=== PATIENT | male | born 1955 | race Caucasian/White ===

== ENCOUNTER 2019-10-17 01:18 | Observation (INO) | payer SELFPAY ==
[2019-10-17] VITALS (26 sets, daily range): BP systolic 112–156; BP diastolic 68–89; PULSE 70–112; RESP 15–29; TEMP 36.7–37.2; O2SAT 87–100; BMI 23.7
--- NOTE | 2019-10-17 01:22 | XR_ITS ---
WS: [id number] Portable AP upright chest, 10/17/2019 Clinical Data: cough Comparison: Portable chest, 07/13/2018. Findings: No nodules, masses or effusions are seen. The heart is normal. The pulmonary vascularity is not increased. No pneumonia or pneumothorax is seen. There is a small cyst in the proximal right hum erus. XR/XR chest 1V portable [id number] Impression: Negative chest.
--- NOTE | 2019-10-17 01:22 | ECG_ITS ---
Measurements Intervals [place] Rate: 76 P: 76 WA: 135 QRS: 79 QRSD: 88 T: 77 QT: 333 QTc: 376 SINUS RHYTHM MINIMAL VOLTAGE CRITERIA FOR LVH, CONSIDER NORMAL VARIANT Compared to ECG 07/13/2018 03:07:48 Sinus arrhythmia no longer present Electronically Signed On 10-17-2019 19:51:19 CDT by Ivory Zarate M.D. [id number]
--- NOTE | 2019-10-17 01:26 | ED_ITS ---
HPI - Chest Pain General: Chief Complaint: Chest Pain Stated Complaint: chest wall pain Time Seen by Provider: 10/17/19 01:19 History of Present Illness: HPI narrative: Mario is a 64-year-old male comes in complaining of chest pain. Most of history is taken from EMS as the patient would not cooperate to give a history. EMS reports the patient had abrupt onset left-sided chest pain. It was reproducible to palpation by EMS. There is no reported radiation, nausea or vomiting, or shortness of breath. The patient was given aspirin and nitroglycerin in route with no improvement. He was given 100 mcg of fentanyl and he did have good relief temporarily. There is been no reported cough or fever. EMS reports the patient does have a diagnosis of lung cancer. Further history on the lung cancer cannot be obtained again as the patient is not cooperative at this time. Review of Systems General: Reports: ROS unobtainable due to medical condition (Patient in pain and uncooperative) FOR[facility]LY [facility] ED PFSH: Medical History Chronic back pain COPD (chronic obstructive pulmonary disease) Lung cancer Obstructive sleep apnea Schizophrenia Surgical History H/O hernia repair Social History Smoking and tobacco status: current every day smoker Physical Exam Const: COMMON NORMALS: patient oriented x3, no limitations, healthy appearing and well nourished EXAM LIMITATIONS: no altered mental status GENERAL APPEARANCE: cooperative, well kempt, well developed and in distress HENMT: COMMON NORMALS: normocephalic, atraumatic, hearing grossly normal bilaterally, external ears normal, EAC's normal, Normal external nose present and moist oral mucous membranes HEAD & SCALP: normal to inspection, normocephalic and atraumatic FACE & SINUS: normal facial exam and face symmetric NOSE: Normal external nose present and Normal nares present EXTERNAL EAR: Yes external ears normal EXTERNAL AUDITORY CANAL: EAC's normal MOUTH: Normal oral and palatal mucosa present, lip normal and tongue normal Eye: COMMON NORMALS: Equal, round and reactive pupils present, EOMs intact bilaterally, conjunctivae normal and no scleral icterus GENERAL EYE: appearance normal, both eyes and all related structures ALIGNMENT: Yes alignment normal PERIORBITAL: periorbital findings normal EYELID: eyelids normal CONJUNCTIVA: Yes conjunctivae normal SCLERA: sclerae normal PUPIL: Yes Equal, round and reactive pupils present Neck/C-Spine: COMMON NORMALS: full ROM, no lymphadenopathy, supple, no meningeal signs and no JVD GENERAL: Yes normal visual inspection and Yes t rachea midline CERVICAL SPINE: Yes cervical ROM normal Chest: COMMONS NORMALS: normal inspection of the chest and normal palpation of entire chest wall CHEST: No crepitus and Yes tenderness costochondral junction (Left side) Resp: COMMON NORMALS: normal respiratory effort, No retractions, No use of accessory muscles and clear to auscultation bilaterally EFFORT & INSPECTION: Yes able to speak in complete sentences AUSCULTATION: clear to auscultation bilaterally, no crackles, no rales, no rhonchi and no wheezes Cardio: COMMON NORMALS: no JVD, regular rate, regular rhythm, S1 normal heart sound present, S2 normal heart sound present, No gallops present (Cardio), No clicks present (Cardio), No murmurs present (Cardio) and No rub (Cardio) RATE: regular rate RHYTHM: regular rhythm HEART SOUNDS: S1 normal heart sound present, S2 normal heart sound present, no click, no gallops, no murmurs and no rubs GI: COMMON NORMALS: Soft to palpation, non-tender, No hepatosplenomegaly present and no masses PALPATION: Yes Soft to palpation, No Tenderness to palpation present (GI), No Guarding due to palpation present (GI), No Rigid due to palpation, Yes No hepatosplenomegaly present, No Hernia present, No Palpable mass present and No Pulsatile mass present : COMMON NORMALS: Yes no CVA tenderness BLADDER/KIDNEY EXAM: Yes no CVA tenderness Back/Pelvis: COMMON NORMALS: no CVA tenderness, thoracic and lumbar spine normal to inspection, no thoracic nor lumbar tenderness and thoraco-lumbar ROM normal Extremity: COMMON NORMALS: normal to inspection, full ROM, capillary refill normal, no joint enlargement, no clubbing, cyanosis or edema and no calf tenderness Neuro: COMMON NORMALS: patient oriented x3, CN's II-XII intact bilaterally, moves all extremities, no focal motor deficits and no sensory deficits noted MENINGEAL SIGNS: Yes no meningeal signs SPEECH: speech normal Psych: APPEARANCE: Yes well kempt Skin: COMMON NORMALS: no rashes or lesions noted, turgor normal, no jaundice, no petechiae and no mottling GENERAL SKIN EXAM: no rashes or lesions noted and turgor normal Course Vital Signs: Vital signs: Vital Signs Temperature 98.2 F 10/17/19 01:26 Pulse Rate 109 H 10/17/19 04:55 Respiratory Rate 20 H 10/17/19 04:27 Blood Pressure 137/78 10/17/19 04:00 Pulse Oximetry 95 10/17/19 04:55 MDM - Chest Pain MDM Narrative: Medical decision making narrative: Mr. Schmitt is a 64-year-old male who comes in complaining of sharp pleuritic left-sided chest pain. There is no evidence of pulmonary embolism but he does show pneumonitis. The patient is not cooperative even after pain medication to give a more thorough history. He is not in respiratory distress but every time we arouse him to speak with him he acts as though he is in severe pain but then when left alone he goes back to sleep without any difficulties. [id number] -the patient continued to demand pain medication and after 1 mg of Dilaudid and 4 of morphine he was comfortable. We noticed he was mildly hypoxic. ABG was performed which showed mild CO2 retention. We tried to place him on BiPAP so we would not have to reverse his pain control but the patient will not tolerate wearing it. He is combative with us. Unfortunately he is alert to person, place, time and situation and is refusing to wear the BiPAP. As he has been awoken he is asking for more pain medication. Mentation is much more clear. Lab Data: Labs: Lab Results 10/17/19 10/17/19 10/17/19 Range/Units 01:45 01:45 01:45 WBC 12.5 H (4.0-10.0) 10^3/ uL RBC 4.27 (4.1-5.3) 10^6/u L Hgb 13.1 (11.7-16.6) g/dL Hct 40.1 L (42.0-52.0) % MCV 93.9 (80-94) fL MCH 30.7 (28.0-34.0) pg MCHC 32.7 (30.0-36.0) g/dL RDW 13.1 (12.1-15.1) % Plt Count 267 (130-400) 10^3/c mm MPV 10.7 H (7.4-10.4) fL Neut % (Auto) 86.3 % Lymph % (Auto) 7.4 % [place] % (Auto) 5.3 % Eos % (Auto) 0.5 % Baso % (Auto) 0.2 % Neut # (Auto) 10.8 H (1.8-7.7) 10^3/u L Lymph # (Auto) 0.9 (0.8-4.8) 10^3/u L [place] # (Auto) 0.7 (0.2-0.9) 10^3/u L Eos # (Auto) 0.1 (0.0-0.8) 10^3/u L Baso # (Auto) 0.0 (0.0-0.1) 10^3/u L Nucleated RBC % (a uto) 0 % Nucleated RBCs # 0.0 /100WBC D-Dimer 0.39 (0-0.59) ug/mIFE U Specimen Type Sample Site ABG pH (7.35-7.45) ABG pCO2 (35-45) mmHg ABG pO2 (80.0-100.0) mmH g ABG HCO3 (22-26) mmol/L ABG Base Excess (-2.0-2.0) mmol/ L Jose Test Hematocrit (42-52) % O2 Delivery Device O2 Liters/Min % Band Master ID Sodium 139 (136-145) mmol/L Potassium 3.7 (3.5-5.1) mmol/L Chloride 101 (98-107) mmol/L Carbon Dioxide 24 (22-29) mmol/L Anion Gap 17.7 (5-19) BUN 21 (8-23) mg/dL Creatinine 0.7 (0.7-1.2) mg/dL GFR Calculation 114.3 (90-130) mL/min Glucose 119 H (65-115) mg/dL Calculated Osmolal ity 286 (285-295) mOsm/k g Lactic Acid (0.5-2.2) mmol/L Calcium 9.1 (8.5-10.5) mg/dL Magnesium 2.0 (1.7-2.3) mg/dL Total Bilirubin 0.6 (0.15-1.2) mg/dL AST 26 (0-40) U/L ALT 20 (0-41) U/L Alkaline Phosphata se 90 (40-130) IU/L Troponin T Baselin e (0-15) ng/mL Troponin T 120 Min [place] (0-15) ng/mL Delta Troponin T (0-10) ABS# Total Protein 7.0 (6.6-8.7) g/dL Albumin 4.3 (3.5-5.2) g/dL Globulin 2.7 (1.3-4.6) g/dL Lipase 21 (13-60) U/L 10/17/19 10/17/19 10/17/19 Range/Units 01:45 01:45 04:10 WBC (4.0-10.0) 10^3/ uL RBC (4.1-5.3) 10^6/u L Hgb (11.7-16.6) g/dL Hct (42.0-52.0) % MCV (80-94) fL MCH (28.0-34.0) pg MCHC (30.0-36.0) g/dL RDW (12.1-15.1) % Plt Count (130-400) 10^3/c mm MPV (7.4-10.4) fL Neut % (Auto) % Lymph % (Auto) % [place] % (Auto) % Eos % (Auto) % Baso % (Auto) % Neut # (Auto) (1.8-7.7) 10^3/u L Lymph # (Auto) (0.8-4.8) 10^3/u L [place] # (Auto) (0.2-0.9) 10^3/u L Eos # (Auto) (0.0-0.8) 10^3/u L Baso # (Auto) (0.0-0.1) 10^3/u L Nucleated RBC % (a uto) % Nucleated RBCs # /100WBC D-Dimer (0-0.59) ug/mIFE U Specimen Type Sample Site ABG pH (7.35-7.45) ABG pCO2 (35-45) mmHg ABG pO2 (80.0-100.0) mmH g ABG HCO3 (22-26) mmol/L ABG Base Excess (-2.0-2.0) mmol/ L Jose Test Hematocrit (42-52) % O2 Delivery Device O2 Liters/Min % Band Master ID Sodium (136-145) mmol/L Potassium (3.5-5.1) mmol/L Chloride (98-107) mmol/L Carbon Dioxide (22-29) mmol/L Anion Gap (5-19) BUN (8-23) mg/dL Creatinine (0.7-1.2) mg/dL GFR Calculation (90-130) mL/min Glucose (65-115) mg/dL Calculated Osmolal ity (285-295) mOsm/k g Lactic Acid 0.6 (0.5-2.2) mmol/L Calcium (8.5-10.5) mg/dL Magnesium (1.7-2.3) mg/dL Total Bilirubin (0.15-1.2) mg/dL AST (0-40) U/L ALT (0-41) U/L Alkaline Phosphata se (40-130) IU/L Troponin T Baselin e 9 (0-15) ng/mL Troponin T 120 Min [place] 9.86 (0-15) ng/mL Delta Troponin T 0.86 (0-10) ABS# Total Protein (6.6-8.7) g/dL Albumin (3.5-5.2) g/dL Globulin (1.3-4.6) g/dL Lipase (13-60) U/L 05/18/20 Range/Units 04:30 WBC (4.0-10.0) 10^3/ uL RBC (4.1-5.3) 10^6/u L Hgb (11.7-16.6) g/dL Hct (42.0-52.0) % MCV (80-94) fL MCH (28.0-34.0) pg MCHC (30.0-36.0) g/dL RDW (12.1-15.1) % Plt Count (130-400) 10^3/c mm MPV (7.4-10.4) fL Neut % (Auto) % Lymph % (Auto) % [place] % (Auto) % Eos % (Auto) % Baso % (Auto) % Neut # (Auto) (1.8-7.7) 10^3/u L Lymph # (Auto) (0.8-4.8) 10^3/u L [place] # (Auto) (0.2-0.9) 10^3/u L Eos # (Auto) (0.0-0.8) 10^3/u L Baso # (Auto) (0.0-0.1) 10^3/u L Nucleated RBC % (a uto) % Nucleated RBCs # /100WBC D-Dimer (0-0.59) ug/mIFE U Specimen Type Arterial Sample Site Radial, right ABG pH 7.27 L (7.35-7.45) ABG pCO2 54.4 H (35-45) mmHg ABG pO2 62.8 L (80.0-100.0) mmH g ABG HCO3 25.2 (22-26) mmol/L ABG Base Excess -2.4 L (-2.0-2.0) mmol/ L Jose Test N/a Hematocrit 40.5 L (42-52) % O2 Delivery Device Nc O2 Liters/Min 3.5 % Band Master ID [email or web address] Sodium (136-145) mmol/L Potassium (3.5-5.1) mmol/L Chloride (98-107) mmol/L Carbon Dioxide (22-29) mmol/L Anion Gap (5-19) BUN (8-23) mg/dL Creatinine (0.7-1.2) mg/dL GFR Calculation (90-130) mL/min Glucose (65-115) mg/dL Calculated Osmolal ity (285-295) mOsm/k g Lactic Acid (0.5-2.2) mmol/L Calcium (8.5-10.5) mg/dL Magnesium (1.7-2.3) mg/dL Total Bilirubin (0.15-1.2) mg/dL AST (0-40) U/L ALT (0-41) U/L Alkaline Phosphata se (40-130) IU/L Troponin T Baselin e (0-15) ng/mL Troponin T 120 Min [place] (0-15) ng/mL Delta Troponin T (0-10) ABS# Total Protein (6.6-8.7) g/dL Albumin (3.5-5.2) g/dL Globulin (1.3-4.6) g/dL Lipase (13-60) U/L Imaging Data^: CXR: My impression: Normal heart size, left upper lobe infiltrate EKG Data^: EKG 1: Attestation: I personally reviewed and interpreted this EKG as follows: EKG interpretation date: 10/17/19 EKG interpretation time: 01:33 Interpretation: Normal sinus rhythm at 76 beats a minute, LVH, nonspecific ST and T wave changes. Similar to previous. Coding Level of Care Code ED Operator Specialist Communications for Chg Fwd Exam Comprehensive
[2019-10-17] MEDS: sodium chloride 0.9% 1,000 ML 999 ML IV (01:49)
[2019-10-17 01:50] LABS: Basophils % 0.2 %; Eosinophils # 0.1 10^3/uL (0.0-0.8); Eosinophils % 0.5 %; Hematocrit 40.1 % (42.0-52.0); Hemoglobin 13.1 g/dL (11.7-16.6); Lymphocytes # 0.9 10^3/uL (0.8-4.8); Lymphocytes % 7.4 %; Mean Corpuscular HGB Conc 32.7 g/dL (30.0-36.0); Mean Corpuscular Hemoglobin 30.7 pg (28.0-34.0); Mean Corpuscular Volume 93.9 fL (80-94); Mean Platelet Volume 10.7 fL (7.4-10.4); Monocytes # 0.7 10^3/uL (0.2-0.9); Monocytes % 5.3 %; Neutrophils # 10.8 10^3/uL (1.8-7.7); Neutrophils % 86.3 %; Nucleated Red Blood Cells % 0 %; Platelet Count 267 10^3/cmm (130-400); Red Blood Count 4.27 10^6/uL (4.1-5.3); Red Cell Distribution Width 13.1 % (12.1-15.1); White Blood Count 12.5 10^3/uL (4.0-10.0)
[2019-10-17] MEDS: ondansetron 2 mg/ML SDV 2 mL 4 MG IVP (01:50)
[2019-10-17] MEDS: HYDROmorphone 1 mg/mL INJ 1 mL IVP (01:51)
--- NOTE | 2019-10-17 01:59 | CTR_ITS ---
PROCEDURE INFORMATION: Exam: CT Angiography Chest With Contrast Exam date and time: 10/17/2019 2:33 AM Age: 64 years old Clinical indication: Chest wall pain; Additional info: Chest pain TECHNIQUE: Imaging protocol: Computed tomographic angiography of the chest with intravenous contrast. 3D rendering: MIP and/or 3D reconstructed images were created by the technologist. Radiation optimization: All CT scans at this facility use at least one of these dose optimization techniques: automated exposure control; mA and/or kV adjustment per patient size (includes targeted exams where dose is matched to clinical indication); or iterative reconstruction. Contrast material: OMNI 350; Contrast volume: 95 ml; Contrast route: IV; COMPARISON: CR XR chest 1V portable [id number] 10/17/2019 1:48 AM RADIATION DOSE METRICS: Total DLP: 600.42 mGy-cm FINDINGS: Pulmonary arteries: Normal. No pulmonary emboli. Aorta: Unremarkable. No aortic aneurysm. No aortic dissection. Lungs: A focal patchy opacity is seen in the right upper lobe posteriorly. More prominent patchy opacity seen in the left upper lobe anteriorly. Third opacities seen superimposed over the right hemidiaphragm posteriorly. These findings could represent a patchy bilateral pneumonitis, left more prominent than right. Pleural space: Unremarkable. No pneumothorax. No pleural effusion. Heart: Unremarkable. No cardiomegaly. No pericardial effusion. Lymph nodes: Prominent mediastinal lymph nodes seen, the largest seen in the aortopulmonic window measuring 16.2 mm . A prominent partially calcified subcarinal lymph node is seen. Adrenals: The left adrenal gland is mildly prominent likely representing adrenal hyperplasia. No discrete masses are seen. Bones/joints: Unremarkable. No acute fracture. Soft tissues: Unremarkable. CT/CT angio chest PE protcl [id number] IMPRESSION: 1. Patchy opacities are seen within the hemithoraces bilaterally, the largest opacities seen in the left upper lobe anteriorly. These findings could represent patchy bilateral pneumonitis. 2. Mildly prominent mediastinal lymph nodes are seen. These could represent reactive lymph nodes. 3. Mildly prominent left adrenal gland without evidence of discrete masses. This likely represents adrenal hyperplasia. Radiation Dose CTDIVOL = (mGy): DLP = 600.42 (mGy-cm)
[2019-10-17 02:05] LABS: Alanine Aminotransferase 20 U/L (0-41); Albumin Level 4.3 g/dL (3.5-5.2); Alkaline Phosphatase 90 IU/L (40-130); Anion Gap 17.7 (5-19); Aspartate Amino Transferase 26 U/L (0-40); Blood Urea Nitrogen 21 mg/dL (8-23); Calcium 9.1 mg/dL (8.5-10.5); Carbon Dioxide 24 mmol/L (22-29); Chloride 101 mmol/L (98-107); Globulin 2.7 g/dL (1.3-4.6); Glomerular Filtration Rate 114.3 mL/min (90-130); Glucose 119 mg/dL (65-115); Lipase 21 U/L (13-60); Osmolality Calculated 286 mOsm/kg (285-295); Potassium 3.7 mmol/L (3.5-5.1); Sodium 139 mmol/L (136-145); Total Bilirubin 0.6 mg/dL (0.15-1.2)
[2019-10-17 02:06] LABS: Troponin(5th) Baseline 9 ng/mL (0-15)
[2019-10-17 02:13] LABS: D Dimer 0.39 ug/mIFEU (0-0.59)
[2019-10-17] MEDS: sodium chloride 0.9% 1,000 ML 100 ML IV (02:29)
[2019-10-17] MEDS: iohexol 350 mg/mL 100 mL Btl IV (02:34)
[2019-10-17] MEDS: morphine 4 mg/mL SDV 1 mL IVP ×2 (02:55→03:04)
--- NOTE | 2019-10-17 03:22 | ECG_ITS ---
Measurements Intervals [place] Rate: 104 P: 73 AL: 142 QRS: 81 QRSD: 86 T: 78 QT: 310 QTc: 408 SINUS TACHYCARDIA NONSPECIFIC T-WAVE ABNORMALITY Compared to ECG 07/13/2018 03:07:48 T-wave abnormality now present Sinus rhythm no longer present Sinus arrhythmia no longer present Left ventricular hypertrophy no longer present Electronically Signed On 10-17-2019 20:20:17 CDT by Ivory Zarate M.D. [email or web address]
[2019-10-17] MEDS: levofloxacin-dextrose 5 % 750 MG/150 ML PREMIX 150 MG IV (03:55)
[2019-10-17] MEDS: ipratropium-albuterol 3 mL Neb INHALATION (04:22)
[2019-10-17 04:27] LABS: Lactic Sepsis W/Reflex 0.6 mmol/L (0.5-2.2)
[2019-10-17 04:33] LABS: Troponin 5 2HR 9.86 ng/mL (0-15); Troponin 5 2HR Delta 0.86 ABS# (0-10)
[2019-10-17 04:36] LABS: ABG PCO2 54.4 mmHg (35-45); ABG PH Result 7.27 (7.35-7.45); Arterial Blood Gas Hematocrit 40.5 % (42-52); Base Excess ABG -2.4 mmol/L (-2.0-2.0); Blood Gas LPM 3.5 %; Blood Gas Sample Site Radial, right; Blood Gas Sample Type Arterial; HCO3 ABG 25.2 mmol/L (22-26); Oxygen Device NC; PO2 ABG 62.8 mmHg (80.0-100.0)
[2019-10-17] MEDS: ipratropium-albuterol 3 mL Neb 6 ML INHALATION (04:57)
--- NOTE | 2019-10-17 05:01 | P.HP_ITS ---
Providers/Chief Complaint Chief Complaint: chest wall pain History of Present Illness Mario Schmitt is a 64 year old male with past medical history of schizophrenia, COPD, chronic back pain who was brought by EMS due to complaints of chest pain. Reportedly the chest pain was reproducible. EKG did not show any acute ischemic changes. Troponin was negative. The patient received fentanyl by EMS 100 mcg. He was awake but not cooperative on presentation. Due to suspicion for possible PE the patient was sent to radiology for CTA. Due to complaints of continuous pain before and during the study the patient received morphine twice, probably total of 10 mg. Currently the patient is sedated. It seems that he can listen and understand the speech but chooses not to answer. He does not follow instructions. There is no significant distress. Unable to obtain additional information from the patient. CTA chest showed bilateral infiltrates concerning for possible pneumonitis. Ozzie galdamez in conversation with the ER physician he also mentioned having history of lung cancer. However there was no information in the chart regarding this diagnosis. Again because the patient is poor historian were unable to obtain details. Review of Systems General: Reports: ROS unobtainable due to mental status Medications/Allergies Allergies Allergy/AdvReac Type Severity Reaction Status Date / Time Sulfa (Sulfonamide Allergy ALGY-Rash Verified 10/17/19 01:26 Antibiotics) PFSH Acute PFSH: Medical History Chronic back pain COPD (chronic obstructive pulmonary disease) Lung cancer Obstructive sleep apnea Schizophrenia Surgical History H/O hernia repair Social History Smoking and tobacco status: current every day smoker Vitals/I&O/Wt Last Vital Signs Temp 98.2 F 10/17/19 01:26 Pulse 100 10/17/19 04:57 Resp 22 H 10/17/19 04:57 BP 137/78 10/17/19 04:00 Pulse Ox 95 10/17/19 04:57 10/16/19 10/16/19 10/17/19 14:59 22:59 06:59 Intake Total 1000 / 1000 Balance 1000 / 1000 Weight last 48 hrs Weight 83.915 kg Physical Exam Narrative: EXAM NARRATIVE: The patient is sedated and noncooperative. His eyes are closed. He occasionally opens his eyes but does not follow instructions. Does not answer to questions. Frequently moves in the bed. No distress. Skin is warm and dry. Moist mucous membranes. Eyes Robyn, extraocular muscles seem to be intact. No icterus. Neck is supple. No JVD Lungs no significant crackles or wheezes. No respiratory distress Heart S1, S2, regular Abdomen soft, nontender, bowel sounds are present Extremities trace edema no cyanosis no calf tenderness bilaterally normal capillary refill. Normal peripheral pulses. No facial asymmetry. Data : 10/17/19 01:45 10/17/19 01:45 Other Labs: Laboratory Results WBC 12.5 10^3/uL (4.0-10.0) H 10/17/19 01:45 RBC 4.27 10^6/uL (4.1-5.3) 10/17/19 01:45 Hgb 13.1 g/dL (11.7-16.6) 10/17/19 01:45 Hct 40.1 % (42.0-52.0) L 10/17/19 01:45 MCV 93.9 fL (80-94) 10/17/19 01:45 MCH 30.7 pg (28.0-34.0) 10/17/19 01:45 MCHC 32.7 g/dL (30.0-36.0) 10/17/19 01:45 RDW 13.1 % (12.1-15.1) 10/17/19 01:45 Plt Count 267 10^3/cmm (130-400) 10/17/19 01:45 MPV 10.7 fL (7.4-10.4) H 10/17/19 01:45 Neut % (Auto) 86.3 % 10/17/19 01:45 Lymph % (Auto) 7.4 % 10/17/19 01:45 [place] % (Auto) 5.3 % 10/17/19 01:45 Eos % (Auto) 0.5 % 10/17/19 01:45 Baso % (Auto) 0.2 % 10/17/19 01:45 Neut # (Auto) 10.8 10^3/uL (1.8-7.7) H 10/17/19 01:45 Lymph # (Auto) 0.9 10^3/uL (0.8-4.8) 10/17/19 01:45 [place] # (Auto) 0.7 10^3/uL (0.2-0.9) 10/17/19 01:45 Eos # (Auto) 0.1 10^3/uL (0.0-0.8) 10/17/19 01:45 Baso # (Auto) 0.0 10^3/uL (0.0-0.1) 10/17/19 01:45 Nucleated RBC % (auto) 0 % 10/17/19 01:45 Nucleated RBCs # 0.0 /100WBC 10/17/19 01:45 D-Dimer 0.39 ug/mIFEU (0-0.59) 10/17/19 01:45 Specimen Type Arterial 10/17/19 04:30 Sample Site Radial, right 10/17/19 04:30 ABG pH 7.27 (7.35-7.45) L 10/17/19 04:30 ABG pCO2 54.4 mmHg (35-45) H 10/17/19 04:30 ABG pO2 62.8 mmHg (80.0-100.0) L 10/17/19 04:30 ABG HCO3 25.2 mmol/L (22-26) 10/17/19 04:30 ABG Base Excess -2.4 mmol/L (-2.0-2.0) L 10/17/19 04:30 Jose Test N/a 10/17/19 04:30 Hematocrit 40.5 % (42-52) L 10/17/19 04:30 O2 Delivery Device Nc 10/17/19 04:30 O2 Liters/Min 3.5 % 10/17/19 04:30 Filling Machine Tender ID [email or web address] 10/17/19 04:30 Sodium 139 mmol/L (136-145) 10/17/19 01:45 Potassium 3.7 mmol/L (3.5-5.1) 10/17/19 01:45 Chloride 101 mmol/L (98-107) 10/17/19 01:45 Carbon Dioxide 24 mmol/L (22-29) 10/17/19 01:45 Anion Gap 17.7 (5-19) 10/17/19 01:45 BUN 21 mg/dL (8-23) 10/17/19 01:45 Creatinine 0.7 mg/dL (0.7-1.2) 10/17/19 01:45 GFR Calculation 114.3 mL/min (90-130) 10/17/19 01:45 Glucose 119 mg/dL (65-115) H 10/17/19 01:45 Calculated Osmolality 286 mOsm/kg (285-295) 10/17/19 01:45 Lactic Acid 0.6 mmol/L (0.5-2.2) 10/17/19 01:45 Calcium 9.1 mg/dL (8.5-10.5) 10/17/19 01:45 Magnesium 2.0 mg/dL (1.7-2.3) 10/17/19 01:45 Total Bilirubin 0.6 mg/dL (0.15-1.2) 10/17/19 01:45 AST 26 U/L (0-40) 10/17/19 01:45 ALT 20 U/L (0-41) 10/17/19 01:45 Alkaline Phosphatase 90 IU/L (40-130) 10/17/19 01:45 Troponin T Baseline 9 ng/mL (0-15) 10/17/19 01:45 Troponin T 120 Min[place] 9.86 ng/mL (0-15) 10/17/19 04:10 Delta Troponin T 0.86 ABS# (0-10) 10/17/19 04:10 Total Protein 7.0 g/dL (6.6-8.7) 10/17/19 01:45 Albumin 4.3 g/dL (3.5-5.2) 10/17/19 01:45 Globulin 2.7 g/dL (1.3-4.6) 10/17/19 01:45 Lipase 21 U/L (13-60) 10/17/19 01:45 Impressions Chest CTA 10/17/19 01:59 IMPRESSION: 1. Patchy opacities are seen within the hemithoraces bilaterally, the largest opacities seen in the left upper lobe anteriorly. These findings could represent patchy bilateral pneumonitis. 2. Mildly prominent mediastinal lymph nodes are seen. These could represent reactive lymph nodes. 3. Mildly prominent left adrenal gland without evidence of discrete masses. This likely represents adrenal hyperplasia. Radiation Dose CTDIVOL = (mGy): DLP = 600.42 (mGy-cm) A&P Additional A&P Information 64-year-old male with past medical history of COPD, chronic pain syndrome and schizophrenia who presented with complaints of chest pain. Received several doses of opiates and currently sedated. Also there is a suspicion that the patient is intentionally noncooperative with doctors and nurses. CTA chest shows bilateral infiltrates concerning for bilateral pneumonitis. The patient reported earlier having diagnosis of lung cancer. Details are unknown. EKG shows no acute ischemic changes and the troponin was negative. Reportedly the pain was reproducible. Chest pain. Probably noncardiac. Continue close monitoring. Bilateral pneumonitis. Was given Levaquin which we will continue. Checking procalcitonin level. It is possible that the findings on the imaging study are related to prior history of cancer. When the patient is more cooperative we will try to obtain more information regarding this diagnosis. Additional testing might be necessary. Additional referrals might be necessary. History of COPD. Currently stable. No evidence of exacerbation. Has mild hypoxia which responded well to supplemental oxygen. He will receive PRN DuoNeb's. Adrenal hyperplasia accidentally found on the chest CT. Please inform the patient prior to discharge and ask for outpatient follow-up with the primary care physician. DVT prophylaxis. Lovenox. Attestations Medical Necessity Statement*: Observation Coding Level of Care Code Acute Molding Process Technician for Italo Feliciano
[2019-10-17] MEDS: enoxaparin 40 mg/0.4 mL Syringe SUBCUT (05:16)
[2019-10-17] MEDS: sodium chloride 0.9% 1,000 ML 75 ML IV (06:01)
[2019-10-17 06:33] LABS: ABG PCO2 48.9 mmHg (35-45); ABG PH Result 7.31 (7.35-7.45); Arterial Blood Gas Hematocrit 40.3 % (42-52); Base Excess ABG -2.3 mmol/L (-2.0-2.0); Blood Gas Sample Site Radial, left; Blood Gas Sample Type Arterial; HCO3 ABG 24.5 mmol/L (22-26); Oxygen Device BIPAP; PO2 ABG 87.8 mmHg (80.0-100.0)
--- NOTE | 2019-10-17 07:22 | ECG_ITS ---
Measurements Intervals [place] Rate: 88 P: 68 AL: 120 QRS: 74 QRSD: 94 T: 77 QT: 354 QTc: 430 SINUS RHYTHM Compared to ECG 07/13/2018 03:07:48 Sinus arrhythmia no longer present Left ventricular hypertrophy no longer present Electronically Signed On 10-17-2019 20:17:53 CDT by Ivory Zarate M.D. [id number]
[2019-10-17 07:28] LABS: Procalcitonin 0.26 ng/mL (0-0.5)
--- NOTE | 2019-10-17 09:58 | PC.CHAP ---
Pastoral Care Encounter/Spiritual Assessment Type of Contact [] Declined dumper bulk system visit [] Patient/Family/Request visit [] Outpatient visit [] Follow-up visit [] Physician referral [] Code/Alert [x] Routine visit [] Staff referral [] Actively dying [x] Patient sleeping [] Family support [] [] Out of room [] Palliative care [] [] Receiving care in room [] Pre-surgical visit [] Trauma [] Long length of stay [] ICU visit [] Other: Relational/Emotional Strength [] Patient feels connected with others/family/visitors/staff [] Distress [] Loneliness/isolation [] Abandonment Spirituality of Patient [] Person of Rut [] Attends Episcopalian of their Rut [] Believes in Prayer [] Reads Bible or Faith materials [] There are Spiritual issues to be addressed Mental Retardation Aide Interventions [] Prayer [] Active listening [] Non-anxious presence [] Spiritual/emotional support [] Crisis/trauma care [] Spiritual counseling [] Bereavement support [] Provided bereavement packet [] Provided Bible/devotional materials [] Provided toy/stuffed animal, coloring book to patient or family member [] Provided Communion [] Anointing/Duff [] Salvation [x] Completed spiritual assessment [] Other: Impact on Illness or Injury [] Angry [] Fearful [] Anxious [] Often cries [] Exhaustion [] Unable to work [] Unable to attend catholic [] Unable to walk/stand [] Unable to read [] Unable to drive [] Unable to eat/drink [] Unable to sleep [] Unable to be with family [] Patient intubated [] Other: Summary Time spent with patient
[2019-10-17 15:15] LABS: Bilirubin Urine Neg (NEGATIVE); Blood Urine Neg (Negative); Glucose Urine UA Norm (Normal); Ketones Urine 1+ (Negative); Leukocyte Esterase Urine Negative (Negative); Nitrate Urine Negative (Negative); Protein Urine Neg (Negative); Urine Appearance Clear (CLEAR); Urine Color Yellow (Yellow); Urobilinogen Urine Norm (Negative); pH Urine 5 (5-7)
[2019-10-17 15:21] LABS: Bacteria Urine 1+; Squamous Epithelial Cell Urine 0-4 (0-5); WBC Urine 0-4 /hpf (0-5)
[2019-10-17 15:22] LABS: Add Urine Culture? No
--- NOTE | 2019-10-17 16:21 | PC.NURSE ---
HOURLY ROUNDING PT RECEIVED A PHONE CALL FROM FAMILY. NURSE NOTIFIED PT OF PHONE CALL. PT SAID, I DON'T WANT TO TALK TO ANYONE RIGHT NOW. FAMILY MEMBER NOTIFIED TO CALL BACK LATER. NURSE PAOLO PRESENT IN THE PT ROOM AT THIS TIME.
--- NOTE | 2019-10-17 16:41 | PC.NURSE ---
NURSE ROUNDING 1330 UPON ENTERING ROOM PT IS SCREAMING, WHERE THE FUCK IS MY FOOD? I HAVEN'T ATE SINCE 11 LAST NIGHT! I'M LEAVING, I DONT CARE. I'M NOT GETTING WHAT I WANT HERE, I HAVEN'T FUCKING ATE ANYTHING SINCE 11! THIS NURSE REPLIED, YOU'RE DOCTOR JUST PUT IN A DIET ORDER. YOU'RE FOOD TRAY WILL BE UP HERE SHORTLY. WE HAVE SOME SNACKS YOU CAN HAVE IF YOU WOULD LIKE. PT STATES, WHERE WAS MY FOOD 3 FUCKING HOURS AGO WHEN I ASK FOR IT. I DON'T CARE I AM GOING HOME. NURSE EXPLAINS AGAIN THAT THE PT DIET WAS NPO AT THE TIME AND THE PHYSICIAN JUST PLACED NEW ORDERS FOR A REGULAR DIET. PT PROCEEDED TO RIP OFF HIS GOWN AND TELEMETRY AND THROW THEM ACROSS THE ROOM. SECURITY WAS CALLED AND CHARGE NURSE REE CAME TO ROOM. DR. WILLIS NOTIFIED. PT STATES, WHY HAVE I NOT GOTTEN ANY FOOD? IT'S BECAUSE NO DOCTOR HAS CAME TO SEE ME. NO ONE. IF I'M NOT BEING FED WHY AM I HERE? PT THEN GO IN THE RESTROOM AND CHANGES INTO JEANS. THE ASSISTANT NEWS DIRECTOR BROUGHT PT SNACKS. PT WALKED OVER TO BED AND BEGAN EATING. PT STATES, I'LL STAY, BUT I WANT TO SEE MY DOCTOR SOON AND I WANT MORE FOOD. NURSE, AGAIN NOTIFIED DR WILLIS.
--- NOTE | 2019-10-17 18:07 | PC.NURSE ---
PHYSICIAN ROUNDING 174 UPON ENTERING PT ROOM WITH DR. WILLIS. PT RESTING IN BED WITH EYES CLOSED. DR. WILLIS ASKED PT, HOW ARE YOU FEELING MR. PALMA? PT STATED, NOT GOOD, MY CHEST HURTS THAT'S IT. DR. WILLIS ATTEMPTED TO ASK PT MORE QUESTION. PT BECAME UNCOOPERATIVE,NONVERBAL WITH EYES OPEN, REFUSING TO ANSWER ANY QUESTION OR SPEAK BACK TO THE PHYSICIAN. PT CONTINUED TO REST IN BED. DR. WILLIS STATED THAT SHE WOULD LIKE PT REST, ROUND ON PT AGAIN BEFORE END OF SHIFT.
--- NOTE | 2019-10-17 18:23 | PC.NURSE ---
@ 1750 Patient request to see physician. Dr went to talk with patient and patient became agitated and verbally inappropriate with physician during conversation. Patient voices that he hasn't seen physician since 8 last night. States what are you doing for me? Security called. Attempt to speak with patient without success. He states hes leaving and going home to [place]. AMA papers filled out.
--- NOTE | 2019-10-17 18:29 | PC.NURSE ---
SHORTLY AFTER ROUNDING WITH MINERVA OLIVAS. MR. PALMA WAS FOUND ANGRILY WALKING DOWN THE RUBIO FROM HIS ROOM. THIS NURSE ASKED, MR. PALMA I SEE YOU'RE WALKING THE HALLS. ARE YOU DOING OKAY? REPLIED, NO, I'M NOT OKAY. MY FUCKING DOCTOR CAME INTO THE ROOM AND ASKED ME HOW I WAS DOING AND THEN LEFT. SHE DIDN'T ASK ANYTHING ELSE OR EXPLAIN ANYTHING TO ME. THIS NURSE REPLIED, DR. WILLIS IS WITH ANOTHER PT AT THE MOMENT. SHE WAS LETTING YOU REST A LITTLE WHILE LONGER AND THEN SHE INTENDED TO COME BACK IN YOUR ROOM. PT REPLAIED, I NEED TO SEE MY FUCKING DOCTOR NOW.I'M TIRED OF THIS FUCKING PLACE. PT THEN WALKED BACK TO HIS ROOM. DR. WILLIS WAS NOTIFIED. ROUNDED ON PT IMMEDIATELY AFTER BEING NOTIFIED. CHARGE NURSE REE AND THIS NURSE IN THE ROOM AT BEDSIDE. DR. WILLIS BEGAN TO SPEAK WITH PT. PT BECAME AGITATED AND VERBALLY INAPPROPRIATE WITH PHYSICIAN DURING CONVERSATION. PT STATES, I HAVEN'T BEEN SEEN BY A PHYSICIAN SINCE 1999 LAST NIGHT. WHAT ARE YOU DOING FOR ME SECURITY CALLED. PT DEMANDED TO LEAVE AMA. PT SIGNED AMA PAPERS, IVs REMOVED. PT WALKED OUT BY NURSE NUTRITION REPRESENTATIVE, CHARGE NURSE, AND SECURITY.
--- NOTE | 2019-10-17 21:48 | PM.MISC ---
Miscellaneous Note Note: Patient quite verbally aggressive and abusive during my encounter stating that I should have seen him sooner though he was seen by an ED provider as well as crime scene specialist earlier this morning. Tried to review care plan with the patient with continued escalation in her verbal aggression. Nurses Raquel Eldridge and Hermelinda Jordan present in room during the encounter. Patient then elected to leave A.
--- NOTE | 2019-10-17 21:49 | P.DS_ITS ---
Discharge Providers Date of Admission: 10/17/19 04:53 Date of Discharge: October 17, 2019 Attending Provider at Admission: Rory Byrd Attending Provider at Discharge: Rory Byrd Diagnoses at Discharge Discharge Diagnosis (1) COPD (chronic obstructive pulmonary disease): Status: Acute Problem details: -Noted bilateral pneumonitis on imaging -Oxygen dependent at baseline with a 2 L nasal cannula requirement -Was treated with IV steroids, empiric laura Tolliver Qualifiers: COPD type: COPD with acute exacerbation Qualified Code(s): J44.1 - Chronic obstructive pulmonary disease with (acute) exacerbation Other Information Additional DC diagnoses/information: -hx of lung cancer -hx of schizophrenia -chronic smoker Reason for Visit Reason for Visit: Reason For Visit: chest wall pain Hospital Course Hospital Course: Patient was admitted to the medical surgical floor and started on empiric IV antibiotics, received nebulizer treatments with close monitoring of his respiratory status. He was noted to have bilateral pneumonitis on imaging and was on supplemental oxygen support as well. Patient was quite verbally aggressive during my encounter with him and he elected to leave [place]. Physical Exam Const: COMMON NORMALS: no acute distress and patient oriented x3 GENERAL APPEARANCE: cooperative and comfortable ORIENTATION/CONSCIOUSNESS: Yes awake HENMT: COMMON NORMALS: normocephalic, atraumatic, hearing grossly normal bilaterally and moist oral mucous membranes HEAD & SCALP: normocephalic and atraumatic Eye: COMMON NORMALS: Equal, round and reactive pupils present, EOMs intact bilaterally and conjunctivae normal CONJUNCTIVA: Yes conjunctivae normal PUPIL: Yes Equal, round and reactive pupils present Neck/C-Spine: COMMON NORMALS: full ROM GENERAL: Yes normal visual inspection and Yes trachea midline Resp: COMMON NORMALS: normal respiratory effort, No retractions and No use of accessory muscles EFFORT & INSPECTION: Yes able to speak in complete sentences, Yes symmetric chest movement and No tachypneic AUSCULTATION: diminished lung sounds OTHER: -on 3 L NC Cardio: COMMON NORMALS: regular rate, regular rhythm, S1 normal heart sound present, S2 normal heart sound present and No murmurs present (Cardio) RATE: regular rate RHYTHM: regular rhythm HEART SOUNDS: S1 normal heart sound present and S2 normal heart sound present GI: COMMON NORMALS: Normal to inspection, nondistended, normoactive bowel sounds present, Soft to palpation and non-tender PALPATION: Yes Soft to palpation Extremity: COMMON NORMALS: normal to inspection, full ROM, no clubbing, cyanosis or edema and no pedal edema Neuro: COMMON NORMALS: patient oriented x3, moves all extremities, no focal motor deficits, no sensory deficits noted and gait normal Psych: COMMON NORMALS: mental status grossly normal, Normal thought process present, cooperative, normal affect and speech normal SPEECH: Yes normal speech THOUGHT PROCESS: Normal thought process present Skin: COMMON NORMALS: no rashes or lesions noted, no jaundice, no petechiae and no mottling GENERAL SKIN EXAM: no rashes or lesions noted Discharge Data Data Completed and Pending: Completed Studies During Hospitalization Category Date Time Status CT angio chest PE protcl [id number] Stat Cat Scan 10/17/19 01:59 Completed XR chest 1V lily ble [id number] Stat Exams 10/17/19 01:22 Completed Pending at discharge Category Date Time Status Basic Metabolic P emil AM LABS Lab 10/18/19 04:00 Ordered Complete Blood Co unt w/Auto AM LABS Lab 10/18/19 04:00 Ordered Complete Blood Co unt w/Auto AM LABS Lab 10/19/19 04:00 Ordered Complete Blood Co unt w/Auto AM LABS Lab 10/20/19 04:00 Ordered Magnesium AM LABS Lab 10/18/19 04:00 Ordered Labs from last 24 hours 10/17/19 10/17/19 10/17/19 13:30 08:04 06:27 WBC RBC Hgb Hct MCV MCH MCHC RDW Plt Count MPV Neut % (Auto) Lymph % (Auto) [place] % (Auto) Eos % (Auto) Baso % (Auto) Neut # (Auto) Lymph # (Auto) [place] # (Auto) Eos # (Auto) Baso # (Auto) Nucleated RBC % (a uto) Nucleated RBCs # D-Dimer Specimen Type Arterial Sample Site Radial, left ABG pH 7.31 L ABG pCO2 48.9 H ABG pO2 87.8 ABG HCO3 24.5 ABG Base Excess -2.3 L Jose Test N/a Hematocrit 40.3 L O2 Delivery Device Bipap O2 Liters/Min FiO2 30.0 Firer Portable Boiler ID [id number] Sodium Potassium Chloride Carbon Dioxide Anion Gap BUN Creatinine GFR Calculation Glucose Calculated Osmolal ity Lactic Acid Calcium Magnesium Total Bilirubin AST ALT Alkaline Phosphata se Troponin I 6 Hour 11.50 Troponin I Hi Sens Del 2.50 Troponin T Baselin e Troponin T 120 Min [place] Troponin T Total Protein Albumin Globulin Lipase Procalcitonin TSH Urine Color Yellow Urine Appearance Clear Urine pH 5 Ur Specific Gravit y 1.020 Urine Protein Neg Urine Glucose (UA) Norm Urine Ketones 1+ H Urine Blood Neg Urine Nitrate Negative Urine Bilirubin Neg Urine Urobilinogen Norm Ur Leukocyte Nadiya ase Negative Urine RBC None Urine WBC 0-4 H Ur Squamous Epith Cells 0-4 H Urine Bacteria 1+ H 10/17/19 10/17/19 10/17/19 04:30 04:10 04:10 WBC RBC Hgb Hct MCV MCH MCHC RDW Plt Count MPV Neut % (Auto) Lymph % (Auto) [place] % (Auto) Eos % (Auto) Baso % (Auto) Neut # (Auto) Lymph # (Auto) [place] # (Auto) Eos # (Auto) Baso # (Auto) Nucleated RBC % (a uto) Nucleated RBCs # D-Dimer Specimen Type Arterial Sample Site Radial, right ABG pH 7.27 L ABG pCO2 54.4 H ABG pO2 62.8 L ABG HCO3 25.2 ABG Base Excess -2.4 L Jose Test N/a Hematocrit 40.5 L O2 Delivery Device Nc O2 Liters/Min 3.5 FiO2 Firer Portable Boiler ID [id number] Sodium Potassium Chloride Carbon Dioxide Anion Gap BUN Creatinine GFR Calculation Glucose Calculated Osmolal ity Lactic Acid Calcium Magnesium Total Bilirubin AST ALT Alkaline Phosphata se Troponin I 6 Hour Troponin I Hi Sens Del Troponin T Baselin e Troponin T 120 Min [place] Troponin T Total Protein Albumin Globulin Lipase Procalcitonin 0.26 TSH 2.60 Urine Color Urine Appearance Urine pH Ur Specific Gravit y Urine Protein Urine Glucose (UA) Urine Ketones Urine Blood Urine Nitrate Urine Bilirubin Urine Urobilinogen Ur Leukocyte Nadiya ase Urine RBC Urine WBC Ur Squamous Epith Cells Urine Bacteria 10/17/19 10/17/19 10/17/19 04:10 01:45 01:45 WBC RBC Hgb Hct MCV MCH MCHC RDW Plt Count MPV Neut % (Auto) Lymph % (Auto) [place] % (Auto) Eos % (Auto) Baso % (Auto) Neut # (Auto) Lymph # (Auto) [place] # (Auto) Eos # (Auto) Baso # (Auto) Nucleated RBC % (a uto) Nucleated RBCs # D-Dimer Specimen Type Sample Site ABG pH ABG pCO2 ABG pO2 ABG HCO3 ABG Base Excess Jose Test Hematocrit O2 Delivery Device O2 Liters/Min FiO2 Firer Portable Boiler ID Sodium Potassium Chloride Carbon Dioxide Anion Gap BUN Creatinine GFR Calculation Glucose Calculated Osmolal ity Lactic Acid 0.6 Calcium Magnesium Total Bilirubin AST ALT Alkaline Phosphata se Troponin I 6 Hour Troponin I Hi Sens Del Troponin T Baselin e 9 Troponin T 120 Min [place] Troponin T 0.86 Total Protein Albumin Globulin Lipase Procalcitonin TSH Urine Color Urine Appearance Urine pH Ur Specific Gravit y Urine Protein Urine Glucose (UA) Urine Ketones Urine Blood Urine Nitrate Urine Bilirubin Urine Urobilinogen Ur Leukocyte Nadiya ase Urine RBC Urine WBC Ur Squamous Epith Cells Urine Bacteria 10/17/19 10/17/19 10/17/19 01:45 01:45 01:45 WBC 12.5 H RBC 4.27 Hgb 13.1 Hct 40.1 L MCV 93.9 MCH 30.7 MCHC 32.7 RDW 13.1 Plt Count 267 MPV 10.7 H Neut % (Auto) 86.3 Lymph % (Auto) 7.4 [place] % (Auto) 5.3 Eos % (Auto) 0.5 Baso % (Auto) 0.2 Neut # (Auto) 10.8 H Lymph # (Auto) 0.9 [place] # (Auto) 0.7 Eos # (Auto) 0.1 Baso # (Auto) 0.0 Nucleated RBC % (a uto) 0 Nucleated RBCs # 0.0 D-Dimer 0.39 Specimen Type Sample Site ABG pH ABG pCO2 ABG pO2 ABG HCO3 ABG Base Excess Jose Test Hematocrit O2 Delivery Device O2 Liters/Min FiO2 Firer Portable Boiler ID Sodium 139 Potassium 3.7 Chloride 101 Carbon Dioxide 24 Anion Gap 17.7 BUN 21 Creatinine 0.7 GFR Calculation 114.3 Glucose 119 H Calculated Osmolal ity 286 Lactic Acid Calcium 9.1 Magnesium 2.0 Total Bilirubin 0.6 AST 26 ALT 20 Alkaline Phosphata se 90 Troponin I 6 Hour Troponin I Hi Sens Del Troponin T Baselin e Troponin T 120 Min [place] Troponin T Total Protein 7.0 Albumin 4.3 Globulin 2.7 Lipase 21 Procalcitonin TSH Urine Color Urine Appearance Urine pH Ur Specific Gravit y Urine Protein Urine Glucose (UA) Urine Ketones Urine Blood Urine Nitrate Urine Bilirubin Urine Urobilinogen Ur Leukocyte Nadiya ase Urine RBC Urine WBC Ur Squamous Epith Cells Urine Bacteria Vitals: Last Vital Signs Temp 98.1 F 10/17/19 16:00 Pulse 70 10/17/19 16:00 Resp 18 10/17/19 16:00 BP 121/71 10/17/19 16:00 Pulse Ox 100 10/17/19 16:00 Discharge Plan Discharge Patient Disposition: Left Against Medical Advice Condition: Stable Prescriptions: No Action No Known Home Medications RF: 0 Discharge Orders: Discharge Order (Routine); Ordered 10/17/19 Ordered By: Noelle Fernandez Discharge Diet: Usual diet Discharge Activity: Resume usual activity Discharge Attestations Time Spent in Discharge Care*: less than 30 min Status at Discharge: Cognitive status at discharge: cognitively intact , Behavioral status at discharge: can be uncooperative , Functional status at discharge: independent ambulation Overall status at discharge: patient is not back to baseline Quality Metrics Clinical Quality Measures During this hospital stay, did patient experience: None Coding Level of Care Code Acute Diesel Fleet Mechanic for Italo Feilciano Diagnoses COPD (chronic obstructive pulmonary disease) J44.1 COPD type: COPD with acute exacerbation
== END 2019-10-17 19:00 | disposition left against medical advice (07) ==
LOC: ER 07:41 → MEDSURG 08:24
PROVIDERS: Admitting Provider Internal Medicine; Emergency Provider Emergency Medicine; Visit Provider Internal Medicine
DX: J44.1 Chronic obstructive pulmonary disease with (acute) exacerbation (principal); G89.4 Chronic pain syndrome; F20.9 Schizophrenia, unspecified; J18.9 Pneumonia, unspecified organism; E27.8 Other specified disorders of adrenal gland; G47.33 Obstructive sleep apnea (adult) (pediatric); F17.210 Nicotine dependence, cigarettes, uncomplicated; Z85.118 Personal history of other malignant neoplasm of bronchus and lung
CPT/HCPCS: 12345; 36415; 36600; 71045; 71275; 80053; 81001; 82803; 83605; 83690; 83735; 84145; 84443; 84484; 85025; 85378; 93005; 94640; 94660; 96361; 96365; 96366; 96372; 96375; 96376; 99284; 99285; G0378; J1170; J1650; J1956; J2270; J2405; J7030; Q9967

== ENCOUNTER 2019-12-31 18:49 | Emergency (ER) | payer SELFPAY ==
[2019-12-31 18:50] VITALS: BP 128/89; PULSE 98; RESP 18; TEMP 36.8; O2SAT 96; BMI 22.4
--- NOTE | 2019-12-31 19:11 | ED_ITS ---
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 He has had no bleeding at this time and has full range of motion of his hand and no signs of tendon involvement. He states the pain is a 2 out of 10. He is not up-to-date on his tetanus Onset (ago): hour(s) Associated symptoms: Denies chills, fever(s), nausea or vomiting Review of Systems Const: Denies: fever(s), chills, body aches or change in appetite Eyes: Denies: blurry vision or eye discomfort ENMT: Denies: throat pain or dental pain Card: Denies: chest pain Resp: Denies: dyspnea GI: Denies: abdominal pain, nausea, vomiting or diarrhea : Denies: dysuria Musc: Denies: neck pain or back pain Skin/Breast: Denies: rash Neuro: Denies: headache(s) Psych: Denies: depression [place]/Lymph: Denies: easy bruising All/Imm: Denies: urticaria PFSH ED PFSH: Medical History Chronic back pain COPD (chronic obstructive pulmonary disease) -Noted bilateral pneumonitis on imaging -Oxygen dependent at baseline with a 2 L nasal cannula requirement -Was treated with IV steroids, empiric Levaquin, duonebs Lung cancer Obstructive sleep apnea Schizophrenia Surgical History H/O hernia repair Social History Smoking and tobacco status: current every day smoker Physical Exam Const: COMMON NORMALS: no acute distress, patient oriented x3 and healthy appearing HENMT: COMMON NORMALS: normocephalic and atraumatic HEAD & SCALP: normocephalic and atraumatic Eye: COMMON NORMALS: Equal, round and reactive pupils present and EOMs intact bilaterally PUPIL: Yes Equal, round and reactive pupils present Neck/C-Spine: COMMON NORMALS: full ROM and supple Chest: COMMONS NORMALS: normal inspection of the chest and normal palpation of entire chest wall Resp: COMMON NORMALS: normal respiratory effort, No retractions, No use of accessory muscles and clear to auscultation bilaterally AUSCULTATION: clear to auscultation bilaterally Cardio: COMMON NORMALS: regular rate, regular rhythm and No murmurs present (Cardio) RATE: regular rate RHYTHM: regular rhythm GI: COMMON NORMALS: Normal to inspection, nondistended, normoactive bowel sounds present, Soft to palpation, non-tender and no masses PALPATION: Yes Soft to palpation Extremity: COMMON NORMALS: normal to inspection and full ROM Neuro: COMMON NORMALS: patient oriented x3, moves all extremities and no focal motor deficits Psych: COMMON NORMALS: mental status grossly normal, Normal thought process present and cooperative THOUGHT PROCESS: Normal thought process present Skin: COMMON NORMALS: no rashes or lesions noted and no wounds NARRATIVE SKIN EXAM: 2 cm laceration to left forearm with no tendon involvement GENERAL SKIN EXAM: no rashes or lesions noted Procedures Laceration Laceration 1: Site: upper extremity Side (If applicable): left Size (cm): 2 Description: linear Depth: simple, single layer Local Anesthetic: lidocaine 1% Amount of anesthesia used (mL): 8 Pre-repair: wound explored and irrigated extensively Skin layer closed with: other (3 juana) Course Vital Signs: Vital signs: Vital Signs Temperature 98.2 F 12/31/19 18:50 Pulse Rate 98 12/31/19 18:50 Respiratory Rate 18 12/31/19 18:50 Blood Pressure 128/89 12/31/19 18:50 Pulse Oximetry 96 12/31/19 18:50 MDM - Wound/Laceration MDM Narrative: Medical decision making narrative: Patient presents here with laceration to his forearm. Patient was given a tetanus here and wound was thoroughly irrigated. 3 juana were placed. No signs of deep structure involvement of the laceration. Patient is return in 10 days for removal and is to watch for signs of infection. Discharge Plan Discharge Patient Disposition: Home Clinical Impression: Laceration Condition: Stable Prescriptions: New Keflex 500 mg capsule 500 mg PO Q6H 7 Days Qty: 28 RF: 0 Discharge Orders: Discharge Order (Routine); Ordered 12/31/19 Ordered By: Vince Bryant Discharge Diet: Advance as tolerated Discharge Activity: Resume usual activity Patient Instructions: Laceration (ED) Activity Restrictions/Additional Instructions: return to ED in 10 days for suture removal Coding Level of Care Code ED Office Machine Embossograph Operator for Italo Feliciano
[2019-12-31] MEDS: tetanus-diphtheria tox (adult) 0.5 mL SDV IM (19:17)
--- NOTE | 2019-12-31 19:24 | PC.NURSE ---
4 stables placed by ER physician. nurse dressing wound with sulfa pad and kerlex. distal pulses intact, cap refill greater than 3 seconds. education on cleaning and removal of juana given to patient.
--- NOTE | 2020-01-13 16:35 | PC.NURSE ---
WOUND WAS CLEAN AND DRY NO REDNESS NOTED. THREE BRIANA REMOVED FROM THE PTS LEFT FOREARM.
== END 2019-12-31 19:32 | disposition home or self-care (01) ==
PROVIDERS: Emergency Provider Emergency Medicine
DX: S51.812A Laceration without foreign body of left forearm, initial encounter (principal); W26.8XXA Contact with other sharp object(s), not elsewhere classified, initial encounter; J44.9 Chronic obstructive pulmonary disease, unspecified; Z85.118 Personal history of other malignant neoplasm of bronchus and lung; F17.210 Nicotine dependence, cigarettes, uncomplicated; Z23 Encounter for immunization
CPT/HCPCS: 12001; 12345; 90471; 90714; 99281; 99282

== ENCOUNTER 2022-02-14 18:30 | Emergency (ER) | payer MEDICARE, SELFPAY ==
[2022-02-14 18:47] VITALS: BP 93/57; PULSE 105; RESP 16; TEMP 37.7; O2SAT 94
--- NOTE | 2022-02-14 18:53 | XRR_ITS ---
PROCEDURE INFORMATION: Exam: XR Chest Exam date and time: 02/14/2022 6:57 PM Age: 67 years old Clinical indication: Cough and shortness of breath; Additional info: SOB, cough TECHNIQUE: Imaging protocol: Radiologic exam of the chest. Views: 1 view. COMPARISON: CR XR chest 1V portable [id number] 10/17/2019 1:48 AM FINDINGS: Lungs: Unremarkable. No consolidation. Pleural spaces: Unremarkable. No pleural effusion. No pneumothorax. Heart/Mediastinum: Unremarkable. No cardiomegaly. Bones/joints: Unremarkable. XR/XR chest 1V portable [id number] IMPRESSION: No acute findings.
[2022-02-14 21:21] VITALS: BP 110/71; PULSE 101; RESP 16; TEMP 37.7; O2SAT 94
--- NOTE | 2022-02-14 21:43 | W.ED.SOB ---
HPI - SOB/Dyspnea General: Chief Complaint: Shortness of Breath/Dyspnea Stated Complaint: SOB, [place] making it hard to breath Time Seen by Provider: 02/14/22 21:43 History of Present Illness: HPI Narrative: 67-year-old male patient comes in today with some complaints of shortness of breath and increased phlegm production over the last 2 to 3 days. Patient does have a history of COPD. Patient reports taking a COVID test and was negative this morning. Patient appears mildly unwell but not toxic. Respirations are even. Patient appears in no pain. Review of Systems Resp: Reports: productive cough; Denies: dyspnea [facility] ED PFSH: Medical History (Updated 02/14/22 @ 21:50 by JACKSON Lovelace) Chronic back pain COPD (chronic obstructive pulmonary disease) Lung cancer Obstructive sleep apnea Schizophrenia Surgical History H/O hernia repair Social History Smoking and tobacco status: current every day smoker Physical Exam Const: COMMON NORMALS: alert HENMT: COMMON NORMALS: normocephalic HEAD & SCALP: normocephalic Neck/C-Spine: COMMON NORMALS: no lymphadenopathy Resp: COMMON NORMALS: normal respiratory effort AUSCULTATION: diminished lung sounds (Bilateral bases) Cardio: COMMON NORMALS: regular rate and regular rhythm RATE: regular rate RHYTHM: regular rhythm GI: COMMON NORMALS: Soft to palpation and non-tender PALPATION: Yes Soft to palpation Extremity: COMMON NORMALS: no pedal edema Neuro: SENSORIUM/ORIENTATION: Yes alert Skin: COMMON NORMALS: no rashes or lesions noted GENERAL SKIN EXAM: no rashes or lesions noted Course Vital Signs: Vital signs: Vital Signs Temperature 99.9 F H 02/14/22 21:21 Pulse Rate 101 H 02/14/22 21:21 Respiratory Rate 16 02/14/22 21:21 Blood Pressure 110/71 02/14/22 21:21 Pulse Oximetry 94 02/14/22 21:21 Oxygen Delivery Me thod 02/14/22 21:21 MDM - SOB/Dyspnea Medical Decision Making Patient comes in today for complaints of some productive sputum with cough. On exam lungs have some decreased air movement in the bases. Skin is warm and dry. Abdomen soft nontender. Vital signs are normal except for a temperature of 99.9 and a pulse of 105. Differential diagnosis includes viral syndrome, exacerbation of COPD, pneumonia. Chest x-ray noted no pneumonia. Patient had a COVID test earlier today that was negative. Due to the patient's history of COPD we will go ahead and cover with antibiotic and treat for acute exacerbation of chronic obstructive pulmonary disease. Patient was given a dose of dexamethasone 10 mg. Along with 1 g of Rocephin. Patient will be followed with azithromycin and prednisone orally. Patient will continue with his aerosol treatments as prescribed. Patient stated understanding and agreed to plan. Lab Data Labs/Radiology: Radiology Impressions Chest X-Ray 02/14/22 18:53 IMPRESSION: No acute findings. Discharge Plan Discharge Patient Disposition: Home Clinical Impression: Acute exacerbation of chronic obstructive airways disease Condition: Stable Prescriptions: New prednisone 20 mg tablet 20 mg PO BID 7 Days Qty: 14 0RF azithromycin 250 mg tablet See Rx Instructions .ROUTE .COMPLEX Qty: 6 0RF Rx Instructions: For 250 mg dose pack: take 500 mg today (day 1), then 250 mg for 4 days (days 2-5) Discharge Orders: Discharge ED (Routine); Ordered 02/14/22 Ordered By: Keon Arreguin Discharge Diet: Usual diet Discharge Activity: Increase activity as tolerated Patient Instructions: COPD (Chronic Obstructive Pulmonary Disease) (ED) Activity Restrictions/Additional Instructions: Home and rest. Drink plenty of water with medication. Continue with inhalers as directed. Take azithromycin 250 mg 2 tablets tomorrow, and then 1 tablet daily for a total of 5 days. Use prednisone 20 mg 1 tablet twice a day for 7 days. Follow-up with primary care in 1 week for recheck. Return to ER for worsening symptoms such as increasing shortness of breath or new concerns. Coding Level of Care Code ED Facilities Operator for Italo Feliciano
[2022-02-14] MEDS: dexamethasone 10 mg/mL INJ IM (22:17)
[2022-02-14] MEDS: cefTRIAXone 1,000 MG in lidocaine 1% 2.1 ML 1000 MG IM (22:17)
[2022-02-14 22:18] VITALS: BP 110/71; PULSE 81; RESP 16; TEMP 37.7; O2SAT 95
== END 2022-02-14 22:19 | disposition home or self-care (01) ==
PROVIDERS: Emergency Provider Nurse Practitioner Family
DX: J44.1 Chronic obstructive pulmonary disease with (acute) exacerbation (principal)
CPT/HCPCS: 71045; 96372; 99284; J0696; J1100

== ENCOUNTER 2022-02-27 11:34 | Emergency (ER) | payer MEDICARE, SELFPAY ==
[2022-02-27 11:41] VITALS: BP 137/78; PULSE 70; RESP 22; TEMP 36.3; O2SAT 91; BMI 23.1
--- NOTE | 2022-02-27 11:42 | XR_ITS ---
WS: [id number] Exam: XR chest 1V portable [id number] Date/Time of Exam: 02/27/2022 11:46 AM Reason For Exam: dyspnea/cough Comparison 02/14/2022. Prominent right pulmonary hilum. The lungs are clear and fully expanded. No pleural effusions. Normal cardiomediastinal silhouette and regional bony elements. Monitoring leads superimpose the chest. XR/XR chest 1V portable [id number] IMPRESSION: 1. Prominent pulmonary hilum. This may be secondary to rotation of the chest an d portable technique however a mass is not excluded. A detailed PA and lateral chest x-ray would be recommended for further workup. 2. The chest is otherwise unremarkable.
--- NOTE | 2022-02-27 11:43 | ECG_ITS ---
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 Measurements Intervals [place] Rate: 57 P: 67 MO: 148 QRS: 70 QRSD: 96 T: 68 QT: 445 QTc: 436 Interpretive Statements SINUS BRADYCARDIA VOLTAGE CRITERIA FOR LVH [MEETS CRITERIA IN ONE OF: R(aVL), S(V1), R(V5), R(V5/V6)+S(V1)] Compared to ECG 10/17/2019 07:50:53 Left ventricular hypertrophy now present Sinus rhythm no longer present Electronically Signed On 02-27-2022 20:35:56 CDT by Gene Shane M.D. [id number] f
[2022-02-27 11:47] VITALS: BP 137/78; PULSE 58; O2SAT 91
[2022-02-27 11:53] LABS: Basophils % 0.3 %; Eosinophils # 0.2 10^3/uL (0.0-0.8); Eosinophils % 1.8 %; Hematocrit 39.6 % (42.0-52.0); Hemoglobin 12.5 g/dL (11.7-16.6); Lymphocytes # 2.3 10^3/uL (0.8-4.8); Lymphocytes % 24.5 %; Mean Corpuscular HGB Conc 31.6 g/dL (30.0-36.0); Mean Corpuscular Hemoglobin 29.9 pg (28.0-34.0); Mean Corpuscular Volume 94.7 fl (80-94); Mean Platelet Volume 10.1 fL (7.4-10.4); Monocytes # 0.8 10^3/uL (0.2-0.9); Monocytes % 8.3 %; Neutrophils # 6.21 10^3/uL (1.8-7.7); Neutrophils % 64.8 %; Nucleated Red Blood Cells % 0 %; Platelet Count 323 10^3/cmm (130-400); Red Blood Count 4.18 10^6/uL (4.1-5.3); Red Cell Distribution Width 13.4 % (12.1-15.1); White Blood Count 9.6 10^3/uL (4.0-10.0)
--- NOTE | 2022-02-27 11:54 | PC.NURSE ---
PT PLACED ON CONTINUOUS NIBP, SPO2, AND CM
--- NOTE | 2022-02-27 12:11 | W.ED.SOB ---
HPI - SOB/Dyspnea General: Chief Complaint: Shortness of Breath/Dyspnea Stated Complaint: sob Time Seen by Provider: 02/27/22 11:39 Source: patient Mode of arrival: ambulatory History of Present Illness: HPI Narrative: 67-year-old male presents emergency room with complaint of shortness of breath. He is brought in by EMS on arrival he is feeling much better he received a DuoNeb treatment in route. His plain albuterol at home. He was hospitalized earlier this month with a COPD exacerbation and completed the course antibiotics and steroids for that and had been doing better until this morning. Denies any fever sweats chills or productive cough. no chest pain he is not on oxygen on arrival. He normally does not use oxygen at home. His sats are in the mid to low 90s consistently on room air. MD elicited complaint: shortness of breath and cough Pertinent past history: COPD Onset (ago): hour(s) Context: recent illness Timing: improved Severity: moderate Exacerbating factors: nothing Relieving factors: nothing Known history of: COPD Associated symptoms: Deny abdominal pain, chest congestion, chest pain, cough, diaphoresis, dizziness, extremity pain, fever(s), hemoptysis, lightheadedness, myalgias, nausea, orthopnea, palpitations, paresthesias, polydipsia, polyuria, rash, sense of impending doom, syncope or vomiting Treatment prior to arrival: none Review of Systems Const: Denies: fever(s), chills, fatigue, malaise or diaphoresis ENMT: Denies: throat pain, ear or mastoid pain, nasal discharge or nasal congestion Card: Denies: chest pain, palpitations, lightheadedness, syncope or orthopnea Resp: Reports: dyspnea; Denies: productive cough, non-productive cough, hemoptysis or chest congestion GI: Denies: abdominal pain, nausea or vomiting : Denies: flank pain, difficulty urinating, dysuria, urinary frequency or urinary urgency Musc: Denies: extremity pain Skin/Breast: Denies: rash or pruritus Neuro: Denies: dizziness Endo: Denies: polyuria or polydipsia PFS ED PFSH: Medical History Chronic back pain COPD (chronic obstructive pulmonary disease) Lung cancer Obstructive sleep apnea Schizophrenia Surgical History H/O hernia repair Social History Smoking and tobacco status: current every day smoker Physical Exam Const: GENERAL APPEARANCE: cooperative and comfortable ORIENTATION/CONSCIOUSNESS: Yes awake, Yes oriented to person, Yes oriented to place and Yes oriented to time HENMT: COMMON NORMALS: normocephalic, atraumatic and hearing grossly normal bilaterally HEAD & SCALP: normocephalic and atraumatic Resp: COMMON NORMALS: normal respiratory effort, No retractions, No use of accessory muscles and clear to auscultation bilaterally AUSCULTATION: clear to auscultation bilaterally Cardio: COMMON NORMALS: regular rate, regular rhythm and No murmurs present (Cardio) RATE: regular rate RHYTHM: regular rhythm GI: COMMON NORMALS: Soft to palpation and No hepatosplenomegaly present AUSCULTATION: Yes normoactive bowel sounds PALPATION: Yes Soft to palpation, No Tenderness to palpation present (GI), No Guarding due to palpation present (GI) and Yes No hepatosplenomegaly present Extremity: COMMON NORMALS: normal to inspection, capillary refill normal, no clubbing, cyanosis or edema, no calf tenderness and no pedal edema Neuro: SENSORIUM/ORIENTATION: Yes oriented to person, Yes oriented to place and Yes oriented to time Skin: COMMON NORMALS: no rashes or lesions noted GENERAL SKIN EXAM: no rashes or lesions noted Course Vital Signs: Vital signs: Vital Signs Temperature 97.3 F L 02/27/22 11:41 Pulse Rate 65 02/27/22 13:24 Respiratory Rate 18 02/27/22 13:00 Blood Pressure 143/73 02/27/22 13:24 Pulse Oximetry 100 02/27/22 13:24 Oxygen Delivery Me thod 02/27/22 13:00 MDM - SOB/Dyspnea Medical Decision Making Acute exacerbation COPD patient is feeling better. Labs and chest x-ray reviewed. Discharge patient home with Spiriva steroid taper aggressive use of albuterol follow-up with primary care Medical Records I reviewed the patient's medical records. Lab Data I reviewed the patient's lab results. : 02/27/22 11:50 02/27/22 11:50 Labs/Radiology: Radiology Impressions Chest X-Ray 02/27/22 11:42 IMPRESSION: 1. Prominent pulmonary hilum. This may be secondary to rotation of the chest and portable technique however a mass is not excluded. A detailed PA and lateral chest x-ray would be recommended for further workup. 2. The chest is otherwise unremarkable. Laboratory Results WBC 9.6 10^3/uL (4.0-10.0) 02/27/22 11:50 RBC 4.18 10^6/uL (4.1-5.3) 02/27/22 11:50 Hgb 12.5 g/dL (11.7-16.6) 02/27/22 11:50 Hct 39.6 % (42.0-52.0) L 02/27/22 11:50 MCV 94.7 fl (80-94) H 02/27/22 11:50 MCH 29.9 pg (28.0-34.0) 02/27/22 11:50 MCHC 31.6 g/dL (30.0-36.0) 02/27/22 11:50 RDW 13.4 % (12.1-15.1) 02/27/22 11:50 Plt Count 323 10^3/cmm (130-400) 02/27/22 11:50 MPV 10.1 fL (7.4-10.4) 02/27/22 11:50 Neut % (Auto) 64.8 % 02/27/22 11:50 Lymph % (Auto) 24.5 % 02/27/22 11:50 [place] % (Auto) 8.3 % 02/27/22 11:50 Eos % (Auto) 1.8 % 02/27/22 11:50 Baso % (Auto) 0.3 % 02/27/22 11:50 Neut # (Auto) 6.21 10^3/uL (1.8-7.7) 02/27/22 11:50 Lymph # (Auto) 2.3 10^3/uL (0.8-4.8) 02/27/22 11:50 [place] # (Auto) 0.8 10^3/uL (0.2-0.9) 02/27/22 11:50 Eos # (Auto) 0.2 10^3/uL (0.0-0.8) 02/27/22 11:50 Baso # (Auto) 0.0 10^3/uL (0.0-0.1) 02/27/22 11:50 Nucleated RBC % (auto) 0 % 02/27/22 11:50 Nucleated RBCs # 0.0 /100WBC 02/27/22 11:50 Sodium 135 mmol/L (136-145) L 02/27/22 11:50 Potassium 3.9 mmol/L (3.5-5.1) 02/27/22 11:50 Chloride 100 mmol/L (98-107) 02/27/22 11:50 Carbon Dioxide 27 mmol/L (22-29) 02/27/22 11:50 Anion Gap 11.9 (5-19) 02/27/22 11:50 BUN 16 mg/dL (8-23) 02/27/22 11:50 Creatinine 0.6 mg/dL (0.7-1.2) L 02/27/22 11:50 GFR Calculation 135.2 mL/min (90-130) H 02/27/22 11:50 Glucose 126 mg/dL (65-115) H 02/27/22 11:50 Calculated Osmolality 283 mOsm/kg (285-295) L 02/27/22 11:50 Calcium 9.0 mg/dL (8.5-10.5) 02/27/22 11:50 Total Bilirubin 0.2 mg/dL (0.15-1.2) 02/27/22 11:50 AST 15 U/L (0-40) 02/27/22 11:50 ALT 15 U/L (0-41) 02/27/22 11:50 Alkaline Phosphatase 80 U/L (40-130) 02/27/22 11:50 Troponin T Baseline 8 ng/L (0-15) 02/27/22 11:50 Total Protein 6.3 g/dL (6.6-8.7) L 02/27/22 11:50 Albumin 3.1 g/dL (3.5-5.2) L 02/27/22 11:50 Globulin 3.2 g/dL (1.3-4.6) 02/27/22 11:50 Discharge Plan Discharge Patient Disposition: Home Clinical Impression: Acute exacerbation of chronic obstructive airways disease Condition: Stable Prescriptions: No Action albuterol sulfate 0.63 mg/3 mL Solution For Nebulization 0.63 mg INHALATION Q4H PRN (Reason: Shortness Of Breath Or Wheezing) sildenafil 100 mg Tablet 100 mg PO DAILY PRN (Reason: Erectile Dysfunction) Rx Instructions: administer 30 minutes to 4 hours before activity albuterol sulfate 90 mcg/actuation Hfa Aerosol Inhaler 2 puff INHALATION QID PRN (Reason: Shortness Of Breath Or Wheezing) Spiriva with HandiHaler 18 mcg Capsule, W/Inhalation Device 1 cap INHALATION DAILY Rx Instructions: puncture 1 cap using device; one dose = 2 inhalations Discharge Orders: Discharge ED (Routine); Ordered 02/27/22 Ordered By: Grant Le Discharge Diet: Usual diet Discharge Activity: Resume usual activity Patient Instructions: Opioid Safety, Pain Management Activity Restrictions/Additional Instructions: Use albuterol and nebulizers at home as needed. Continue Spiriva, p.o. steroid taper. Follow-up with your doctor in 1 week if not improving Coding Level of Care Code ED Route Sales Driver for Italo Fwd Exam Detailed
[2022-02-27 12:21] LABS: Alanine Aminotransferase 15 U/L (0-41); Albumin Level 3.1 g/dL (3.5-5.2); Alkaline Phosphatase 80 U/L (40-130); Anion Gap 11.9 (5-19); Aspartate Amino Transferase 15 U/L (0-40); Blood Urea Nitrogen 16 mg/dL (8-23); Carbon Dioxide 27 mmol/L (22-29); Chloride 100 mmol/L (98-107); Globulin 3.2 g/dL (1.3-4.6); Glomerular Filtration Rate 135.2 mL/min (90-130); Glucose 126 mg/dL (65-115); Osmolality Calculated 283 mOsm/kg (285-295); Potassium 3.9 mmol/L (3.5-5.1); Sodium 135 mmol/L (136-145); Total Bilirubin 0.2 mg/dL (0.15-1.2); Total Protein 6.3 g/dL (6.6-8.7)
[2022-02-27 12:24] LABS: Troponin(5th) Baseline 8 ng/L (0-15)
[2022-02-27 13:00] VITALS: BP 143/76; PULSE 57; RESP 18; O2SAT 95
[2022-02-27 13:24] VITALS: BP 143/73; PULSE 65; O2SAT 100
== END 2022-02-27 13:26 | disposition home or self-care (01) ==
PROVIDERS: Emergency Provider Family Medicine
DX: J44.1 Chronic obstructive pulmonary disease with (acute) exacerbation (principal)
CPT/HCPCS: 71045; 80053; 84484; 85025; 93005; 96374; 99285; J2930

== ENCOUNTER 2022-06-26 20:36 | Emergency (ER) | payer MEDICARE, MEDICAID, SELFPAY ==
--- NOTE | 2022-06-26 20:38 | XRR_ITS ---
PROCEDURE INFORMATION: Exam: XR Chest Exam date and time: 06/26/2022 8:43 PM Age: 67 years old Clinical indication: Pain; Chest pressure; Additional info: Cp today TECHNIQUE: Imaging protocol: Radiologic exam of the chest. Views: 1 view. COMPARISON: CR XR chest 1V portable [id number] 02/27/2022 11:52 AM FINDINGS: Lungs: Unremarkable. No consolidation. Pleural spaces: Unremarkable. No pleural effusion. No pneumothorax. Heart/Mediastinum: Unremarkable. No cardiomegaly. Bones/joints: Unremarkable. XR/XR chest 1V portable [id number] IMPRESSION: No acute findings.
[2022-06-26 20:41] VITALS: BP 137/90; PULSE 79; RESP 18; TEMP 36.8; O2SAT 93; BMI 21.2
--- NOTE | 2022-06-26 20:51 | ECG_ITS ---
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 Measurements Intervals [place] Rate: 62 P: 73 IA: 153 QRS: 78 QRSD: 86 T: 77 QT: 404 QTc: 412 Interpretive Statements SINUS RHYTHM VOLTAGE CRITERIA FOR LVH [MEETS CRITERIA IN ONE OF: R(aVL), S(V1), R(V5), R(V5/V6)+S(V1)] Compared to ECG 02/27/2022 11:43:10 Sinus bradycardia no longer present Electronically Signed On 06-26-2022 23:40:05 MAT GAUGER by Ivory Zarate M.D. [email or web address]/store/OM/[id number]
[2022-06-26 20:52] VITALS: RESP 18; O2SAT 97
[2022-06-26] MEDS: morphine 4 mg/mL SDV 1 mL IVP (20:52)
[2022-06-26] MEDS: ondansetron 2 mg/ML SDV 2 mL 4 MG IVP (20:52)
--- NOTE | 2022-06-26 21:00 | ED_ITS ---
HPI - Chest Pain General: Chief Complaint: Chest Pain Stated Complaint: CP Time Seen by Provider: 06/26/22 20:38 Source: patient and EMS Mode of arrival: EMS Limitations: no limitations History of Present Illness: 67-year-old male has a history of COPD is a longtime smoker states been having a sharp chest pain throughout the day. He denies any radiation of his pain he was given nitro aspirin in route denies any improvement he states he has shortness of breath all the time no worsening he wears oxygen as needed at home he is not hypoxic here. He denies any cough or fever. Associated symptoms: Deny abdominal pain, dyspnea, fever(s), nausea or vomiting Review of Systems Const: Denies: fever(s), chills, body aches or change in appetite Eyes: Denies: blurry vision or eye discomfort ENMT: Denies: throat pain or dental pain Card: Reports: chest pain Resp: Denies: dyspnea GI: Denies: abdominal pain, nausea, vomiting or diarrhea : Denies: dysuria Musc: Denies: neck pain or back pain Skin/Breast: Denies: rash Neuro: Denies: headache(s) Psych: Denies: depression Oliverio/Lymph: Denies: easy bruising All/Imm: Denies: urticaria PFSH ED PFSH: Medical History (Updated 06/26/22 @ 23:41 by Vince Bryant MD) Chronic back pain COPD (chronic obstructive pulmonary disease) Lung cancer Obstructive sleep apnea Schizophrenia Surgical History H/O hernia repair Social History Smoking and tobacco status: current every day smoker Physical Exam Const: COMMON NORMALS: no acute distress, patient oriented x3 and healthy appearing HENMT: COMMON NORMALS: normocephalic and atraumatic HEAD & SCALP: normocephalic and atraumatic Eye: COMMON NORMALS: Equal, round and reactive pupils present and EOMs intact bilaterally PUPIL: Yes Equal, round and reactive pupils present Neck/C-Spine: COMMON NORMALS: full ROM and supple Chest: COMMONS NORMALS: normal inspection of the chest and normal palpation of entire chest wall Resp: COMMON NORMALS: normal respiratory effort, No retractions, No use of accessory muscles and clear to auscultation bilaterally AUSCULTATION: clear t o auscultation bilaterally Cardio: COMMON NORMALS: regular rate, regular rhythm and No murmurs present (Cardio) RATE: regular rate RHYTHM: regular rhythm GI: COMMON NORMALS: Normal to inspection, nondistended, normoactive bowel sounds present, Soft to palpation, non-tender and no masses PALPATION: Yes Soft to palpation Extremity: COMMON NORMALS: normal to inspection and full ROM Neuro: COMMON NORMALS: patient oriented x3, moves all extremities and no focal motor deficits Psych: COMMON NORMALS: mental status grossly normal, Normal thought process present and cooperative THOUGHT PROCESS: Normal thought process present Skin: COMMON NORMALS: no rashes or lesions noted and no wounds GENERAL SKIN EXAM: no rashes or lesions noted Course Vital Signs: Vital signs: Vital Signs Temperature 98.2 F 06/26/22 20:41 Pulse Rate 81 06/26/22 21:08 Respiratory Rate 15 06/26/22 21:08 Blood Pressure 127/87 06/26/22 21:08 Pulse Oximetry 96 06/26/22 21:08 Oxygen Delivery Me thod 06/26/22 20:41 MDM - Chest Pain Medical Decision Making Patient presents here with chest pains atypical in nature his troponins here are normal x-ray is normal as well he feels improved here he is stable for discharge he is to follow-up with PCP and return if worsening. Lab Data 06/26/22 21:27 06/26/22 21:27 Radiology Impressions Chest X-Ray 06/26/22 20:38 IMPRESSION: No acute findings. Laboratory Results WBC 5.7 10^3/uL (4.0-10.0) 06/26/22 21: RBC 4.88 10^6/uL (4.1-5.3) 06/26/22 21: Hgb 14.1 g/dL (11.7-16.6) 06/26/22 21: Hct 45.0 % (42.0-52.0) 06/26/22 21: MCV 92.2 fl (80-94) 06/26/22 21: MCH 28.9 pg (28.0-34.0) 06/26/22 21: MCHC 31.3 g/dL (30.0-36.0) 06/26/22: RDW 13.2 % (12.1-15.1) 06/26/22: Plt Count 271 10^3/cmm (130-400) 06/26/22: MPV 9.9 fL (7.4-10.4) 06/26/22: Neut % (Auto) 47.7 % 06/26/22: Lymph % (Auto) 37.1 % 06/26/22: [place] % (Auto) 11.9 % 06/26/22: Eos % (Auto) 2.6 % 06/26/22: Baso % (Auto) 0.5 % 06/26/22: Neut # (Auto) 2.73 10^3/uL (1.8-7.7) 06/26/22: Lymph # (Auto) 2.1 10^3/uL (0.8-4.8) 06/26/22: [place] # (Auto) 0.7 10^3/uL (0.2-0.9) 06/26/22: Eos # (Auto) 0.2 10^3/uL (0.0-0.8) 06/26/22: Baso # (Auto) 0.0 10^3/uL (0.0-0.1) 06/26/22: Nucleated RBC % (auto) 0 % 06/26/22: Nucleated RBCs # 0.0 /100WBC 06/26/22: PT 13.00 SECONDS (12.1-14.9) 06/26/22: INR 0.95 (0.8-1.2) 06/26/22 21: Sodium 138 mmol/L (136-145) 06/26/22: Potassium 4.6 mmol/L (3.5-5.1) 06/26/22: Chloride 100 mmol/L (98-107) 06/26/22: Carbon Dioxide 30 mmol/L (22-29) H 06/26/22: Anion Gap 12.6 (5-19) 06/26/22: BUN 14 mg/dL (8-23) 06/26/22 21: Creatinine 0.8 mg/dL (0.7-1.2) 06/26/22 21: GFR Calculation 97.0 mL/min (90-130) 06/26/22 21: Glucose 102 mg/dL (65-115) 06/26/22 21: Calculated Osmolality 287 mOsm/kg (285-295) 06/26/22 21: Calcium 9.4 mg/dL (8.5-10.5) 06/26/22: Total Bilirubin 0.3 mg/dL (0.15-1.2) 06/26/22 21: AST 13 U/L (0-40) 06/26/22: ALT 9 U/L (0-41) 06/26/22: Alkaline Phosphatase 83 U/L (40-130) 06/26/22 21: Troponin T Baseline 9 ng/L (0-15) 06/26/22 21: Troponin T 120 Minute 10.15 ng/L (0-15) 06/26/22 22: Delta Troponin T 1.15 ABS# (0-10) 06/26/22 22: Total Protein 6.8 g/dL (6.6-8.7) 06/26/22: Albumin 4.2 g/dL (3.5-5.2) 06/26/22: Globulin 2.6 g/dL (1.3-4.6) 06/26/22 21: EKG Data EKG 1: I personally reviewed and interpreted this EKG as follows: EKG interpretation date: 06/26/22 EKG interpretation time: 20:51 Interpretation: nsr hr [address] or t wave abnormalities qrs 86 qtc 410 Discharge Plan Discharge Patient Disposition: Home Clinical Impression: Chest pain Condition: Stable Prescriptions: New Naprosyn 500 mg tablet 500 mg PO BID PRN (Reason: pain) Qty: 20 0RF No Action albuterol sulfate 0.63 mg/3 mL Solution For Nebulization 0.63 mg INHALATION Q4H PRN (Reason: Shortness Of Breath Or Wheezing) sildenafil 100 mg Tablet 100 mg PO DAILY PRN (Reason: Erectile Dysfunction) Rx Instructions: administer 30 minutes to 4 hours before activity albuterol sulfate 90 mcg/actuation Hfa Aerosol Inhaler 2 puff INHALATION QID PRN (Reason: Shortness Of Breath Or Wheezing) Spiriva with HandiHaler 18 mcg Capsule, W/Inhalation Device 1 cap INHALATION DAILY Rx Instructions: puncture 1 cap using device; one dose = 2 inhalations Discharge Orders: Discharge ED (Routine); Ordered 06/26/22 Ordered By: Vince Bryant Discharge Diet: Advance as tolerated Discharge Activity: Resume usual activity Patient Instructions: Chest Pain (ED) Coding Level of Care Code ED Newscast Director for Chg Fwd Exam Comprehensive
[2022-06-26 21:08] VITALS: BP 127/87; PULSE 81; RESP 15; O2SAT 96
[2022-06-26 21:36] LABS: Basophils % 0.5 %; Eosinophils # 0.2 10^3/uL (0.0-0.8); Eosinophils % 2.6 %; Hemoglobin 14.1 g/dL (11.7-16.6); Lymphocytes # 2.1 10^3/uL (0.8-4.8); Lymphocytes % 37.1 %; Mean Corpuscular HGB Conc 31.3 g/dL (30.0-36.0); Mean Corpuscular Hemoglobin 28.9 pg (28.0-34.0); Mean Corpuscular Volume 92.2 fl (80-94); Mean Platelet Volume 9.9 fL (7.4-10.4); Monocytes # 0.7 10^3/uL (0.2-0.9); Monocytes % 11.9 %; Neutrophils # 2.73 10^3/uL (1.8-7.7); Neutrophils % 47.7 %; Nucleated Red Blood Cells % 0 %; Platelet Count 271 10^3/cmm (130-400); Red Blood Count 4.88 10^6/uL (4.1-5.3); Red Cell Distribution Width 13.2 % (12.1-15.1); White Blood Count 5.7 10^3/uL (4.0-10.0)
[2022-06-26 21:49] LABS: INR 0.95 (0.8-1.2)
[2022-06-26 22:00] LABS: Troponin(5th) Baseline 9 ng/L (0-15)
[2022-06-26 22:39] LABS: Alanine Aminotransferase 9 U/L (0-41); Albumin Level 4.2 g/dL (3.5-5.2); Alkaline Phosphatase 83 U/L (40-130); Anion Gap 12.6 (5-19); Aspartate Amino Transferase 13 U/L (0-40); Blood Urea Nitrogen 14 mg/dL (8-23); Calcium 9.4 mg/dL (8.5-10.5); Carbon Dioxide 30 mmol/L (22-29); Chloride 100 mmol/L (98-107); Globulin 2.6 g/dL (1.3-4.6); Glucose 102 mg/dL (65-115); Osmolality Calculated 287 mOsm/kg (285-295); Potassium 4.6 mmol/L (3.5-5.1); Sodium 138 mmol/L (136-145); Total Bilirubin 0.3 mg/dL (0.15-1.2); Total Protein 6.8 g/dL (6.6-8.7)
--- NOTE | 2022-06-26 22:39 | ECG_ITS ---
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 Measurements Intervals [place] Rate: 72 P: 78 SC: 144 QRS: 75 QRSD: 93 T: 72 QT: 380 QTc: 417 Interpretive Statements SINUS RHYTHM VOLTAGE CRITERIA FOR LVH [MEETS CRITERIA IN ONE OF: R(aVL), S(V1), R(V5), R(V5/V6)+S(V1)] Compared to ECG 06/26/2022 20:51:24 No significant changes Electronically Signed On 06-26-2022 23:47:52 ROLL SCALE WORKER by Ivory Zarate M.D. [email or web address]/store/[id number]
[2022-06-26 22:55] LABS: Troponin 5 2HR 10.15 ng/L (0-15)
[2022-06-26 23:35] LABS: Troponin 5 2HR Delta 1.15 ABS# (0-10)
--- NOTE | 2022-06-27 10:46 | DCPLANNER ---
airport operations duty manager had message to speak with patient about getting established with a primary care physician. airport operations duty manager called phone number [phone] - unable to speak with patient at this time, a voicemail was left for patient to return gearcase assembler phone call.
== END 2022-06-27 00:06 | disposition home or self-care (01) ==
PROVIDERS: Emergency Provider Emergency Medicine
DX: R07.9 Chest pain, unspecified (principal); J44.9 Chronic obstructive pulmonary disease, unspecified; Z85.118 Personal history of other malignant neoplasm of bronchus and lung; F17.210 Nicotine dependence, cigarettes, uncomplicated
CPT/HCPCS: 36415; 71045; 80053; 84484; 85025; 85610; 93005; 96374; 96375; 99285; J2270; J2405

== ENCOUNTER 2022-12-18 01:26 | Emergency (ER) | payer MEDICARE, MEDICAID, SELFPAY ==
[2022-12-18 01:30] VITALS: BP 157/90; PULSE 93; RESP 18; TEMP 36.4; O2SAT 97; BMI 22.4
--- NOTE | 2022-12-18 01:36 | ECG_ITS ---
[facility] Test Date: 2022-12-18 Pat Name: Mario Schmitt Department: Room: Gender: Male Consumer Science Teacher: : 1955 Requested By: Vince Bryant Order Number: [id number] David MD: Ivory Zarate M.D. Measurements Intervals [place] Rate: 87 P: 74 [place]: 145 QRS: 79 QRSD: 79 T: 73 QT: 344 QTc: 415 Interpretive Statements SINUS RHYTHM WITH MARKED SINUS ARRHYTHMIA VOLTAGE CRITERIA FOR LVH [MEETS CRITERIA IN ONE OF: R(aVL), S(V1), R(V5), R(V5/V6)+S(V1)] Compared to ECG 06/26/2022 22:23:20 No significant changes Electronically Signed On 12-18-2022 12:25:50 CDT by Ivory Zarate M.D. [email or web address]/[id number]
[2022-12-18 01:38] VITALS: BP 157/90; PULSE 85; RESP 17; O2SAT 96
[2022-12-18] MEDS: ketorolac 30 mg/mL INJ 15 MG IVP (01:52)
--- NOTE | 2022-12-18 01:53 | W.ED.ARRPALP ---
HPI - Arrhythmia/Palpitations General: Chief Complaint: Arrhythmia/Palpitations Stated Complaint: Palpitations Time Seen by Provider: 12/18/22 01:27 Source: patient and EMS Mode of arrival: EMS Limitations: no limitations History of Present Illness: 67-year-old male states he is watching his pulse and then his arm tonight and he thought that his heart stopped beating. He denies have any chest pain denies any shortness of breath he states he does not have any feelings of irregular heartbeats. He states he has had a mild headache that is a 3 out of 10 denies any fevers or cough Associated symptoms: Deny nausea or vomiting Review of Systems Const: Denies: fever(s), chills, body aches or change in appetite ENMT: Denies: throat pain or dental pain Card: Denies: chest pain Resp: Denies: dyspnea GI: Denies: abdominal pain, nausea, vomiting or diarrhea Musc: Denies: neck pain or back pain Skin/Breast: Denies: rash Neuro: Reports: headache(s) PFSH ED PFSH: Medical History (Updated 12/18/22 @ 02:25 by Vince Bryant MD) Chronic back pain COPD (chronic obstructive pulmonary disease) Lung cancer Obstructive sleep apnea Schizophrenia Surgical History H/O hernia repair Social History Smoking and tobacco status: current every day smoker Physical Exam Const: COMMON NORMALS: no acute distress, patient oriented x3 and healthy appearing HENMT: COMMON NORMALS: normocephalic and atraumatic HEAD & SCALP: normocephalic and atraumatic Eye: COMMON NORMALS: Equal, round and reactive pupils present and EOMs intact bilaterally PUPIL: Yes Equal, round and reactive pupils present Neck/C-Spine: COMMON NORMALS: full ROM and supple Chest: COMMONS NORMALS: normal inspection of the chest and normal palpation of entire chest wall Resp: COMMON NORMALS: normal respiratory effort, No retractions, No use of accessory muscles and clear to auscultation bilaterally AUSCULTATION: clear to auscultation bilaterally Cardio: COMMON NORMALS: regular rate, regular rhythm and No murmurs present (Cardio) RATE: regular rate RHYTHM: regular rhythm GI: COMMON NORMALS: Normal to inspection, nondistended, normoactive bowel sounds present, Soft to palpation, non-tender and no masses PALPATION: Yes Soft to palpation Extremity: COMMON NORMALS: normal to inspection and full ROM Neuro: COMMON NORMALS: patient oriented x3, moves all extremities and no focal motor deficits Psych: COMMON NORMALS: mental status grossly normal, Normal thought process present and cooperative THOUGHT PROCESS: Normal thought process present Skin: COMMON NORMALS: no rashes or lesions noted and no wounds GENERAL SKIN EXAM: no rashes or lesions noted Course Vital Signs: Vital signs: Vital Signs Temperature 97.6 F 12/18/22 01:30 Pulse Rate 88 12/18/22 02:36 Respiratory Rate 18 12/18/22 02:36 Blood Pressure 153/86 12/18/22 02:36 Pulse Oximetry 96 12/18/22 02:36 Oxygen Delivery Me thod Room Air 12/18/22 02:32 MDM - Arrhythmia/Palpitations Medical Decision Making Patient presented here like he had an arrhythmia as he is looking his pulse in his arm he has had normal sinus rhythm here and a mild headache and since resolved blood works normal he is stable for discharge she is to follow-up with PCP and return if worsening Lab Data I reviewed the patient's lab results. 12/18/22 01:55 12/18/22 01:55 Laboratory Results WBC 9.0 10^3/uL (4.0-10.0) 12/18/22 01:55 RBC 4.55 10^6/uL (4.1-5.3) 12/18/22 01:55 Hgb 13.7 g/dL (11.7-16.6) 12/18/22 01:55 Hct 42.5 % (42.0-52.0) 12/18/22 01:55 MCV 93.4 fl (80-94) 12/18/22 01:55 MCH 30.1 pg (28.0-34.0) 12/18/22 01:55 MCHC 32.2 g/dL (30.0-36.0) 12/18/22 01:55 RDW 13.2 % (12.1-15.1) 12/18/22 01:55 Plt Count 270 10^3/cmm (130-400) 12/18/22 01:55 MPV 10.5 fL (7.4-10.4) H 12/18/22 01:55 Neut % (Auto) 74.9 % 12/18/22 01:55 Lymph % (Auto) 15.5 % 12/18/22 01:55 [place] % (Auto) 7.9 % 12/18/22 01:55 Eos % (Auto) 1.2 % 12/18/22 01:55 Baso % (Auto) 0.3 % 12/18/22 01:55 Neut # (Auto) 6.76 10^3/uL (1.8-7.7) 12/18/22 01:55 Lymph # (Auto) 1.4 10^3/uL (0.8-4.8) 12/18/22 01:55 [place] # (Auto) 0.7 10^3/uL (0.2-0.9) 12/18/22 01:55 Eos # (Auto) 0.1 10^3/uL (0.0-0.8) 12/18/22 01:55 Baso # (Auto) 0.0 10^3/uL (0.0-0.1) 12/18/22 01:55 Nucleated RBC % (auto) 0 % 12/18/22 01:55 Nucleated RBCs # 0.0 /100WBC 12/18/22 01:55 Sodium 141 mmol/L (136-145) 12/18/22 01:55 Potassium 3.6 mmol/L (3.5-5.1) 12/18/22 01:55 Chloride 103 mmol/L (98-107) 12/18/22 01:55 Carbon Dioxide 27 mmol/L (22-29) 12/18/22 01:55 Anion Gap 14.6 (5-19) 12/18/22 01:55 BUN 19 mg/dL (8-23) 12/18/22 01:55 Creatinine 0.8 mg/dL (0.7-1.2) 12/18/22 01:55 GFR Calculation 97.0 mL/min (90-130) 12/18/22 01:55 Glucose 98 mg/dL (65-115) 12/18/22 01:55 Calculated Osmolality 294 mOsm/kg (285-295) 12/18/22 01:55 Calcium 9.2 mg/dL (8.5-10.5) 12/18/22 01:55 Total Bilirubin 0.2 mg/dL (0.15-1.2) 12/18/22 01:55 AST 14 U/L (0-40) 12/18/22 01:55 ALT 14 U/L (0-41) 12/18/22 01:55 Alkaline Phosphatase 84 U/L (40-130) 12/18/22 01:55 Total Protein 6.6 g/dL (6.6-8.7) 12/18/22 01:55 Albumin 3.9 g/dL (3.5-5.2) 12/18/22 01:55 Globulin 2.7 g/dL (1.3-4.6) 12/18/22 01:55 EKG Data EKG 1: I personally reviewed and interpreted this EKG as follows: EKG interpretation date: 12/18/22 EKG interpretation time: 01:36 Interpretation: nsr hr [address] or t wave abnormalities qrs 79 qtc 389 Discharge Plan Discharge Patient Disposition: Home Clinical Impression: Headache Condition: Stable Discharge Orders: Discharge ED (Routine); Ordered 12/18/22 Ordered By: Vince Bryant Discharge Diet: Advance as tolerated Discharge Activity: Resume usual activity Patient Instructions: General Headache (ED) Coding Level of Care Code ED Principal Statistical Scientist for Italo Feliciano
[2022-12-18 02:00] LABS: Basophils % 0.3 %; Eosinophils # 0.1 10^3/uL (0.0-0.8); Eosinophils % 1.2 %; Hematocrit 42.5 % (42.0-52.0); Hemoglobin 13.7 g/dL (11.7-16.6); Lymphocytes # 1.4 10^3/uL (0.8-4.8); Lymphocytes % 15.5 %; Mean Corpuscular HGB Conc 32.2 g/dL (30.0-36.0); Mean Corpuscular Hemoglobin 30.1 pg (28.0-34.0); Mean Corpuscular Volume 93.4 fl (80-94); Mean Platelet Volume 10.5 fL (7.4-10.4); Monocytes # 0.7 10^3/uL (0.2-0.9); Monocytes % 7.9 %; Neutrophils # 6.76 10^3/uL (1.8-7.7); Neutrophils % 74.9 %; Nucleated Red Blood Cells % 0 %; Platelet Count 270 10^3/cmm (130-400); Red Blood Count 4.55 10^6/uL (4.1-5.3); Red Cell Distribution Width 13.2 % (12.1-15.1)
[2022-12-18 02:22] LABS: Alanine Aminotransferase 14 U/L (0-41); Albumin Level 3.9 g/dL (3.5-5.2); Alkaline Phosphatase 84 U/L (40-130); Anion Gap 14.6 (5-19); Aspartate Amino Transferase 14 U/L (0-40); Blood Urea Nitrogen 19 mg/dL (8-23); Calcium 9.2 mg/dL (8.5-10.5); Carbon Dioxide 27 mmol/L (22-29); Chloride 103 mmol/L (98-107); Globulin 2.7 g/dL (1.3-4.6); Glucose 98 mg/dL (65-115); Osmolality Calculated 294 mOsm/kg (285-295); Potassium 3.6 mmol/L (3.5-5.1); Sodium 141 mmol/L (136-145); Total Bilirubin 0.2 mg/dL (0.15-1.2); Total Protein 6.6 g/dL (6.6-8.7)
[2022-12-18 02:32] VITALS: BP 156/86; PULSE 96; RESP 15; O2SAT 96
[2022-12-18 02:36] VITALS: BP 153/86; PULSE 88; RESP 18; O2SAT 96
--- NOTE | 2022-12-24 11:52 | DCPLANNER ---
delicatessen manager called patient due to no primary care physician - no answer at this time.
== END 2022-12-18 02:40 | disposition home or self-care (01) ==
PROVIDERS: Emergency Provider Emergency Medicine
DX: R51.9 Headache, unspecified (principal); J44.9 Chronic obstructive pulmonary disease, unspecified; Z85.118 Personal history of other malignant neoplasm of bronchus and lung; F17.210 Nicotine dependence, cigarettes, uncomplicated
CPT/HCPCS: 80053; 85025; 93005; 96374; 99284; J1885

== ENCOUNTER 2023-01-16 18:26 | Emergency (ER) | payer MEDICARE, MEDICAID, SELFPAY ==
[2023-01-16 18:30] VITALS: BP 138/86; PULSE 69; O2SAT 94
--- NOTE | 2023-01-16 18:30 | ECG_ITS ---
[facility] Test Date: 2023-01-16 Pat Name: Mario Schmitt Department: Room: Gender: Male Collections Officer: : 1955 Requested By: Doug Garland Order Number: [id number] David MD: Ivory Zarate M.D. Measurements Intervals [place] Rate: 72 P: 74 TN: 137 QRS: 73 QRSD: 94 T: 70 QT: 418 QTc: 458 Interpretive Statements SINUS RHYTHM MODERATE VOLTAGE CRITERIA FOR LVH, CONSIDER NORMAL VARIANT [MEETS CRITERIA IN ONE OF: R(aVL), S(V1), R(V5), R(V5/V6)+S(V1)] Compared to ECG 12/18/2022 01:36:31 Sinus arrhythmia no longer present Electronically Signed On 01-17-2023 12:11:10 CDT by Ivory Zarate M.D. [id number]
[2023-01-16 18:34] VITALS: BP 138/86; PULSE 74; RESP 18; TEMP 36.8; O2SAT 96; BMI 22.4
--- NOTE | 2023-01-16 18:36 | XRR_ITS ---
PROCEDURE INFORMATION: Exam: XR Chest Exam date and time: 01/16/2023 6:54 PM Age: 67 years old Clinical indication: Shortness of breath and tachypnea; Additional info: Chest pain; Hypertension TECHNIQUE: Imaging protocol: Radiologic exam of the chest. Views: 1 view. COMPARISON: CR XR chest 1V portable [id number] 06/26/2022 8:43 PM FINDINGS: Lungs: Visualized portions of the lungs are clear. There is no pulmonary venous congestion. Pleural spaces: Unremarkable. No pleural effusion. No pneumothorax. Heart/Mediastinum: Heart is within normal limits of size. Bones/joints: Small nodular opacities overlapping the anterior 6th ribs on each side likely represent nipple shadows. XR/XR chest 1V portable [id number] IMPRESSION: No acute infiltrate.
--- NOTE | 2023-01-16 18:36 | W.ED.CHESTPA ---
HPI - Chest Pain General: Chief Complaint: Chest Pain Stated Complaint: chest pain Time Seen by Provider: 01/16/23 18:35 History of Present Illness: Patient presents to the ER with complaints of left-sided chest pain that radiates to his left arm with intermittent started about 2 hours ago but is pain-free now. Patient has had this pain before but never got it checked out. Patient does not have a cardiac history other than high blood pressure. Patient is never had a stent or open heart surgery. Patient denies any nausea vomiting diarrhea paresis shortness of breath. Patient states there is nothing that can make this pain better or worse it just comes and goes on its own. Review of Systems General: Reports: 10 or more systems reviewed and unremarkable except in HPI and below PFSH ED PFSH: Medical History (Updated 01/16/23 @ 21:32 by Doug Garland DO) Chronic back pain COPD (chronic obstructive pulmonary disease) Lung cancer Obstructive sleep apnea Schizophrenia Surgical History H/O hernia repair Social History Smoking and tobacco status: current every day smoker Physical Exam Const: COMMON NORMALS: no acute distress, average body habitus, patient oriented x3, no limitations, healthy appearing, alert and well nourished HENMT: COMMON NORMALS: normocephalic, atraumatic, hearing grossly normal bilaterally, external ears normal, Normal external nose present and moist oral mucous membranes HEAD & SCALP: normocephalic and atraumatic NOSE: Normal external nose present EXTERNAL EAR: Yes external ears normal Eye: COMMON NORMALS: Equal, round and reactive pupils present, EOMs intact bilaterally, conjunctivae normal and no scleral icterus CONJUNCTIVA: Yes conjunctivae normal PUPIL: Yes Equal, round and reactive pupils present Neck/C-Spine: COMMON NORMALS: full ROM, no lymphadenopathy, supple, no meningeal signs, no JVD and Thyroid normal THYROID: Thyroid normal Lymph: LYMPHATIC: no lymphadenopathy noted and no lymphedema noted Chest: COMMONS NORMALS: normal inspection of the chest and normal palpation of entire chest wall Resp: COMMON NORMALS: normal respiratory effort, No retractions, No use of accessory muscles and clear to auscultation bilaterally AUSCULTATION: clear to auscultation bilaterally Cardio: COMMON NORMALS: no JVD, regular rate, regular rhythm, S1 normal heart sound present, S2 normal heart sound present, No gallops present (Cardio), No clicks present (Cardio), No murmurs present (Cardio) and No rub (Cardio) RATE: regular rate RHYTHM: regular rhythm HEART SOUNDS: S1 normal heart sound present and S2 normal heart sound present GI: COMMON NORMALS: Normal to inspection, nondistended, normoactive bowel sounds present, Soft to palpation, non-tender, No hepatosplenomegaly present and no masses PALPATION: Yes Soft to palpation and Yes No hepatosplenomegaly present Neuro: COMMON NORMALS: patient oriented x3 SENSORIUM/ORIENTATION: Yes alert MENINGEAL SIGNS: Yes no meningeal signs Course Vital Signs: Vital signs: Vital Signs Temperature 98.2 F 01/16/23 18:34 Pulse Rate 76 01/16/23 21:12 Respiratory Rate 18 01/16/23 18:34 Blood Pressure 152/92 01/16/23 21:12 Pulse Oximetry 96 01/16/23 21:12 Oxygen Delivery Me thod Room Air 01/16/23 21:12 MDM - Chest Pain Medical Decision Making Patient comes to the ER with complaint of chest pain and high blood pressure. Upon arrival patient's blood pressure was 138/86. Patient was not actively having chest pain. But a chest pain work-up was started that included serial EKGs and serial troponins. All of which was essentially benign. Patient will be discharged home with diagnosis of atypical chest pain and should follow-up with his primary care physician in the next week. Patient should keep a log of his blood pressures and take it with him to his next appointment. Differential Diagnosis Unlikely acute massive pulmonary embolism, acute respiratory failure, acute myocardial infarction, cardiac arrest or sudden cardiac Medical Records I reviewed the patient's medical records. Lab Data I reviewed the patient's lab results. 01/16/23 19:00 01/16/23 19:00 Radiology Impressions Chest X-Ray 01/16/23 18:36 IMPRESSION: No acute infiltrate. Laboratory Results WBC 5.1 10^3/uL (4.0-10.0) 01/16/23 19:00 RBC 4.29 10^6/uL (4.1-5.3) 01/16/23 19:00 Hgb 12.8 g/dL (11.7-16.6) 01/16/23 19:00 Hct 40.1 % (42.0-52.0) L 01/16/23 19:00 MCV 93.5 fl (80-94) 01/16/23 19:00 MCH 29.8 pg (28.0-34.0) 01/16/23 19:00 MCHC 31.9 g/dL (30.0-36.0) 01/16/23 19:00 RDW 13.1 % (12.1-15.1) 01/16/23 19:00 Plt Count 239 10^3/cmm (130-400) 01/16/23 19:00 MPV 10.0 fL (7.4-10.4) 01/16/23 19:00 Neut % (Auto) 50.9 % 01/16/23 19:00 Lymph % (Auto) 34.3 % 01/16/23 19:00 [place] % (Auto) 11.2 % 01/16/23 19:00 Eos % (Auto) 3.0 % 01/16/23 19:00 Baso % (Auto) 0.4 % 01/16/23 19:00 Neut # (Auto) 2.58 10^3/uL (1.8-7.7) 01/16/23 19:00 Lymph # (Auto) 1.7 10^3/uL (0.8-4.8) 01/16/23 19:00 [place] # (Auto) 0.6 10^3/uL (0.2-0.9) 01/16/23 19:00 Eos # (Auto) 0.2 10^3/uL (0.0-0.8) 01/16/23 19:00 Baso # (Auto) 0.0 10^3/uL (0.0-0.1) 01/16/23 19:00 Nucleated RBC % (auto) 0 % 01/16/23 19:00 Nucleated RBCs # 0.0 /100WBC 01/16/23 19:00 PT 13.10 SECONDS (12.1-14.9) 01/16/23 19:00 INR 0.96 (0.8-1.2) 01/16/23 19:00 Sodium 139 mmol/L (136-145) 01/16/23 19:00 Potassium 4.1 mmol/L (3.5-5.1) 01/16/23 19:00 Chloride 103 mmol/L (98-107) 01/16/23 19:00 Carbon Dioxide 27 mmol/L (22-29) 01/16/23 19:00 Anion Gap 13.1 (5-19) 01/16/23 19:00 BUN 21 mg/dL (8-23) 01/16/23 19:00 Creatinine 0.6 mg/dL (0.7-1.2) L 01/16/23 19:00 GFR Calculation 135.2 mL/min (90-130) H 01/16/23 19:00 Glucose 74 mg/dL (65-115) 01/16/23 19:00 Calculated Osmolality 290 mOsm/kg (285-295) 01/16/23 19:00 Calcium 9.0 mg/dL (8.5-10.5) 01/16/23 19:00 Total Bilirubin 0.4 mg/dL (0.15-1.2) 01/16/23 19:00 AST 12 U/L (0-40) 01/16/23 19:00 ALT 11 U/L (0-41) 01/16/23 19:00 Alkaline Phosphatase 81 U/L (40-130) 01/16/23 19:00 Troponin T Baseline 6 ng/L (0-15) 01/16/23 19:00 Troponin T 120 Minute 6.03 ng/L (0-15) 01/16/23 20:44 Delta Troponin T 0.03 ABS# (0-10) 01/16/23 20:44 Total Protein 6.1 g/dL (6.6-8.7) L 01/16/23 19:00 Albumin 3.9 g/dL (3.5-5.2) 01/16/23 19:00 Globulin 2.2 g/dL (1.3-4.6) 01/16/23 19:00 EKG Data EKG 1: I personally reviewed and interpreted this EKG as follows: EKG interpretation date: 01/16/23 EKG interpretation time: 18:30 Prior EKG tracings: not available for review Interpretation: EKG shows ventricular rate 72 beats minute, [place] interval 137, QRS duration 94, sinus rhythm, no ST-T wave changes EKG 2: I personally reviewed and interpreted this EKG as follows: EKG interpretation date: 01/16/23 EKG interpretation time: 20:21 Prior EKG tracings: available for review Interpretation: EKG showed ventricular rate 74 bpm, [place] interval 148, QRS duration 90, QTc 425, sinus rhythm, minimal voltage criteria for LVH, no ST-T wave changes Discharge Plan Discharge Patient Disposition: Home Clinical Impression: Atypical chest pain Condition: Stable Discharge Orders: Discharge ED (Routine); Ordered 01/16/23 Ordered By: Doug Garland Patient Instructions: Chest Pain (ED) Activity Restrictions/Additional Instructions: All your lab work come back negative for cardiac nature. Follow-up with your family practice physician in the next week. Please keep a blood pressure log as you may have high blood pressure which that needs to be treated. If the chest pain worsens please feel free to return to the ER for further evaluation. Coding Level of Care Code ED Kindergarten Assistant for Italo Feliciano
[2023-01-16 19:09] LABS: Basophils % 0.4 %; Eosinophils # 0.2 10^3/uL (0.0-0.8); Hematocrit 40.1 % (42.0-52.0); Hemoglobin 12.8 g/dL (11.7-16.6); Lymphocytes # 1.7 10^3/uL (0.8-4.8); Lymphocytes % 34.3 %; Mean Corpuscular HGB Conc 31.9 g/dL (30.0-36.0); Mean Corpuscular Hemoglobin 29.8 pg (28.0-34.0); Mean Corpuscular Volume 93.5 fl (80-94); Monocytes # 0.6 10^3/uL (0.2-0.9); Monocytes % 11.2 %; Neutrophils # 2.58 10^3/uL (1.8-7.7); Neutrophils % 50.9 %; Nucleated Red Blood Cells % 0 %; Platelet Count 239 10^3/cmm (130-400); Red Blood Count 4.29 10^6/uL (4.1-5.3); Red Cell Distribution Width 13.1 % (12.1-15.1); White Blood Count 5.1 10^3/uL (4.0-10.0)
[2023-01-16 19:24] LABS: INR 0.96 (0.8-1.2)
[2023-01-16 19:33] LABS: Troponin(5th) Baseline 6 ng/L (0-15)
[2023-01-16 19:35] VITALS: BP 161/95; PULSE 71
[2023-01-16 19:41] LABS: Alanine Aminotransferase 11 U/L (0-41); Albumin Level 3.9 g/dL (3.5-5.2); Alkaline Phosphatase 81 U/L (40-130); Anion Gap 13.1 (5-19); Aspartate Amino Transferase 12 U/L (0-40); Blood Urea Nitrogen 21 mg/dL (8-23); Carbon Dioxide 27 mmol/L (22-29); Chloride 103 mmol/L (98-107); Globulin 2.2 g/dL (1.3-4.6); Glomerular Filtration Rate 135.2 mL/min (90-130); Glucose 74 mg/dL (65-115); Osmolality Calculated 290 mOsm/kg (285-295); Potassium 4.1 mmol/L (3.5-5.1); Sodium 139 mmol/L (136-145); Total Bilirubin 0.4 mg/dL (0.15-1.2); Total Protein 6.1 g/dL (6.6-8.7)
[2023-01-16 20:30] VITALS: BP 175/95; PULSE 77
--- NOTE | 2023-01-16 20:36 | ECG_ITS ---
[facility] Test Date: 2023-01-16 Pat Name: Mario Schmitt Department: Room: Gender: Male Maintenance Mgr: : 1955 Requested By: Doug Garland Order Number: [id number] David MD: Kalyan Hernandez M.D. Measurements Intervals [place] Rate: 74 P: 74 IN: 148 QRS: 74 QRSD: 90 T: 72 QT: 398 QTc: 443 Interpretive Statements SINUS RHYTHM MINIMAL VOLTAGE CRITERIA FOR LVH, CONSIDER NORMAL VARIANT [MEETS CRITERIA IN ONE OF: R(aVL), S(V1), R(V5), R(V5/V6)+S(V1)] Compared to ECG 12/18/2022 01:36:31 Sinus arrhythmia no longer present Electronically Signed On 01-16-2023 22:45:02 CDT by Kalyan Hernandez M.D. [id number]
[2023-01-16 21:12] VITALS: BP 152/92; PULSE 76; O2SAT 96
[2023-01-16 21:28] LABS: Troponin 5 2HR 6.03 ng/L (0-15); Troponin 5 2HR Delta 0.03 ABS# (0-10)
[2023-01-16 21:42] VITALS: BP 148/82; PULSE 74; O2SAT 96
--- NOTE | 2023-01-19 15:08 | DCPLANNER ---
studio manager called patient due to no primary care physician - no answer at this time.
== END 2023-01-16 21:47 | disposition home or self-care (01) ==
PROVIDERS: Emergency Provider Emergency Medicine; PCP Nurse Practitioner Family
DX: R07.89 Other chest pain (principal); J44.9 Chronic obstructive pulmonary disease, unspecified; Z85.118 Personal history of other malignant neoplasm of bronchus and lung; F17.210 Nicotine dependence, cigarettes, uncomplicated
CPT/HCPCS: 36415; 71045; 80053; 84484; 85025; 85610; 93005; 99285

== ENCOUNTER 2023-01-23 03:56 | Emergency (ER) | payer MEDICARE, MEDICAID, SELFPAY ==
[2023-01-23 03:57] VITALS: BP 143/90; PULSE 66; RESP 18; TEMP 36.6; O2SAT 96; BMI 22.4
--- NOTE | 2023-01-23 03:57 | XRR_ITS ---
PROCEDURE INFORMATION: Exam: XR Chest Exam date and time: 01/23/2023 4:01 AM Age: 67 years old Clinical indication: Chest pressure; Patient HX: C/O chest pain. History of lung cancer and copd. ; Additional info: Cp TECHNIQUE: Imaging protocol: Radiologic exam of the chest. Views: 1 view. COMPARISON: CR (CHEST, ) 01/16/2023 6:54 PM FINDINGS: Lungs: Unremarkable. No consolidation. Pleural spaces: Unremarkable. No pleural effusion. No pneumothorax. Heart/Mediastinum: Unremarkable. No cardiomegaly. Bones/joints: Degenerative changes are noted. XR/XR chest 1V portable [id number] IMPRESSION: No acute findings.
--- NOTE | 2023-01-23 04:01 | ECG_ITS ---
[facility] Test Date: 2023-01-23 Pat Name: Mario Schmitt Department: Room: Gender: Male Director Clinical Research: : 1955 Requested By: Vince Bryant Order Number: [id number] David MD: Gene Shane M.D. Measurements Intervals [place] Rate: 68 P: 148 [place]: 159 QRS: 116 QRSD: 80 T: 121 QT: 375 QTc: 399 Interpretive Statements SINUS RHYTHM ARM LEADS REVERSED [INVERTED P AND QRS IN I] Compared to ECG 01/16/2023 20:21:59 No significant changes Electronically Signed On 01-23-2023 18:19:50 CDT by Gene Shane M.D. [id number]
--- NOTE | 2023-01-23 04:03 | ED_ITS ---
Documented by User: Vince Bryant MD 01/23/23 04:04 HPI - Chest Pain General: Chief Complaint: Chest Pain Stated Complaint: CP Time Seen by Provider: 01/23/23 03:57 Source: patient and EMS Mode of arrival: EMS Limitations: no limitations History of Present Illness: 67-year-old male states roughly 2 hours ago he started having a sharp pain in the center of his chest. He states that it is improved currently 3 out of 10 he denies any vomiting or diaphoresis denies any shortness of breath he states has been checking his blood pressure throughout the evening its been running high he was seen here a week ago for same he has an appoint with his PCP next week he is not on any blood pressure meds currently. Associated symptoms: Deny abdominal pain, dyspnea, fever(s), nausea or vomiting Review of Systems Const: Denies: fever(s), chills, body aches or change in appetite Eyes: Denies: blurry vision or eye discomfort ENMT: Denies: throat pain or dental pain Card: Reports: chest pain Resp: Denies: dyspnea GI: Denies: abdominal pain, nausea, vomiting or diarrhea : Denies: dysuria Musc: Denies: neck pain or back pain Skin/Breast: Denies: rash Neuro: Denies: headache(s) PFSH ED PFSH: Medical History (Updated 01/23/23 @ 09:43 by Grant Le DO) Chronic back pain COPD (chronic obstructive pulmonary disease) Lung cancer Obstructive sleep apnea Schizophrenia Surgical History H/O hernia repair Social History Smoking and tobacco status: current every day smoker Physical Exam Const: COMMON NORMALS: no acute distress, patient oriented x3 and healthy appearing HENMT: COMMON NORMALS: normocephalic and atraumatic HEAD & SCALP: normocephalic and atraumatic Eye: COMMON NORMALS: Equal, round and reactive pupils present and EOMs intact bilaterally PUPIL: Yes Equal, round and reactive pupils present Neck/C-Spine: COMMON NORMALS: full ROM and supple Chest: COMMONS NORMALS: normal inspection of the chest and normal palpation of entire chest wall Resp: COMMON NORMALS: normal respiratory effort, No retractions, No use of accessory muscles and clear to auscultation bilaterally AUSCULTATION: clear to auscultation bilaterally Cardio: COMMON NORMALS: regular rate, regular rhythm and No murmurs present (Cardio) RATE: regular rate RHYTHM: regular rhythm GI: COMMON NORMALS: Normal to inspection, nondistended, normoactive bowel sounds present, Soft to palpation, non-tender and no masses PALPATION: Yes Soft to palpation Extremity: COMMON NORMALS: normal to inspection and full ROM Neuro: COMMON NORMALS: patient oriented x3, moves all extremities and no focal motor deficits Psych: COMMON NORMALS: mental status grossly normal, Normal thought process present and cooperative THOUGHT PROCESS: Normal thought process present Skin: COMMON NORMALS: no rashes or lesions noted and no wounds GENERAL SKIN EXAM: no rashes or lesions noted Course Vital Signs: Vital signs: Vital Signs Temperature 97.8 F 01/23/23 03:57 Pulse Rate 74 01/23/23 06:53 Respiratory Rate 17 01/23/23 06:53 Blood Pressure 146/79 01/23/23 06:53 Pulse Oximetry 95 01/23/23 06:53 Oxygen Delivery Me thod Room Air 01/23/23 06:53 MDM - Chest Pain Lab Data 01/23/23 05:17 01/23/23 05:17 Radiology Impressions Chest X-Ray 01/23/23 03:57 IMPRESSION: No acute findings. Laboratory Results WBC 6.24 10^3/uL (3.29-11.43) 01/23/23 05:17 RBC 4.35 10^6/uL (3.85-5.65) 01/23/23 05:17 Hgb 13.50 g/dL (11.27-16.99) 01/23/23 05:17 Hct 41.4 % (37-53) 01/23/23 05:17 MCV 95.2 fl (82-101) 01/23/23 05:17 MCH 31.0 pg (27-33) 01/23/23 05:17 MCHC 32.6 g/dL (30-55) 01/23/23 05:17 RDW 13.0 % (12.1-15.1) 01/23/23 05:17 Plt Count 231 10^3/cmm (157-399) 01/23/23 05:17 MPV 10.1 fL (7.4-10.4) 01/23/23 05:17 Neut % (Auto) 50.5 % 01/23/23 05:17 Lymph % (Auto) 34.5 % 01/23/23 05:17 [place] % (Auto) 10.7 % 01/23/23 05:17 Eos % (Auto) 3.2 % 01/23/23 05:17 Baso % (Auto) 0.8 % 01/23/23 05:17 Neut # (Auto) 3.15 10^3/uL (1.8-7.7) 01/23/23 05:17 Lymph # (Auto) 2.2 10^3/uL (0.8-4.8) 01/23/23 05:17 [place] # (Auto) 0.7 10^3/uL (0.2-0.9) 01/23/23 05:17 Eos # (Auto) 0.2 10^3/uL (0.0-0.8) 01/23/23 05:17 Baso # (Auto) 0.1 10^3/uL (0.0-0.1) 01/23/23 05:17 Nucleated RBC % (auto) 0 % 01/23/23 05:17 Nucleated RBCs # 0.0 /100WBC 01/23/23 05:17 Sodium 141 mmol/L (136-145) 01/23/23 05:17 Potassium 4.7 mmol/L (3.5-5.1) 01/23/23 05:17 Chloride 103 mmol/L (98-107) 01/23/23 05:17 Carbon Dioxide 31 mmol/L (22-29) H 01/23/23 05:17 Anion Gap 11.7 (5-19) 01/23/23 05:17 BUN 17 mg/dL (8-23) 01/23/23 05:17 Creatinine 0.6 mg/dL (0.7-1.2) L 01/23/23 05:17 GFR Calculation 135.2 mL/min (90-130) H 01/23/23 05:17 Glucose 99 mg/dL (65-115) 01/23/23 05:17 Calculated Osmolality 294 mOsm/kg (285-295) 01/23/23 05:17 Calcium 9.1 mg/dL (8.5-10.5) 01/23/23 05:17 Total Bilirubin 0.3 mg/dL (0.15-1.2) 01/23/23 05:17 AST 12 U/L (0-40) 01/23/23 05:17 ALT 11 U/L (0-41) 01/23/23 05:17 Alkaline Phosphatase 83 U/L (40-130) 01/23/23 05:17 Troponin T Baseline 7 ng/L (0-15) 01/23/23 05:17 Troponin T 120 Minute 6.8 ng/L (0-15) 01/23/23 07:10 Delta Troponin T -0.2 ABS# (0-10) L 01/23/23 07:10 Total Protein 6.2 g/dL (6.6-8.7) L 01/23/23 05:17 Albumin 4.0 g/dL (3.5-5.2) 01/23/23 05:17 Globulin 2.2 g/dL (1.3-4.6) 01/23/23 05:17 Lipase 29 U/L (13-60) 01/23/23 05:17 Discharge Plan Discharge Patient Disposition: Home Clinical Impression: Atypical chest pain, Hypertension Condition: Stable Prescriptions: New aspirin 81 mg tablet,delayed release (DR/EC) 81 mg PO DAILY Qty: 30 0RF isosorbide mononitrate 30 mg tablet extended release 24 hr 30 mg PO DAILY Qty: 30 0RF Discontinued sildenafil 100 mg tablet 100 mg PO DAILY PRN (Reason: Erectile Dysfunction) No Action albuterol sulfate 2.5 mg /3 mL (0.083 %) Solution For Nebulization 2.5 mg INHALATION QID PRN (Reason: Shortness Of Breath Or Wheezing) albuterol sulfate 90 mcg/actuation Hfa Aerosol Inhaler 2 puff INHALATION 6XD PRN (Reason: Shortness Of Breath Or Wheezing) Discharge Orders: Discharge ED (Routine); Ordered 01/23/23 Ordered By: Grant Le Discharge Activity: Limit activity as instructed Patient Instructions: Opioid Safety, Pain Management Activity Restrictions/Additional Instructions: Avoid exertional activity. Do not take Viagra/sildenafil. Start baby aspirin daily and isosorbide mononitrate daily. Case management make arrangements for an outpatient Lexiscan sestamibi stress test Sign Out Sign Out Data: Patient Sign Out occurred on 01/23/23 at 05:59. Patient's care was discussed, and care was transferred from to Grant Le DO. Coding Level of Care Code ED Tier Lift Operator for Chg Fwd Documented by User: Grant Le DO 01/23/23 09:43 HPI - Chest Pain General: Chief Complaint: Chest Pain Stated Complaint: CP Time Seen by Provider: 01/23/23 03:57 PFSH ED PFSH: Medical History (Updated 01/23/23 @ 09:43 by Grant Le DO) Chronic back pain COPD (chronic obstructive pulmonary disease) Lung cancer Obstructive sleep apnea Schizophrenia Surgical History H/O hernia repair Social History Smoking and tobacco status: current every day smoker Course Vital Signs: Vital signs: Vital Signs Temperature 97.8 F 01/23/23 03:57 Pulse Rate 74 01/23/23 06:53 Respiratory Rate 17 01/23/23 06:53 Blood Pressure 146/79 01/23/23 06:53 Pulse Oximetry 95 01/23/23 06:53 Oxygen Delivery Me thod Room Air 01/23/23 06:53 MDM - Chest Pain Medical Decision Making Care assumed at change of shift. Cardiac enzymes and EKG unremarkable for acute changes. Will start on isosorbide mononitrate 30 mg daily and advised patient do not take his sildenafil. Also have him take baby aspirin daily and will set up outpatient Lexiscan sestamibi stress test return to the emergency room if has further problems Medical Records I reviewed the patient's medical records. Lab Data I reviewed the patient's lab results. 01/23/23 05:17 01/23/23 05:17 Radiology Impressions Chest X-Ray 01/23/23 03:57 IMPRESSION: No acute findings. Laboratory Results WBC 6.24 10^3/uL (3.29-11.43) 01/23/23 05:17 RBC 4.35 10^6/uL (3.85-5.65) 01/23/23 05:17 Hgb 13.50 g/dL (11.27-16.99) 01/23/23 05:17 Hct 41.4 % (37-53) 01/23/23 05:17 MCV 95.2 fl (82-101) 01/23/23 05:17 MCH 31.0 pg (27-33) 01/23/23 05:17 MCHC 32.6 g/dL (30-55) 01/23/23 05:17 RDW 13.0 % (12.1-15.1) 01/23/23 05:17 Plt Count 231 10^3/cmm (157-399) 01/23/23 05:17 MPV 10.1 fL (7.4-10.4) 01/23/23 05:17 Neut % (Auto) 50.5 % 01/23/23 05:17 Lymph % (Auto) 34.5 % 01/23/23 05:17 [place] % (Auto) 10.7 % 01/23/23 05:17 Eos % (Auto) 3.2 % 01/23/23 05:17 Baso % (Auto) 0.8 % 01/23/23 05:17 Neut # (Auto) 3.15 10^3/uL (1.8-7.7) 01/23/23 05:17 Lymph # (Auto) 2.2 10^3/uL (0.8-4.8) 01/23/23 05:17 [place] # (Auto) 0.7 10^3/uL (0.2-0.9) 01/23/23 05:17 Eos # (Auto) 0.2 10^3/uL (0.0-0.8) 01/23/23 05:17 Baso # (Auto) 0.1 10^3/uL (0.0-0.1) 01/23/23 05:17 Nucleated RBC % (auto) 0 % 01/23/23 05:17 Nucleated RBCs # 0.0 /100WBC 01/23/23 05:17 Sodium 141 mmol/L (136-145) 01/23/23 05:17 Potassium 4.7 mmol/L (3.5-5.1) 01/23/23 05:17 Chloride 103 mmol/L (98-107) 01/23/23 05:17 Carbon Dioxide 31 mmol/L (22-29) H 01/23/23 05:17 Anion Gap 11.7 (5-19) 01/23/23 05:17 BUN 17 mg/dL (8-23) 01/23/23 05:17 Creatinine 0.6 mg/dL (0.7-1.2) L 01/23/23 05:17 GFR Calculation 135.2 mL/min (90-130) H 01/23/23 05:17 Glucose 99 mg/dL (65-115) 01/23/23 05:17 Calculated Osmolality 294 mOsm/kg (285-295) 01/23/23 05:17 Calcium 9.1 mg/dL (8.5-10.5) 01/23/23 05:17 Total Bilirubin 0.3 mg/dL (0.15-1.2) 01/23/23 05:17 AST 12 U/L (0-40) 01/23/23 05:17 ALT 11 U/L (0-41) 01/23/23 05:17 Alkaline Phosphatase 83 U/L (40-130) 01/23/23 05:17 Troponin T Baseline 7 ng/L (0-15) 01/23/23 05:17 Troponin T 120 Minute 6.8 ng/L (0-15) 01/23/23 07:10 Delta Troponin T -0.2 ABS# (0-10) L 01/23/23 07:10 Total Protein 6.2 g/dL (6.6-8.7) L 01/23/23 05:17 Albumin 4.0 g/dL (3.5-5.2) 01/23/23 05:17 Globulin 2.2 g/dL (1.3-4.6) 01/23/23 05:17 Lipase 29 U/L (13-60) 01/23/23 05:17 Discharge Plan Discharge Patient Disposition: Home Clinical Impression: Atypical chest pain, Hypertension Condition: Stable Prescriptions: New aspirin 81 mg tablet,delayed release (DR/EC) 81 mg PO DAILY Qty: 30 0RF isosorbide mononitrate 30 mg tablet extended release 24 hr 30 mg PO DAILY Qty: 30 0RF Discontinued sildenafil 100 mg tablet 100 mg PO DAILY PRN (Reason: Erectile Dysfunction) No Action albuterol sulfate 2.5 mg /3 mL (0.083 %) Solution For Nebulization 2.5 mg INHALATION QID PRN (Reason: Shortness Of Breath Or Wheezing) albuterol sulfate 90 mcg/actuation Hfa Aerosol Inhaler 2 puff INHALATION 6XD PRN (Reason: Shortness Of Breath Or Wheezing) Discharge Orders: Discharge ED (Routine); Ordered 01/23/23 Ordered By: Grant Le Discharge Activity: Limit activity as instructed Patient Instructions: Opioid Safety, Pain Management Activity Restrictions/Additional Instructions: Avoid exertional activity. Do not take Viagra/sildenafil. Start baby aspirin daily and isosorbide mononitrate daily. Case management make arrangements for an outpatient Lexiscan sestamibi stress test Sign Out Sign Out Data: Patient Sign Out occurred on 01/23/23 at 05:59. Patient's care was discussed, and care was transferred from to Grant Le DO. Coding Level of Care Code ED Tier Lift Operator for Italo Feliciano
[2023-01-23 04:04] VITALS: BP 143/90
[2023-01-23 05:23] LABS: Basophils # 0.1 10^3/uL (0.0-0.1); Basophils % 0.8 %; Eosinophils # 0.2 10^3/uL (0.0-0.8); Eosinophils % 3.2 %; Hematocrit 41.4 % (37-53); Lymphocytes # 2.2 10^3/uL (0.8-4.8); Lymphocytes % 34.5 %; Mean Corpuscular HGB Conc 32.6 g/dL (30-55); Mean Corpuscular Volume 95.2 fl (82-101); Mean Platelet Volume 10.1 fL (7.4-10.4); Monocytes # 0.7 10^3/uL (0.2-0.9); Monocytes % 10.7 %; Neutrophils # 3.15 10^3/uL (1.8-7.7); Neutrophils % 50.5 %; Nucleated Red Blood Cells % 0 %; Platelet Count 231 10^3/cmm (157-399); Red Blood Count 4.35 10^6/uL (3.85-5.65); White Blood Count 6.24 10^3/uL (3.29-11.43)
[2023-01-23 05:49] LABS: Alanine Aminotransferase 11 U/L (0-41); Alkaline Phosphatase 83 U/L (40-130); Anion Gap 11.7 (5-19); Aspartate Amino Transferase 12 U/L (0-40); Blood Urea Nitrogen 17 mg/dL (8-23); Calcium 9.1 mg/dL (8.5-10.5); Carbon Dioxide 31 mmol/L (22-29); Chloride 103 mmol/L (98-107); Globulin 2.2 g/dL (1.3-4.6); Glomerular Filtration Rate 135.2 mL/min (90-130); Glucose 99 mg/dL (65-115); Lipase 29 U/L (13-60); Osmolality Calculated 294 mOsm/kg (285-295); Potassium 4.7 mmol/L (3.5-5.1); Sodium 141 mmol/L (136-145); Total Bilirubin 0.3 mg/dL (0.15-1.2); Total Protein 6.2 g/dL (6.6-8.7); Troponin(5th) Baseline 7 ng/L (0-15)
--- NOTE | 2023-01-23 05:53 | ECG_ITS ---
[facility] Test Date: 2023-01-23 Pat Name: Mario Schmitt Department: Room: Gender: Male Guard Chief: : 1955 Requested By: Vince Bryant Order Number: [id number] David MD: Gene Shane M.D. Measurements Intervals [place] Rate: 61 P: 71 HI: 153 QRS: 74 QRSD: 93 T: 74 QT: 408 QTc: 414 Interpretive Statements SINUS RHYTHM WITH SINUS ARRHYTHMIA VOLTAGE CRITERIA FOR LVH [MEETS CRITERIA IN ONE OF: R(aVL), S(V1), R(V5), R(V5/V6)+S(V1)] Compared to ECG 01/16/2023 20:21:59 No significant changes Electronically Signed On 01-23-2023 18:15:43 CDT by Gene Shane M.D. [email or web address]
[2023-01-23 05:55] VITALS: BP 138/76; PULSE 60; RESP 16; O2SAT 96
[2023-01-23 06:27] VITALS: BP 149/84; PULSE 78; RESP 18; O2SAT 96
[2023-01-23 06:53] VITALS: BP 146/79; PULSE 74; RESP 17; O2SAT 95
[2023-01-23 07:38] LABS: Troponin 5 2HR 6.8 ng/L (0-15); Troponin 5 2HR Delta -0.2 ABS# (0-10)
--- NOTE | 2023-01-23 08:25 | PC.PHAR ---
PT STS HE FILLED HIS MEDICATIONS THROUGH [facility]- CLINIC HAS BEEN CLOSED FOR OVER A YEAR- PT STS HE TOOK SOMEONE'S LISINOPRIL THIS MORNING AND IS UNABLE TO VERIFY WHAT MG.
--- NOTE | 2023-01-23 10:04 | DCPLANNER ---
Addendum entered by Hayley Franco 01/28/23 13:07: executive office manager received notification from centralized scheduling that patient has been contacted 3 times with no success, his order is inactive, he can call scheduling to schedule. Original Note: executive office manager had message to schedule an outpatient stress test for patient. executive office manager faxed signed order to centralized scheduling, who will call patient with appointment information.
--- NOTE | 2023-01-29 14:44 | DCPLANNER ---
parts department manager was triggered to call patient due to no primary care physician - patient sees [facility].
== END 2023-01-23 09:24 | disposition home or self-care (01) ==
PROVIDERS: Emergency Medicine; Emergency Provider Family Medicine; PCP Nurse Practitioner Family
DX: R07.89 Other chest pain (principal); I10 Essential (primary) hypertension
CPT/HCPCS: 36415; 71045; 80053; 83690; 84484; 85025; 93005; 99285

== ENCOUNTER 2023-02-09 14:50 | Emergency (ER) | payer MEDICARE, MEDICAID, SELFPAY ==
[2023-02-09 14:50] VITALS: BMI 22.4
[2023-02-09 14:56] VITALS: BP 121/75; PULSE 67; RESP 18; TEMP 36.6; O2SAT 90
--- NOTE | 2023-02-09 14:57 | XR_ITS ---
WS: [id number] Exam: XR chest 1V portable [id number] Date/Time of Exam: 02/09/2023 3:07 PM Reason For Exam: chest pain Comparison 01/23/2023. The lungs are clear and fully inflated. Normal cardiomediastinal silhouette and regional bony element s. EKG leads superimpose the chest. IMPRESSION: 1. No acute cardiopulmonary finding. No change.
[2023-02-09 15:01] VITALS: O2SAT 91
--- NOTE | 2023-02-09 15:03 | ED_ITS ---
Documented by User: Grant Le DO 02/10/23 06:11 HPI - Chest Pain General: Chief Complaint: Chest Pain Stated Complaint: chest pain Time Seen by Provider: 02/09/23 14:57 Source: patient Mode of arrival: ambulatory History of Present Illness: 68 yo male presents emergency room with complaint of chest pain. Is worse when he takes a deep breath worse with palpation. No fever sweats or chills or productive cough. Chest pain began yesterday and has been intermittent and woke him up this morning. He rates at its worst it was 7 of 10. Initially began in the right side of his chest and moved to the left side called the ambulance after and after it started radiating to his neck. No vomiting no diarrhea. No diaphoresis. No known history of coronary artery disease. Patient received as pirin and nitro in the field before arrival here. He has does have a history of lung cancer in the past. MD complaint: chest pain Onset (ago): minute(s) Timing of current episode: episodic Onset: during rest Pain location: left chest and right chest Pain radiation: neck Severity: mild Quality: tightness Relieving factors: nothing Exacerbating factors: nothing Associated symptoms: Deny abdominal pain, diaphoresis, dyspnea, fever(s), leg edema, nausea, palpitations, sense of impending doom, syncope or vomiting Review of Systems Const: Denies: fever(s) or diaphoresis Card: Reports: chest pain; Denies: palpitations or syncope Resp: Reports: non-productive cough, wheezing and pain on inspiration; Denies: dyspnea GI: Denies: abdominal pain, nausea or vomiting [facility] ED PFSH: Medical History Chronic back pain COPD (chronic obstructive pulmonary disease) Lung cancer Obstructive sleep apnea Schizophrenia Surgical History H/O hernia repair Social History Smoking and tobacco status: current every day smoker Physical Exam Const: GENERAL APPEARANCE: cooperative and comfortable ORIENTATION/CONSCIOUSNESS: Yes awake, Yes oriented to person, Yes oriented to place and Yes oriented to time HENMT: COMMON NORMALS: normocephalic, atraumatic and hearing grossly normal bilaterally HEAD & SCALP: normocephalic and atraumatic Chest: CHEST: Yes tenderness pectoral muscle on the right Resp: COMMON NORMALS: normal respiratory effort, No retractions, No use of accessory muscles and clear to auscultation bilaterally AUSCULTATION: clear to auscultation bilaterally Cardio: COMMON NORMALS: regular rate, regular rhythm and No murmurs present (Cardio) RATE: regular rate RHYTHM: regular rhythm GI: COMMON NORMALS: Soft to palpation and No hepatosplenomegaly present AUSCULTATION: Yes normoactive bowel sounds PALPATION: Yes Soft to palpation, No Tenderness to palpation present (GI), No Guarding due to palpation present (GI) and Yes No hepatosplenomegaly present Extremity: COMMON NORMALS: normal to inspection, capillary refill normal, no clubbing, cyanosis or edema, no calf tenderness and no pedal edema Neuro: SENSORIUM/ORIENTATION: Yes oriented to person, Yes oriented to place and Yes oriented to time Skin: COMMON NORMALS: no rashes or lesions noted GENERAL SKIN EXAM: no rashes or lesions noted Course Vital Signs: Vital signs: Vital Signs Temperature 97.9 F 02/09/23 14:56 Pulse Rate 67 02/09/23 14:56 Respiratory Rate 18 02/09/23 14:56 Blood Pressure 121/75 02/09/23 14:56 Pulse Oximetry 91 02/09/23 15:01 Oxygen Delivery Me thod Room Air 02/09/23 15:01 MDM - Chest Pain Medical Decision Making Care signed out to Dr. Garland at change of shift. See final notes for diagnosis and disposition. Patient presents to the ER with complaints of chest pain that started in his right scapular region and rotated around to his left chest region going up into his neck. Patient states pain started about 6 like this morning. Patient presents to the ER later on this afternoon. Patient did take a blood pressure pill and aspirin around 6 AM. Patient was worked up in a standard cardiac fashion with serial cardiac enzymes, EKGs chest x-ray and lab work. All of which is essentially benign for acute cardiac issues. Is felt this was not cardiac in nature. Patient be discharged home with a diagnosis of atypical chest pain. Patient should follow-up with his PCP within the next 7 days or sooner as needed. Lab Data 02/09/23 15:17 02/09/23 15:17 Laboratory Results WBC 6.48 10^3/uL (3.29-11.43) 02/09/23 15:17 RBC 4.64 10^6/uL (3.85-5.65) 02/09/23 15:17 Hgb 14.10 g/dL (11.27-16.99) 02/09/23 15:17 Hct 42.8 % (37-53) 02/09/23 15:17 MCV 92.2 fl (82-101) 02/09/23 15:17 MCH 30.4 pg (27-33) 02/09/23 15:17 MCHC 32.9 g/dL (30-55) 02/09/23 15:17 RDW 13.1 % (12.1-15.1) 02/09/23 15:17 Plt Count 262 10^3/cmm (157-399) 02/09/23 15:17 MPV 10.1 fL (7.4-10.4) 02/09/23 15:17 Neut % (Auto) 52.7 % 02/09/23 15:17 Lymph % (Auto) 33.8 % 02/09/23 15:17 Story % (Auto) 9.6 % 02/09/23 15:17 Eos % (Auto) 3.2 % 02/09/23 15:17 Baso % (Auto) 0.5 % 02/09/23 15:17 Neut # (Auto) 3.42 10^3/uL (1.8-7.7) 02/09/23 15:17 Lymph # (Auto) 2.2 10^3/uL (0.8-4.8) 02/09/23 15:17 Story # (Auto) 0.6 10^3/uL (0.2-0.9) 02/09/23 15:17 Eos # (Auto) 0.2 10^3/uL (0.0-0.8) 02/09/23 15:17 Baso # (Auto) 0.0 10^3/uL (0.0-0.1) 02/09/23 15:17 Nucleated RBC % (auto) 0 % 02/09/23 15:17 Nucleated RBCs # 0.0 /100WBC 02/09/23 15:17 Sodium 138 mmol/L (136-145) 02/09/23 15:17 Potassium 4.4 mmol/L (3.5-5.1) 02/09/23 15:17 Chloride 101 mmol/L (98-107) 02/09/23 15:17 Carbon Dioxide 29 mmol/L (22-29) 02/09/23 15:17 Anion Gap 12.4 (5-19) 02/09/23 15:17 BUN 15 mg/dL (8-23) 02/09/23 15:17 Creatinine 0.6 mg/dL (0.7-1.2) L 02/09/23 15:17 GFR Calculation 134.8 mL/min (90-130) H 02/09/23 15:17 Glucose 116 mg/dL (65-115) H 02/09/23 15:17 Calculated Osmolality 288 mOsm/kg (285-295) 02/09/23 15:17 Calcium 9.5 mg/dL (8.5-10.5) 02/09/23 15:17 Total Bilirubin 0.2 mg/dL (0.15-1.2) 02/09/23 15:17 AST 11 U/L (0-40) 02/09/23 15:17 ALT 8 U/L (0-41) 02/09/23 15:17 Alkaline Phosphatase 87 U/L (40-130) 02/09/23 15:17 Troponin T Baseline 7 ng/L (0-15) 02/09/23 15:17 Troponin T 120 Minute 6.0 ng/L (0-15) 02/09/23 17:06 Delta Troponin T -1.0 ABS# (0-10) L 02/09/23 17:06 Total Protein 6.1 g/dL (6.6-8.7) L 02/09/23 15:17 Albumin 3.9 g/dL (3.5-5.2) 02/09/23 15:17 Globulin 2.2 g/dL (1.3-4.6) 02/09/23 15:17 Discharge Plan Discharge Patient Disposition: Home Clinical Impression: Atypical chest pain Condition: Stable Prescriptions: No Action albuterol sulfate 2.5 mg /3 mL (0.083 %) Solution For Nebulization 2.5 mg INHALATION QID PRN (Reason: Shortness Of Breath Or Wheezing) albuterol sulfate 90 mcg/actuation Hfa Aerosol Inhaler 2 puff INHALATION 6XD PRN (Reason: Shortness Of Breath Or Wheezing) aspirin 81 mg tablet,delayed release (DR/EC) 81 mg PO DAILY Qty: 30 0RF isosorbide mononitrate 30 mg tablet extended release 24 hr 30 mg PO DAILY Qty: 30 0RF Discharge Orders: Discharge ED (Routine); Ordered 02/09/23 Ordered By: Doug Garland Referrals: Jase,LUIS MIGUEL De La VegaN [Primary Care Provider] - 1 week Patient Instructions: Chest Pain - Noncardiac Activity Restrictions/Additional Instructions: Your work-up today in the ER was benign for cardiac related chest pain. It is felt that this is noncardiac in nature. Please follow-up with your family practice physician in the next 7 days or sooner as needed for further evaluation and testing. If your pain worsens or gets uncontrolled please feel free to return to the ER for further testing. Coding Level of Care Code ED Game Engineer for Chg Fwd Documented by User: Doug Garland DO 02/09/23 17:45 HPI - Chest Pain General: Chief Complaint: Chest Pain Stated Complaint: chest pain Time Seen by Provider: 02/09/23 14:57 PFSH ED PFSH: Medical History Chronic back pain COPD (chronic obstructive pulmonary disease) Lung cancer Obstructive sleep apnea Schizophrenia Surgical History H/O hernia repair Social History Smoking and tobacco status: current every day smoker Course Vital Signs: Vital signs: Vital Signs Temperature 97.9 F 02/09/23 14:56 Pulse Rate 67 02/09/23 14:56 Respiratory Rate 18 02/09/23 14:56 Blood Pressure 121/75 02/09/23 14:56 Pulse Oximetry 91 02/09/23 15:01 Oxygen Delivery Me thod Room Air 02/09/23 15:01 MDM - Chest Pain Medical Decision Making Patient presents to the ER with complaints of chest pain that started in his right scapular region and rotated around to his left chest region going up into his neck. Patient states pain started about 6 like this morning. Patient presents to the ER later on this afternoon. Patient did take a blood pressure pill and aspirin around 6 AM. Patient was worked up in a standard cardiac fashion with serial cardiac enzymes, EKGs chest x-ray and lab work. All of which is essentially benign for acute cardiac issues. Is felt this was not cardiac in nature. Patient be discharged home with a diagnosis of atypical chest pain. Patient should follow-up with his PCP within the next 7 days or sooner as needed. Medical Records I reviewed the patient's medical records. Lab Data I reviewed the patient's lab results. 02/09/23 15:17 02/09/23 15:17 Laboratory Results WBC 6.48 10^3/uL (3.29-11.43) 02/09/23 15:17 RBC 4.64 10^6/uL (3.85-5.65) 02/09/23 15:17 Hgb 14.10 g/dL (11.27-16.99) 02/09/23 15:17 Hct 42.8 % (37-53) 02/09/23 15:17 MCV 92.2 fl (82-101) 02/09/23 15:17 MCH 30.4 pg (27-33) 02/09/23 15:17 MCHC 32.9 g/dL (30-55) 02/09/23 15:17 RDW 13.1 % (12.1-15.1) 02/09/23 15:17 Plt Count 262 10^3/cmm (157-399) 02/09/23 15:17 MPV 10.1 fL (7.4-10.4) 02/09/23 15:17 Neut % (Auto) 52.7 % 02/09/23 15:17 Lymph % (Auto) 33.8 % 02/09/23 15:17 Story % (Auto) 9.6 % 02/09/23 15:17 Eos % (Auto) 3.2 % 02/09/23 15:17 Baso % (Auto) 0.5 % 02/09/23 15:17 Neut # (Auto) 3.42 10^3/uL (1.8-7.7) 02/09/23 15:17 Lymph # (Auto) 2.2 10^3/uL (0.8-4.8) 02/09/23 15:17 Story # (Auto) 0.6 10^3/uL (0.2-0.9) 02/09/23 15:17 Eos # (Auto) 0.2 10^3/uL (0.0-0.8) 02/09/23 15:17 Baso # (Auto) 0.0 10^3/uL (0.0-0.1) 02/09/23 15:17 Nucleated RBC % (auto) 0 % 02/09/23 15:17 Nucleated RBCs # 0.0 /100WBC 02/09/23 15:17 Sodium 138 mmol/L (136-145) 02/09/23 15:17 Potassium 4.4 mmol/L (3.5-5.1) 02/09/23 15:17 Chloride 101 mmol/L (98-107) 02/09/23 15:17 Carbon Dioxide 29 mmol/L (22-29) 02/09/23 15:17 Anion Gap 12.4 (5-19) 02/09/23 15:17 BUN 15 mg/dL (8-23) 02/09/23 15:17 Creatinine 0.6 mg/dL (0.7-1.2) L 02/09/23 15:17 GFR Calculation 134.8 mL/min (90-130) H 02/09/23 15:17 Glucose 116 mg/dL (65-115) H 02/09/23 15:17 Calculated Osmolality 288 mOsm/kg (285-295) 02/09/23 15:17 Calcium 9.5 mg/dL (8.5-10.5) 02/09/23 15:17 Total Bilirubin 0.2 mg/dL (0.15-1.2) 02/09/23 15:17 AST 11 U/L (0-40) 02/09/23 15:17 ALT 8 U/L (0-41) 02/09/23 15:17 Alkaline Phosphatase 87 U/L (40-130) 02/09/23 15:17 Troponin T Baseline 7 ng/L (0-15) 02/09/23 15:17 Troponin T 120 Minute 6.0 ng/L (0-15) 02/09/23 17:06 Delta Troponin T -1.0 ABS# (0-10) L 02/09/23 17:06 Total Protein 6.1 g/dL (6.6-8.7) L 02/09/23 15:17 Albumin 3.9 g/dL (3.5-5.2) 02/09/23 15:17 Globulin 2.2 g/dL (1.3-4.6) 02/09/23 15:17 Discharge Plan Discharge Patient Disposition: Home Clinical Impression: Atypical chest pain Condition: Stable Prescriptions: No Action albuterol sulfate 2.5 mg /3 mL (0.083 %) Solution For Nebulization 2.5 mg INHALATION QID PRN (Reason: Shortness Of Breath Or Wheezing) albuterol sulfate 90 mcg/actuation Hfa Aerosol Inhaler 2 puff INHALATION 6XD PRN (Reason: Shortness Of Breath Or Wheezing) aspirin 81 mg tablet,delayed release (DR/EC) 81 mg PO DAILY Qty: 30 0RF isosorbide mononitrate 30 mg tablet extended release 24 hr 30 mg PO DAILY Qty: 30 0RF Discharge Orders: Discharge ED (Routine); Ordered 02/09/23 Ordered By: Doug Garland Referrals: Yolette Laguna APN [Primary Care Provider] - 1 week Patient Instructions: Chest Pain - Noncardiac Activity Restrictions/Additional Instructions: Your work-up today in the ER was benign for cardiac related chest pain. It is felt that this is noncardiac in nature. Please follow-up with your family practice physician in the next 7 days or sooner as needed for further evaluation and testing. If your pain worsens or gets uncontrolled please feel free to return to the ER for further testing. Coding Level of Care Code ED Game Engineer for Italo Feliciano
[2023-02-09 15:24] LABS: Basophils % 0.5 %; Eosinophils # 0.2 10^3/uL (0.0-0.8); Eosinophils % 3.2 %; Hematocrit 42.8 % (37-53); Lymphocytes # 2.2 10^3/uL (0.8-4.8); Lymphocytes % 33.8 %; Mean Corpuscular HGB Conc 32.9 g/dL (30-55); Mean Corpuscular Hemoglobin 30.4 pg (27-33); Mean Corpuscular Volume 92.2 fl (82-101); Mean Platelet Volume 10.1 fL (7.4-10.4); Monocytes # 0.6 10^3/uL (0.2-0.9); Monocytes % 9.6 %; Neutrophils # 3.42 10^3/uL (1.8-7.7); Neutrophils % 52.7 %; Nucleated Red Blood Cells % 0 %; Platelet Count 262 10^3/cmm (157-399); Red Blood Count 4.64 10^6/uL (3.85-5.65); Red Cell Distribution Width 13.1 % (12.1-15.1); White Blood Count 6.48 10^3/uL (3.29-11.43)
[2023-02-09 15:52] LABS: Troponin(5th) Baseline 7 ng/L (0-15)
[2023-02-09 15:54] LABS: Alanine Aminotransferase 8 U/L (0-41); Albumin Level 3.9 g/dL (3.5-5.2); Alkaline Phosphatase 87 U/L (40-130); Aspartate Amino Transferase 11 U/L (0-40); Blood Urea Nitrogen 15 mg/dL (8-23); Calcium 9.5 mg/dL (8.5-10.5); Carbon Dioxide 29 mmol/L (22-29); Chloride 101 mmol/L (98-107); Creatinine Clr Calc Pharmacy 104.1545; Globulin 2.2 g/dL (1.3-4.6); Glomerular Filtration Rate 134.8 mL/min (90-130); Glucose 116 mg/dL (65-115); Osmolality Calculated 288 mOsm/kg (285-295); Sodium 138 mmol/L (136-145); Total Bilirubin 0.2 mg/dL (0.15-1.2); Total Protein 6.1 g/dL (6.6-8.7)
[2023-02-09 15:55] LABS: Anion Gap 12.4 (5-19); Potassium 4.4 mmol/L (3.5-5.1)
[2023-02-09] MEDS: ketorolac 30 mg/mL INJ IVP (16:05)
[2023-02-09] MEDS: HYDROcodone-acetaminophen 5-325 mg Tablet 1 TAB PO (16:52)
--- NOTE | 2023-02-09 16:57 | ECG_ITS ---
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 Measurements Intervals [place] Rate: 63 P: 70 SD: 142 QRS: 77 QRSD: 93 T: 80 QT: 411 QTc: 423 Interpretive Statements SINUS RHYTHM MINIMAL VOLTAGE CRITERIA FOR LVH, CONSIDER NORMAL VARIANT [MEETS CRITERIA IN ONE OF: R(aVL), S(V1), R(V5), R(V5/V6)+S(V1)] Compared to ECG 01/23/2023 05:53:41 Sinus arrhythmia no longer present Electronically Signed On 02-09-2023 16:05:32 CDT by Johnathan Aguilar M.D. [email or web address]/[id number]
== END 2023-02-09 17:58 | disposition home or self-care (01) ==
PROVIDERS: Emergency Provider Family Medicine; PCP Nurse Practitioner Family
DX: R07.89 Other chest pain (principal); Z79.82 Long term (current) use of aspirin; J44.9 Chronic obstructive pulmonary disease, unspecified; Z85.118 Personal history of other malignant neoplasm of bronchus and lung; F17.210 Nicotine dependence, cigarettes, uncomplicated
CPT/HCPCS: 36415; 71045; 80053; 84484; 85025; 93005; 99285; J1885

== ENCOUNTER 2023-10-15 10:40 | Outpatient (CLI) | payer OTHER, MEDICAID, SELFPAY ==
--- NOTE | 2023-10-15 11:05 | XR_ITS ---
WS: [id number] Left hip, AP and frog-leg views, AP pelvis, 10/15/2023 Clinical Data: R HIP PAIN Comparison: None. Findings: No fractures or dislocations are seen. The left hip joint shows no narrowing, sclerosis, erosion cyst formation or fragmentation of the left femoral head. The right hip is normal. The soft tissues are n ot remarkable. The adjacent pelvis is normal. 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 There is a fecal impaction. XR/XR hip LT 2-3V wo/w pel* [id number] Impression: Negative pelvis and left hip. Tonnis classification: grade 0: normal radiographs
--- NOTE | 2023-10-15 11:05 | XR_ITS ---
WS: [id number] Right elbow, 3 views, 10/15/2023 Clinical Data: R ELBOW PAIN Comparison: Right forearm, 04/01/2016 Findings: No fractures or dislocations are seen. The radial head shows a small spur. The soft tissues are unrem arkable. XR/XR elbow RT min 3V* [id number] Impression: Small spur of the right radial head.
== END 2023-10-15 10:41 | disposition home or self-care (01) ==
LOC: RAD 10:47
PROVIDERS: PCP Nurse Practitioner Family; Visit Provider Nurse Practitioner Family
DX: M25.551 Pain in right hip (principal); M47.816 Spondylosis without myelopathy or radiculopathy, lumbar region; K56.41 Fecal impaction; M25.721 Osteophyte, right elbow
CPT/HCPCS: 73080; 73502

== ENCOUNTER 2023-11-07 | Emergency (ER) | payer OTHER, MEDICAID, SELFPAY ==
[2023-11-07 00:01] VITALS: BP 137/65; PULSE 70; RESP 16; TEMP 36.6; O2SAT 95
--- NOTE | 2023-11-07 00:04 | XRR_ITS ---
PROCEDURE INFORMATION: Exam: XR Chest Exam date and time: 11/07/2023 12:06 AM Age: 68 years old Clinical indication: Shortness of breath; Chest pressure; Patient HX: C/O chest pain with SOB. History of lung cancer. ; Additional info: Cp TECHNIQUE: Imaging protocol: Radiologic exam of the chest. Views: 1 view. COMPARISON: CR XR chest 1V portable [id number] 02/09/2023 3:10 PM FINDINGS: Lungs: Stable mild interstitial prominence, likely chronic. Increased basilar density compared to prior study likely related to decreased lung volumes with basilar atelectatic change. Pleural spaces: No pleural effusion or pneumothorax. Heart/Mediastinum: The cardiomediastinal silhouette is within normal limits. Bones/joints: No acute osseous abnormalities are seen. XR/XR chest 1V portable [id number] IMPRESSION: 1. Increased basilar density compared to prior study likely related to decreased lung volumes with basilar atelectatic change. 2. No definitive acute cardiopulmonary disease.
--- NOTE | 2023-11-07 00:09 | ECG_ITS ---
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 Measurements Intervals [place] Rate: 64 P: 76 OK: 156 QRS: 81 QRSD: 85 T: 78 QT: 409 QTc: 422 Interpretive Statements SINUS RHYTHM WITH SINUS ARRHYTHMIA VOLTAGE CRITERIA FOR LVH [MEETS CRITERIA IN ONE OF: R(aVL), S(V1), R(V5), R(V5/V6)+S(V1)] Compared to ECG 02/09/2023 14:54:51 No significant changes Electronically Signed On 11-08-2023 20:14:32 CDT by Gene Shane M.D. [id number]
--- NOTE | 2023-11-07 00:15 | ED_ITS ---
HPI - Chest Pain 2 General: Chief Complaint: Chest Pain Stated Complaint: CP Time Seen by Provider: 11/07/23 00:05 Source: patient Mode of arrival: ambulatory Limitations: no limitations History of Present Illness: 68-year-old male states he started havin g a burning sensation in his chest started roughly 2 hours ago at rest. Patient given nitro aspirin around states his pains improved states now 1 out of 10 he denies any worsening factors. Denies any severe dyspnea. Associated symptoms: Deny abdominal pain, dyspnea, fever(s), nausea or vomiting Review of Systems 2 Const: Denies: fever(s), chills, body aches or change in appetite ENMT: Denies: throat pain or dental pain Card: Reports: chest pain Resp: Denies: dyspnea GI: Denies: abdominal pain, nausea, vomiting or diarrhea : Denies: dysuria Musc: Denies: neck pain or back pain Skin/Breast: Denies: rash Neuro: Denies: headache(s) PFSH ED 2 PFSH: Medical History (Updated 11/07/23 @ 02:49 by Vince Bryant MD) Obstructive sleep apnea Chronic back pain COPD (chronic obstructive pulmonary disease) Lung cancer Schizophrenia Surgical History H/O hernia repair Social History Smoking and tobacco/nicotine status: current every day tobacco/nicotine user Physical Exam 2 Const: COMMON NORMALS: no acute distress, patient oriented x3 and healthy appearing HENMT: COMMON NORMALS: normocephalic and atraumatic HEAD & SCALP: n ormocephalic and atraumatic Eye: COMMON NORMALS: Equal, round and reactive pupils present and EOMs intact bilaterally PUPIL: Yes Equal, round and reactive pupils present Neck/C-Spine: COMMON NORMALS: full ROM and supple Chest: COMMONS NORMALS: normal inspection of the chest and normal palpation of entire chest wall Resp: COMMON NORMALS: normal respiratory effort, No retractions, No use of accessory muscles and clear to auscultation bilaterally AUSCULTATION: clear to auscultation bilaterally Cardio: COMMON NORMALS: regular rate, regular rhythm and No murmurs present (Cardio) RATE: regular rate RHYTHM: regular rhythm GI: COMMON NORMALS: Normal to inspection, nondistended, normoactive bowel sounds present, Soft to palpation, non-tender and no masses PALPATION: Yes Soft to palpation Extremity: COMMON NORMALS: normal to inspection and full ROM Neuro: COMMON NORMALS: patient oriented x3, moves all extremities and no focal motor deficits Psych: COMMON NORMALS: mental status grossly normal, Normal thought process present and cooperative THOUGHT PROCESS: Normal thought process present Skin: COMMON NORMALS: no rashes or lesions noted and no wounds GENERAL SKIN EXAM: no rashes or lesions noted Course 2 Vital Signs: Vital signs: Vital Signs Temperature 98 F 11/07/23 00:01 Pulse Rate 69 11/07/23 00:34 Respiratory Rate 18 11/07/23 00:34 Blood Pressure 137/65 11/07/23 00:34 Pulse Oximetry 96 11/07/23 00:34 Oxygen Delivery Me thod Room Air 11/07/23 00:34 Oxygen Flow Rate 2 11/07/23 00:01 MDM - Chest Pain Medical Decision Making Patient presents here with chest pain is atypical in nature he has been well- appearing here he is pain-free currently initial repeat troponins are negative EKG is negative no signs of ACS no signs of pulmonary embolism or aortic dissection he is to follow-up with PCP and return if worsening. Medical Records I reviewed the patient's medical records. Lab Data I reviewed the patient's lab results. 11/07/23 00:16 11/07/23 00:16 Radiology Impressions Chest X-Ray 11/07/23 00:04 IMPRESSION: 1. Increased basilar density compared to prior study likely related to decreased lung volumes with basilar atelectatic change. 2. No definitive acute cardiopulmonary disease. Laboratory Results WBC 5.71 10^3/uL (3.29-11.43) 11/07/23 00:16 RBC 4.21 10^6/uL (3.85-5.65) 11/07/23 00:16 Hgb 12.70 g/dL (11.27-16.99) 11/07/23 00:16 Hct 39.6 % (37-53) 11/07/23 00:16 MCV 94.1 fl (82-101) 11/07/23 00:16 MCH 30.2 pg (27-33) 11/07/23 00:16 MCHC 32.1 g/dL (30-55) 11/07/23 00:16 RDW 13.9 % (12.1-15.1) 11/07/23 00:16 Plt Count 249 10^3/cmm (157-399) 11/07/23 00:16 MPV 10.4 fL (7.4-10.4) 11/07/23 00:16 Neut % (Auto) 60.7 % 11/07/23 00:16 Lymph % (Auto) 26.8 % 11/07/23 00:16 Haines % (Auto) 8.6 % 11/07/23 00:16 Eos % (Auto) 3.2 % 11/07/23 00:16 Baso % (Auto) 0.5 % 11/07/23 00:16 Neut # (Auto) 3.47 10^3/uL (1.8-7.7) 11/07/23 00:16 Lymph # (Auto) 1.5 10^3/uL (0.8-4.8) 11/07/23 00:16 Haines # (Auto) 0.5 10^3/uL (0.2-0.9) 11/07/23 00:16 Eos # (Auto) 0.2 10^3/uL (0.0-0.8) 11/07/23 00:16 Baso # (Auto) 0.0 10^3/uL (0.0-0.1) 11/07/23 00:16 Nucleated RBC % (auto) 0 % 11/07/23 00:16 Nucleated RBCs # 0.0 /100WBC 11/07/23 00:16 Sodium 144 mmol/L (136-145) 11/07/23 00:16 Potassium 3.7 mmol/L (3.5-5.1) 11/07/23 00:16 Chloride 108 mmol/L (98-107) H 11/07/23 00:16 Carbon Dioxide 27 mmol/L (22-29) 11/07/23 00:16 Anion Gap 12.7 (5-19) 11/07/23 00:16 BUN 22 mg/dL (8-23) 11/07/23 00:16 Creatinine 0.7 mg/dL (0.7-1.2) 11/07/23 00:16 GFR Calculation 112.8 mL/min (90-130) 11/07/23 00:16 Glucose 99 mg/dL (65-115) 11/07/23 00:16 Calculated Osmolality 301 mOsm/kg (285-295) H 11/07/23 00:16 Calcium 8.9 mg/dL (8.5-10.5) 11/07/23 00:16 Total Bilirubin 0.4 mg/dL (0.15-1.2) 11/07/23 00:16 AST 14 U/L (0-40) 11/07/23 00:16 ALT 12 U/L (0-41) 11/07/23 00:16 Alkaline Phosphatase 86 U/L (40-130) 11/07/23 00:16 Troponin T Baseline 9 ng/L (0-15) 11/07/23 00:16 Troponin T 120 Minute 9.27 ng/L (0-15) 11/07/23 02:13 Delta Troponin T 0.27 ABS# (0-10) 11/07/23 02:13 Total Protein 6.4 g/dL (6.6-8.7) L 11/07/23 00:16 Albumin 3.9 g/dL (3.5-5.2) 11/07/23 00:16 Globulin 2.5 g/dL (1.3-4.6) 11/07/23 00:16 Lipase 24 U/L (13-60) 11/07/23 00:16 All radiology interpretation(s) finalized by discharge EKG Data EKG 1: I personally reviewed and interpreted this EKG as follows: EKG interpretation date: 11/07/23 EKG interpretation time: 00:09 Interpretation: nsr hr [address] elevation qrs 85 qtc 418 Discharge Plan Discharge Patient Disposition: Home Clinical Impression: Chest pain Condition: Stable Prescriptions: No Action cyclobenzaprine 10 mg tablet 10 mg PO TID PRN (Reason: muscle spasm) Qty: 30 0RF hydrocodone-acetaminophen 5-325 mg tablet 1 tab PO Q4H PRN (Reason: pain) 7 Days Qty: 20 0RF albuterol sulfate 2.5 mg /3 mL (0.083 %) Solution For Nebulization 2.5 mg INHALATION QID PRN (Reason: Shortness Of Breath Or Wheezing) albuterol sulfate 90 mcg/actuation Hfa Aerosol Inhaler 2 puff INHALATION 6XD PRN (Reason: Shortness Of Breath Or Wheezing) aspirin 81 mg tablet,delayed release (DR/EC) 81 mg PO DAILY Qty: 30 0RF isosorbide mononitrate 30 mg tablet extended release 24 hr 30 mg PO DAILY Qty: 30 0RF Discharge Orders: Discharge ED (Routine); Ordered 11/07/23 Ordered By: Vince Bryant Referrals: Laguna,LUIS MIGUEL De La VegaN [Primary Care Provider] - 4-7 days Discharge Diet: Advance as tolerated Discharge Activity: Resume usual activity Patient Instructions: Chest Pain (ED) Coding Level of Care Code ED Farm Equipment Operator for Italo Feliciano
[2023-11-07 00:34] VITALS: BP 137/65; PULSE 69; RESP 18; O2SAT 96
[2023-11-07] MEDS: lidocaine 2% viscous 15 ML, aluminum-mag hydrox-simethicon 30 ML, sucralfate oral liq 1 GM PO (00:34)
[2023-11-07 00:43] LABS: Basophils % 0.5 %; Eosinophils # 0.2 10^3/uL (0.0-0.8); Eosinophils % 3.2 %; Hematocrit 39.6 % (37-53); Lymphocytes # 1.5 10^3/uL (0.8-4.8); Lymphocytes % 26.8 %; Mean Corpuscular HGB Conc 32.1 g/dL (30-55); Mean Corpuscular Hemoglobin 30.2 pg (27-33); Mean Corpuscular Volume 94.1 fl (82-101); Mean Platelet Volume 10.4 fL (7.4-10.4); Monocytes # 0.5 10^3/uL (0.2-0.9); Monocytes % 8.6 %; Neutrophils # 3.47 10^3/uL (1.8-7.7); Neutrophils % 60.7 %; Nucleated Red Blood Cells % 0 %; Platelet Count 249 10^3/cmm (157-399); Red Blood Count 4.21 10^6/uL (3.85-5.65); Red Cell Distribution Width 13.9 % (12.1-15.1); Troponin(5th) Baseline 9 ng/L (0-15); White Blood Count 5.71 10^3/uL (3.29-11.43)
[2023-11-07 00:47] LABS: Alanine Aminotransferase 12 U/L (0-41); Albumin Level 3.9 g/dL (3.5-5.2); Alkaline Phosphatase 86 U/L (40-130); Anion Gap 12.7 (5-19); Aspartate Amino Transferase 14 U/L (0-40); Blood Urea Nitrogen 22 mg/dL (8-23); Calcium 8.9 mg/dL (8.5-10.5); Carbon Dioxide 27 mmol/L (22-29); Chloride 108 mmol/L (98-107); Globulin 2.5 g/dL (1.3-4.6); Glomerular Filtration Rate 112.8 mL/min (90-130); Glucose 99 mg/dL (65-115); Lipase 24 U/L (13-60); Osmolality Calculated 301 mOsm/kg (285-295); Potassium 3.7 mmol/L (3.5-5.1); Sodium 144 mmol/L (136-145); Total Bilirubin 0.4 mg/dL (0.15-1.2); Total Protein 6.4 g/dL (6.6-8.7)
--- NOTE | 2023-11-07 01:12 | PC.NURSE ---
Pt. placed on BiPap on arrival to ER. Pt. O2 saturation at 95% from 88%.
[2023-11-07 02:47] LABS: Troponin 5 2HR 9.27 ng/L (0-15); Troponin 5 2HR Delta 0.27 ABS# (0-10)
== END 2023-11-07 03:00 | disposition home or self-care (01) ==
PROVIDERS: Emergency Provider Emergency Medicine; PCP Nurse Practitioner Family
DX: R07.9 Chest pain, unspecified (principal); Z79.82 Long term (current) use of aspirin; J44.9 Chronic obstructive pulmonary disease, unspecified; Z85.118 Personal history of other malignant neoplasm of bronchus and lung; Z72.0 Tobacco use
CPT/HCPCS: 36415; 71045; 80053; 83690; 84484; 85025; 93005; 99285

== ENCOUNTER 2023-12-22 11:30 | Emergency (ER) | payer OTHER, MEDICAID, SELFPAY ==
[2023-12-22] VITALS (8 sets, daily range): BP systolic 133–150; BP diastolic 65–88; PULSE 54–78; RESP 12–23; TEMP 36.4; O2SAT 90–97; BMI 22.4
--- NOTE | 2023-12-22 11:36 | XR_ITS ---
WS: [id number] XR chest 1V portable [id number] REASON FOR EXAM: Chest pain FINDINGS: Previously described left lower lung opacities have resolved. The chest is otherwise unchanged compar ed to 11/07/2023. No acute pulmonary parenchymal or pleural abnormality is identified. XR/XR chest 1V portable [id number] IMPRESSION: No acute chest abnormality at this time. Previously described abnormality in th e left lower lung has resolved.
--- NOTE | 2023-12-22 11:43 | ECG_ITS ---
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 Measurements Intervals [place] Rate: 54 P: 70 VT: 157 QRS: 77 QRSD: 88 T: 77 QT: 442 QTc: 420 Interpretive Statements SINUS BRADYCARDIA VOLTAGE CRITERIA FOR LVH [MEETS CRITERIA IN ONE OF: R(aVL), S(V1), R(V5), R(V5/V6)+S(V1)] Compared to ECG 11/07/2023 00:09:36 Sinus rhythm no longer present Sinus arrhythmia no longer present Electronically Signed On 12-22-2023 15:28:46 CDT by Kalyan Hernandez M.D. [id number]
[2023-12-22 12:05] LABS: Basophils % 0.4 %; Eosinophils # 0.1 10^3/uL (0.0-0.8); Eosinophils % 1.8 %; Lymphocytes # 2.1 10^3/uL (0.8-4.8); Lymphocytes % 27.5 %; Mean Corpuscular HGB Conc 31.6 g/dL (30-55); Mean Corpuscular Volume 94.9 fl (82-101); Mean Platelet Volume 10.3 fL (7.4-10.4); Monocytes # 0.7 10^3/uL (0.2-0.9); Monocytes % 9.5 %; Neutrophils % 60.7 %; Nucleated Red Blood Cells % 0 %; Platelet Count 254 10^3/cmm (157-399); Red Blood Count 4.53 10^6/uL (3.85-5.65); Red Cell Distribution Width 13.6 % (12.1-15.1); White Blood Count 7.59 10^3/uL (3.29-11.43)
--- NOTE | 2023-12-22 12:35 | W.ED.CHESTPA ---
HPI - Chest Pain General: Chief Complaint: Chest Pain Stated Complaint: CP Time Seen by Provider: 12/22/23 11:33 History of Present Illness: 68-year-old man with a history of tobacco abuse and COPD who presents the emergency room with chest pain by ambulance. He says he was taking a nap and awoke from sleep with a pressure in his left chest that went to his left arm. EMS reports that it was reproducible by palpation but got better with nitroglycerin. He has had chronic issues with chest pain but has never had a stent or known heart attack. No new cough. No increased shortness of breath. No altered mental status. No focal motor deficits. Review of Systems Narrative: Constitutional symptoms: Negative except as documented in HPI. Skin symptoms: Negative except as documented in HPI. Eye symptoms: Negative except as documented in HPI. ENMT symptoms: Negative except as documented in HPI. Respiratory symptoms: Negative except as documented in HPI. Cardiovascular symptoms: Negative except as documented in HPI. Gastrointestinal symptoms: Negative except as documented in HPI. Genitourinary symptoms: Negative except as documented in HPI. Musculoskeletal symptoms: Negative except as documented in HPI. Neurologic symptoms: Negative except as documented in HPI. Psychiatric symptoms: Negative except as documented in HPI. Endocrine symptoms: Negative except as documented in HPI. [facility] ED PFSH: Medical History (Updated 12/22/23 @ 15:02 by Evonne Ramirez MD) Obstructive sleep apnea Chronic back pain COPD (chronic obstructive pulmonary disease) Lung cancer Schizophrenia Surgical History H/O hernia repair Social History Smoking and tobacco/nicotine status: current every day tobacco/nicotine user Physical Exam Narrative: EXAM NARRATIVE: General: Alert, no acute distress. Skin: Warm, dry. Head: Normocephalic, atraumatic. Neck: Supple, trachea midline. Eye: Extraocular movements are intact. Ears, nose, mouth and throat: mucosa moist. Cardiovascular: Regular, Normal peripheral perfusion. Respiratory: Lungs are clear to auscultation, respirations are non-labored, breath sounds are equal, Symmetrical chest wall expansion. Gastrointestinal: Soft, Nontender, Non distended Musculoskeletal: Normal ROM, no deformity. Neurological: Alert and oriented, No focal neurological deficit observed. Psychiatric: Cooperative, appropriate mood & affect. Course Vital Signs: Vital signs: Vital Signs Temperature 97.5 F L 12/22/23 11:37 Pulse Rate 55 L 12/22/23 14:30 Respiratory Rate 14 12/22/23 14:30 Blood Pressure 150/65 12/22/23 14:30 Pulse Oximetry 95 12/22/23 14:30 Oxygen Delivery Me thod Room Air 12/22/23 14:30 MDM - Chest Pain Medical Decision Making Differential diagnosis for patient with chest pain includes but is not limited to and based on the above HPI, review of systems and physical exam: Pneumonia. unstable angina. angina. Acute coronary syndrome / [place]. Pulmonary embolism. Costochondritis / musculoskeletal. Pleurisy. Pericarditis. Esophageal spasm. Pancreatis. Cholecystitis. Orders placed to evaluate differential diagnosis based on the above differential, HPI and physical exam EKG: Time 11:43 AM. Rate 54. Sinus bradycardia, No ST-T changes, no ectopy, normal MO & QRS intervals, This was reviewed and interpreted by myself the ER physician at 11:45 AM. Repeat EKG: Time 1359. Rate 57. Sinus bradycardia, No ST-T changes, no ectopy, normal MO & QRS intervals, This was reviewed and interpreted by myself the ER physician at 1402. No significant changes other than rate is a 57 versus 54 earlier. Lab Review: Laboratory results were reviewed and interpreted by myself the emergency room physician. Lab work is unremarkable. No leukocytosis. No anemia. No renal failure. Serial troponins are negative. Serial EKGs are negative as well. Chest x-ray: No acute process. No infiltrate. No pneumothorax. This was reviewed and interpreted by myself the ER physician. I reviewed the patient's medical record. Patient has had multiple visits to the emergency room for chest pain in the past. Reexamination: Patient remained stable. No increased work of breathing. No altered mental status. Assessment and plan: Noncardiac chest pain Tobacco dependence COPD - Discharged home - Discussed plan with patient. Answered any questions. - Evaluation and treatment of this problem were appropriate in the emergency setting. Lab Data 12/22/23 11:51 12/22/23 11:51 Radiology Impressions Chest X-Ray 12/22/23 11:36 IMPRESSION: No acute chest abnormality at this time. Previously described abnormality in the left lower lung has resolved. Laboratory Results WBC 7.59 10^3/uL (3.29-11.43) 12/22/23 11:51 RBC 4.53 10^6/uL (3.85-5.65) 12/22/23 11:51 Hgb 13.60 g/dL (11.27-16.99) 12/22/23 11:51 Hct 43.0 % (37-53) 12/22/23 11:51 MCV 94.9 fl (82-101) 12/22/23 11:51 MCH 30.0 pg (27-33) 12/22/23 11:51 MCHC 31.6 g/dL (30-55) 12/22/23 11:51 RDW 13.6 % (12.1-15.1) 12/22/23 11:51 Plt Count 254 10^3/cmm (157-399) 12/22/23 11:51 MPV 10.3 fL (7.4-10.4) 12/22/23 11:51 Neut % (Auto) 60.7 % 12/22/23 11:51 Lymph % (Auto) 27.5 % 12/22/23 11:51 [place] % (Auto) 9.5 % 12/22/23 11:51 Eos % (Auto) 1.8 % 12/22/23 11:51 Baso % (Auto) 0.4 % 12/22/23 11:51 Neut # (Auto) 4.60 10^3/uL (1.8-7.7) 12/22/23 11:51 Lymph # (Auto) 2.1 10^3/uL (0.8-4.8) 12/22/23 11:51 [place] # (Auto) 0.7 10^3/uL (0.2-0.9) 12/22/23 11:51 Eos # (Auto) 0.1 10^3/uL (0.0-0.8) 12/22/23 11:51 Baso # (Auto) 0.0 10^3/uL (0.0-0.1) 12/22/23 11:51 Nucleated RBC % (auto) 0 % 12/22/23 11:51 Nucleated RBCs # 0.0 /100WBC 12/22/23 11:51 Sodium 140 mmol/L (136-145) 12/22/23 11:51 Potassium 4.3 mmol/L (3.5-5.1) 12/22/23 11:51 Chloride 103 mmol/L (98-107) 12/22/23 11:51 Carbon Dioxide 25 mmol/L (22-29) 12/22/23 11:51 Anion Gap 16.3 (5-19) 12/22/23 11:51 BUN 15 mg/dL (8-23) 12/22/23 11:51 Creatinine 0.7 mg/dL (0.7-1.2) 12/22/23 11:51 GFR Calculation 112.8 mL/min (90-130) 12/22/23 11:51 Glucose 99 mg/dL (65-115) 12/22/23 11:51 Calculated Osmolality 291 mOsm/kg (285-295) 12/22/23 11:51 Calcium 9.1 mg/dL (8.5-10.5) 12/22/23 11:51 Total Bilirubin 0.3 mg/dL (0.15-1.2) 12/22/23 11:51 AST 14 U/L (0-40) 12/22/23 11:51 ALT 12 U/L (0-41) 12/22/23 11:51 Alkaline Phosphatase 88 U/L (40-130) 12/22/23 11:51 Troponin T Baseline 9 ng/L (0-15) 12/22/23 11:51 Troponin T 120 Minute 9.97 ng/L (0-15) 12/22/23 13:51 Delta Troponin T 0.97 ABS# (0-10) 12/22/23 13:51 C-Reactive Protein 6.6 mg/L (0.0-4.9) H 12/22/23 11:51 NT-Pro-B Natriuret Pep 137 pg/mL (0-125) H 12/22/23 11:51 Total Protein 6.3 g/dL (6.6-8.7) L 12/22/23 11:51 Albumin 3.9 g/dL (3.5-5.2) 12/22/23 11:51 Globulin 2.4 g/dL (1.3-4.6) 12/22/23 11:51 All radiology interpretation(s) finalized by discharge Discharge Plan Discharge Patient Disposition: Home Clinical Impression: Non-cardiac chest pain, Tobacco dependence Condition: Stable Prescriptions: No Action cyclobenzaprine 10 mg tablet 10 mg PO TID PRN (Reason: muscle spasm) Qty: 30 0RF hydrocodone-acetaminophen 5-325 mg tablet 1 tab PO Q4H PRN (Reason: pain) 7 Days Qty: 20 0RF albuterol sulfate 90 mcg/actuation Hfa Aerosol Inhaler 2 puff INHALATION 6XD PRN (Reason: Shortness Of Breath Or Wheezing) aspirin 81 mg tablet,delayed release (DR/EC) 81 mg PO DAILY Qty: 30 0RF isosorbide mononitrate 30 mg tablet extended release 24 hr 30 mg PO DAILY Qty: 30 0RF metoprolol succinate 50 mg tablet extended release 24 hr 50 mg PO DAILY sildenafil 100 mg tablet 100 mg PO DAILY PRN (Reason: Erectile Dysfunction) levothyroxine 75 mcg tablet 75 mcg PO QAM tamsulosin 0.4 mg capsule 0.4 mg PO DAILY diclofenac sodium 75 mg tablet,delayed release (DR/EC) 75 mg PO BID PRN (Reason: INFLAMATORY PAIN) Discharge Orders: Discharge ED (Routine); Ordered 12/22/23 Ordered By: Evonne Ramirez Referrals: Yolette Laguna APN [Primary Care Provider] - Discharge Diet: Usual diet Discharge Activity: Increase activity as tolerated Patient Instructions: Noncardiac Chest Pain (ED) Activity Restrictions/Additional Instructions: Thank you for choosing [facility] for your healthcare needs today. Please realize this is an emergency room and that we are providing you with a medical screening exam and this may not be complete and all inclusive of all the testing and or work up that you may need to determine your ailment or severity of your illness. You have been screened and evaluated and felt safe for discharge. Health conditions do change or evolve sometimes and as such it is important that you follow up with your Primary Doctor to be re checked, 3-5 days is a general good time frame for follow up. You are always welcome to return to the ED for re assessment if your symptoms are worsening or you have new concerns Coding Level of Care Code ED African Studies Professor for Italo Feliciano
[2023-12-22 12:36] LABS: Troponin(5th) Baseline 9 ng/L (0-15)
[2023-12-22 12:48] LABS: Alanine Aminotransferase 12 U/L (0-41); Albumin Level 3.9 g/dL (3.5-5.2); Alkaline Phosphatase 88 U/L (40-130); Anion Gap 16.3 (5-19); Aspartate Amino Transferase 14 U/L (0-40); Blood Urea Nitrogen 15 mg/dL (8-23); C Reactive Protein 6.6 mg/L (0.0-4.9); Calcium 9.1 mg/dL (8.5-10.5); Carbon Dioxide 25 mmol/L (22-29); Chloride 103 mmol/L (98-107); Creatinine Clr Calc Pharmacy 104.1545; Globulin 2.4 g/dL (1.3-4.6); Glomerular Filtration Rate 112.8 mL/min (90-130); Glucose 99 mg/dL (65-115); NT Pro B Type Natriuretic Pept 137 pg/mL (0-125); Osmolality Calculated 291 mOsm/kg (285-295); Potassium 4.3 mmol/L (3.5-5.1); Sodium 140 mmol/L (136-145); Total Bilirubin 0.3 mg/dL (0.15-1.2); Total Protein 6.3 g/dL (6.6-8.7)
--- NOTE | 2023-12-22 13:27 | PC.NURSE ---
nitro paste removed.
--- NOTE | 2023-12-22 13:37 | ECG_ITS ---
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 Measurements Intervals [place] Rate: 57 P: 73 [place]: 154 QRS: 77 QRSD: 90 T: 76 QT: 449 QTc: 440 Interpretive Statements SINUS BRADYCARDIA WITH SINUS ARRHYTHMIA VOLTAGE CRITERIA FOR LVH [MEETS CRITERIA IN ONE OF: R(aVL), S(V1), R(V5), R(V5/V6)+S(V1)] Compared to ECG 12/22/2023 11:43:26 No significant changes Electronically Signed On 12-22-2023 15:29:38 CDT by Kalyan Hernandez M.D. [id number]
[2023-12-22 14:19] LABS: Troponin 5 2HR 9.97 ng/L (0-15); Troponin 5 2HR Delta 0.97 ABS# (0-10)
--- NOTE | 2023-12-22 14:52 | PC.PHAR ---
PT STATES SOMEONE MOVED OUT OF THE HOUSE AND THINKS THEY TOOK ALL HIS MEDICATIONS WITH THEM. MOST CURRENT FILLS WERE AT [facility] AND LAST FILL DATES WERE IN JULY.
== END 2023-12-22 15:23 | disposition home or self-care (01) ==
PROVIDERS: Emergency Provider Emergency Medicine; PCP Nurse Practitioner Family
DX: R07.89 Other chest pain (principal); Z79.82 Long term (current) use of aspirin; R00.1 Bradycardia, unspecified; J44.9 Chronic obstructive pulmonary disease, unspecified; Z85.118 Personal history of other malignant neoplasm of bronchus and lung; Z72.0 Tobacco use
CPT/HCPCS: 36415; 71045; 80053; 83880; 84484; 85025; 86140; 93005; 99285

== ENCOUNTER 2024-03-29 10:48 | Inpatient (IN) | payer MEDICARE, MEDICAID, SELFPAY ==
[2024-03-29] VITALS (15 sets, daily range): BP systolic 98–158; BP diastolic 62–92; PULSE 65–86; RESP 15–19; TEMP 36.6–36.7; O2SAT 93–97; BMI 21.2
--- NOTE | 2024-03-29 10:51 | ECG_ITS ---
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 Measurements Intervals [place] Rate: 73 P: 78 [place]: 133 QRS: 55 QRSD: 90 T: 16 QT: 387 QTc: 428 Interpretive Statements SINUS RHYTHM VOLTAGE CRITERIA FOR LVH Otherwise normal EKG Compared to ECG 12/22/2023 13:59:33 No significant change Electronically Signed On 03-29-2024 12:17:45 CDT by Brittney Garcia M.D. [id number]
--- NOTE | 2024-03-29 10:57 | XRR_ITS ---
PROCEDURE INFORMATION: Exam: XR Chest Exam date and time: 03/29/2024 11:22 AM Age: 69 years old Clinical indication: Pain; Angina pectoris; Additional info: Cp TECHNIQUE: Imaging protocol: Radiologic exam of the chest. Views: 1 view. COMPARISON: CR XR chest 1V portable [id number] 12/22/2023 11:44 AM FINDINGS: Lungs: Unremarkable. No consolidation. Pleural spaces: Unremarkable. No pleural effusion. No pneumothorax. Heart/Mediastinum: Unremarkable. No cardiomegaly. Bones/joints: Unremarkable. XR/XR chest 1V portable [id number] IMPRESSION: No acute findings.
--- NOTE | 2024-03-29 11:08 | ED_ITS ---
HPI - Chest Pain 2 General: Chief Complaint: Chest Pain Stated Complaint: chest pain Time Seen by Provider: 03/29/24 11:03 Source: patient Mode of arrival: ambulatory Limitations: no limitations History of Present Illness: 69-year-old male who states that he has been having chest pain over the last 3 to 4 hours. He states it has been a pressure pain radiates to his neck and left arm. He has no known history of heart disease is a longtime smoker has a history of hypertension. States pain is currently a 3 out of 10 denies any worse or improving factors. Denies any vomiting or diarrhea denies any abdominal pain Associated symptoms: Deny abdominal pain, dyspnea, fever(s), nausea or vomiting Related Data Home Medications Medication Instructions Recorded Confirmed albuterol sulfate 90 mcg/actuation 2 puff inhalation 6XD PRN 01/23/23 03/29/24 aerosol inhaler Shortness Of Breath Or Wheezing diclofenac sodium 75 mg 75 mg PO BID PRN INFLAMATORY PAIN 12/22/23 03/29/24 tablet,delayed release levothyroxine 75 mcg tablet 75 mcg PO QAM 12/22/23 03/29/24 metoprolol succinate 50 mg 50 mg PO DAILY 12/22/23 03/29/24 tablet,extended release 24 hr sildenafil 100 mg tablet 100 mg PO DAILY PRN Erectile 12/22/23 03/29/24 Dysfunction tamsulosin 0.4 mg capsule 0.4 mg PO DAILY 12/22/23 03/29/24 Previous Rx's Medication Instructions Recorded aspirin 81 mg tablet,delayed 81 mg PO DAILY #30 tabs 01/23/23 release isosorbide mononitrate 30 mg 30 mg PO DAILY #30 tabs 01/23/23 tablet,extended release 24 hr cyclobenzaprine 10 mg tablet 10 mg PO TID PRN muscle spasm #30 06/02/23 tabs Allergies Allergy/AdvReac Type Severity Reaction Status Date / Time Sulfa (Sulfonamide Allergy ALGY-Rash Verified 12/22/23 11:48 Antibiotics) Review of Systems 2 Const: Denies: fever(s), chills, body aches or change in appetite ENMT: Denies: throat pain or dental pain Card: Reports: chest pain Resp: Denies: dyspnea GI: Denies: abdominal pain, nausea, vomiting or diarrhea Musc: Denies: neck pain or back pain Skin/Breast: Denies: rash Neuro: Denies: headache(s) PFSH ED 2 PFSH: Medical History (Updated 03/29/24 @ 12:36 by Vince Bryant MD) Obstructive sleep apnea Chronic back pain COPD (chronic obstructive pulmonary disease) Lung cancer Schizophrenia Surgical History H/O hernia repair Social History Smoking and tobacco/nicotine status: current every day tobacco/nicotine user Physical Exam 2 Const: COMMON NORMALS: patient oriented x3 HENMT: COMMON NORMALS: normocephalic and atraumatic HEAD & SCALP: n ormocephalic and atraumatic Eye: COMMON NORMALS: Equal, round and reactive pupils present and EOMs intact bilaterally PUPIL: Yes Equal, round and reactive pupils present Neck/C-Spine: COMMON NORMALS: full ROM and supple Chest: COMMONS NORMALS: normal inspection of the chest and normal palpation of entire chest wall Resp: COMMON NORMALS: normal respiratory effort, No retractions, No use of accessory muscles and clear to auscultation bilaterally AUSCULTATION: clear to auscultation bilaterally Cardio: COMMON NORMALS: regular rate, regular rhythm and No murmurs present (Cardio) RATE: regular rate RHYTHM: regular rhythm Extremity: COMMON NORMALS: normal to inspection and full ROM Neuro: COMMON NORMALS: patient oriented x3, moves all extremities and no focal motor deficits Psych: COMMON NORMALS: mental status grossly normal, Normal thought process present and cooperative THOUGHT PROCESS: Normal thought process present Skin: COMMON NORMALS: no rashes or lesions noted and no wounds GENERAL SKIN EXAM: no rashes or lesions noted Course 2 Vital Signs: Vital signs: Vital Signs Temperature 98.1 F 03/29/24 10:54 Pulse Rate 69 03/29/24 12:00 Respiratory Rate 16 03/29/24 12:00 Blood Pressure 140/89 03/29/24 12:00 Pulse Oximetry 95 03/29/24 12:00 Oxygen Delivery Me thod Room Air 03/29/24 12:00 MDM - Chest Pain Medical Decision Making Patient presents for chest pain he does have EKG changes with T wave inversion in lead III no ST elevation his initial troponin here is negative he has multiple risk factors will admit for ACS rule out Medical Records I reviewed the patient's medical records. Lab Data I reviewed the patient's lab results. 03/29/24 11:13 03/29/24 11:13 Radiology Impressions Chest X-Ray 03/29/24 10:57 IMPRESSION: No acute findings. Laboratory Results WBC 6.30 10^3/uL (3.29-11.43) 03/29/24 11:13 RBC 4.80 10^6/uL (3.85-5.65) 03/29/24 11:13 Hgb 14.60 g/dL (11.27-16.99) 03/29/24 11:13 Hct 44.4 % (37-53) 03/29/24 11:13 MCV 92.5 fl (82-101) 03/29/24 11:13 MCH 30.4 pg (27-33) 03/29/24 11:13 MCHC 32.9 g/dL (30-55) 03/29/24 11:13 RDW 13.4 % (12.1-15.1) 03/29/24 11:13 Plt Count 277 10^3/cmm (157-399) 03/29/24 11:13 MPV 10.5 fL (7.4-10.4) H 03/29/24 11:13 Neut % (Auto) 55.2 % 03/29/24 11:13 Lymph % (Auto) 32.2 % 03/29/24 11:13 [place] % (Auto) 9.8 % 03/29/24 11:13 Eos % (Auto) 1.9 % 03/29/24 11:13 Baso % (Auto) 0.6 % 03/29/24 11:13 Neut # (Auto) 3.47 10^3/uL (1.8-7.7) 03/29/24 11:13 Lymph # (Auto) 2.0 10^3/uL (0.8-4.8) 03/29/24 11:13 [place] # (Auto) 0.6 10^3/uL (0.2-0.9) 03/29/24 11:13 Eos # (Auto) 0.1 10^3/uL (0.0-0.8) 03/29/24 11:13 Baso # (Auto) 0.0 10^3/uL (0.0-0.1) 03/29/24 11:13 Nucleated RBC % (auto) 0 % 03/29/24 11:13 Nucleated RBCs # 0.0 /100WBC 03/29/24 11:13 PT 12.50 SECONDS (12.1-14.9) 03/29/24 11:13 INR 0.91 (0.8-1.2) 03/29/24 11:13 Sodium 140 mmol/L (136-145) 03/29/24 11:13 Potassium 3.9 mmol/L (3.5-5.1) 03/29/24 11:13 Chloride 102 mmol/L (98-107) 03/29/24 11:13 Carbon Dioxide 27 mmol/L (22-29) 03/29/24 11:13 Anion Gap 14.9 (5-19) 03/29/24 11:13 BUN 16 mg/dL (8-23) 03/29/24 11:13 Creatinine 0.7 mg/dL (0.7-1.2) 03/29/24 11:13 GFR Calculation 112.5 mL/min (90-130) 03/29/24 11:13 Glucose 96 mg/dL (65-115) 03/29/24 11:13 Calculated Osmolality 291 mOsm/kg (285-295) 03/29/24 11:13 Calcium 9.1 mg/dL (8.5-10.5) 03/29/24 11:13 Total Bilirubin 0.3 mg/dL (0.15-1.2) 03/29/24 11:13 AST 14 U/L (0-40) 03/29/24 11:13 ALT 11 U/L (0-41) 03/29/24 11:13 Alkaline Phosphatase 86 U/L (40-130) 03/29/24 11:13 Troponin T Baseline 9 ng/L (0-15) 03/29/24 11:13 Total Protein 6.3 g/dL (6.6-8.7) L 03/29/24 11:13 Albumin 4.0 g/dL (3.5-5.2) 03/29/24 11:13 Globulin 2.3 g/dL (1.3-4.6) 03/29/24 11:13 Lipase 30 U/L (13-60) 03/29/24 11:13 All radiology interpretation(s) finalized by discharge EKG Data EKG 1: I personally reviewed and interpreted this EKG as follows: EKG interpretation date: 03/29/24 EKG interpretation time: 10:51 Interpretation: nsr hr [address] elevation qrs 90 qtc 413 t wave inversion in leed III Discharge Plan Discharge Patient Disposition: Admitted As Inpatient Clinical Impression: Chest pain Condition: Stable Prescriptions: No Action cyclobenzaprine 10 mg tablet 10 mg PO TID PRN (Reason: muscle spasm) Qty: 30 0RF albuterol sulfate 90 mcg/actuation Hfa Aerosol Inhaler 2 puff INHALATION 6XD PRN (Reason: Shortness Of Breath Or Wheezing) aspirin 81 mg tablet,delayed release (DR/EC) 81 mg PO DAILY Qty: 30 0RF isosorbide mononitrate 30 mg tablet extended release 24 hr 30 mg PO DAILY Qty: 30 0RF metoprolol succinate 50 mg tablet extended release 24 hr 50 mg PO DAILY sildenafil 100 mg tablet 100 mg PO DAILY PRN (Reason: Erectile Dysfunction) levothyroxine 75 mcg tablet 75 mcg PO QAM tamsulosin 0.4 mg capsule 0.4 mg PO DAILY diclofenac sodium 75 mg tablet,delayed release (DR/EC) 75 mg PO BID PRN (Reason: INFLAMATORY PAIN) Referrals: Laguna,HUMBERTO De La Vega [Primary Care Provider] - Coding Level of Care Code ED Plant 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
[2024-03-29] MEDS: aspirin 81 mg Chew Tablet 324 MG PO (11:15)
[2024-03-29] MEDS: nitroglycerin 0.4 mg sublingual Tablet SUBLINGUAL (11:15)
--- NOTE | 2024-03-29 11:44 | PC.PHAR ---
patient confirms all his medication, however last fill dates were from july 2023 so patient should very much so be out of medications it does show him as self pay' in his demographics so he could just be paying out of pocket
[2024-03-29 11:46] LABS: Basophils % 0.6 %; Eosinophils # 0.1 10^3/uL (0.0-0.8); Eosinophils % 1.9 %; Hematocrit 44.4 % (37-53); Lymphocytes % 32.2 %; Mean Corpuscular HGB Conc 32.9 g/dL (30-55); Mean Corpuscular Hemoglobin 30.4 pg (27-33); Mean Corpuscular Volume 92.5 fl (82-101); Mean Platelet Volume 10.5 fL (7.4-10.4); Monocytes # 0.6 10^3/uL (0.2-0.9); Monocytes % 9.8 %; Neutrophils # 3.47 10^3/uL (1.8-7.7); Neutrophils % 55.2 %; Nucleated Red Blood Cells % 0 %; Platelet Count 277 10^3/cmm (157-399); Red Cell Distribution Width 13.4 % (12.1-15.1)
[2024-03-29 11:49] LABS: INR 0.91 (0.8-1.2)
[2024-03-29 11:56] LABS: Troponin(5th) Baseline 9 ng/L (0-15)
[2024-03-29 11:57] LABS: Alanine Aminotransferase 11 U/L (0-41); Alkaline Phosphatase 86 U/L (40-130); Aspartate Amino Transferase 14 U/L (0-40); Blood Urea Nitrogen 16 mg/dL (8-23); Calcium 9.1 mg/dL (8.5-10.5); Carbon Dioxide 27 mmol/L (22-29); Chloride 102 mmol/L (98-107); Creatinine Clr Calc Pharmacy 100.4475; Globulin 2.3 g/dL (1.3-4.6); Glomerular Filtration Rate 112.5 mL/min (90-130); Glucose 96 mg/dL (65-115); Lipase 30 U/L (13-60); Osmolality Calculated 291 mOsm/kg (285-295); Sodium 140 mmol/L (136-145); Total Bilirubin 0.3 mg/dL (0.15-1.2); Total Protein 6.3 g/dL (6.6-8.7)
[2024-03-29 11:58] LABS: Anion Gap 14.9 (5-19); Potassium 3.9 mmol/L (3.5-5.1)
--- NOTE | 2024-03-29 12:43 | ECG_ITS ---
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 Measurements Intervals [place] Rate: 64 P: 62 [place]: 144 QRS: 60 QRSD: 92 T: 31 QT: 405 QTc: 421 Interpretive Statements SINUS RHYTHM VOLTAGE CRITERIA FOR LVH [MEETS CRITERIA IN ONE OF: R(aVL), S(V1), R(V5), Compared to ECG 03/29/2024 10:51:50 No significant changes Electronically Signed On 03-29-2024 16:49:47 CDT by Brittney Garcia M.D. [id number]
--- NOTE | 2024-03-29 13:07 | USCV_ITS ---
Mario Schmitt Age: 69 Gender: M : 1955 Exam Date: 03/29/2024 13:52 Ordering Phys: Jesus Rincon MD Technologist: Exam [place] [facility] [place]: cp BP: 137 / 80 HR: 67 Rhythm: Sinus Technical Quality: Adequate MEASUREMENTS (Male / Female) Normal Values 2D ECHO LV Diastolic Diameter PLAX 4.4 cm 4.2 - 5.9 / 3.9 - 5.3 cm IVS Diastolic Thickness 1.2 cm 0.6 - 1.0 / 0.6 - 0.9 cm IVS Systolic Thickness 1.5 cm LVPW Diastolic Thickness 1.3 cm 0.6 - 1.0 / 0.6 - 0.9 cm LVPW Systolic Thickness 2.0 cm LVOT Diameter 1.8 cm LV Ejection Fraction 2D Teich 68.3 % LV Ejection Fraction MOD 4C 67.4 % LV Ejection Fraction MOD 2C 73.0 % LV Ejection Fraction 2C AL 73.3 % LA Diameter 3.4 cm RA Systolic Volume 4C AL 29.2 ml RA Systolic Volume 4C MOD 29.3 ml LA Sys Volume AL 61.0 cm cubed LA Sys Volume Index AL 30.9 cm cubed/m squared Aorta at Sinotubular Diameter 3.7 cm M-MODE LA Ao Ratio MM 1.0 AV Cusp Separation MM 1.7 cm DOPPLER AV Peak Velocity 141.0 cm/s LVOT Peak Velocity 106.0 cm/s AV Area Cont Eq vti 2.5 cm squared AV Area Cont Eq pk 2.0 cm squared MV Area PHT 3.5 cm squared Mitral E to A Ratio 0.7 TV Peak Velocity 171.3 cm/s TR Peak Velocity 186.0 cm/s TR Peak Gradient 13.8 mmHg TV Peak E Velocity 79.0 cm/s Right Atrial Pressure 3.0 mmHg Pulmonary Artery Systolic Pressu 16.8 mmHg PV Peak Velocity 95.0 cm/s FINDINGS Left Ventricle Mild left ventricular hypertrophy. normal systolic function and wall thickness, with no regional wall motion abnormalities. Estimated LVEF normal at 70%. Right Ventricle Normal right ventricular size and systolic function. Right Atrium Normal right atrial size. Left Atrium Normal left atrial size. Mitral Valve Structurally normal mitral valve. No mitral valve regurgitation. Aortic Valve Structurally normal trileaflet aortic valve. No aortic valve stenosis. Tricuspid Valve Structurally normal tricuspid valve. Trace tricuspid valve regurgitation. Normal RV and pulmonary pressure (18 mmHg). Pulmonic Valve Structurally normal pulmonic valve. Trace pulmonary valve regurgitation. Pericardium No pericardial effusion. Aorta Normal size aortic root and proximal ascending aorta. IVC Normal inferior vena cava. CONCLUSIONS Mild concentric LVH. Normal LV systolic function. LVEF normal 70%. No significant valvular abnormality noted. Normal right heart and pulmonary pressures. Brittney Garcia MD (Electronically Signed) Final Date: 29 March 2024 15:47 S
--- NOTE | 2024-03-29 13:19 | P.HP_ITS ---
Providers/Chief Complaint 2 Admitting Physician: Jesus Rincon MD Primary Care Provider: Yolette Laguna APN Chief Complaint: chest pain History of Present Illness Mario Schmitt is a 69 year old male with a past medical history of with a past medical history of COPD, current smoker, who presents [facility] for chest pain. Patient tells me that for the last week he has been having chest pain, chest pain with exertion, he tells me yesterday he with exertion, he started developing substernal chest pain, radiating up his neck rating down his left arm felt short of breath, improved with rest. He tells me has had multiple ER visits in the last year for chest pain, typically the chest pain subsides, is never really occurred with rest. He tells me this morning he developed chest pain with minimal exertion,/rest, severe substernal chest pain, left side of the chest pressure-like pain rating to the neck, radiating down the arm, does report smoking, he reports he had a stress test some years ago at [facility] which was in normal limits. He does report methamphetamine use, the last use was about a week ago. Denies any cocaine or IV drug abuse. He has not used sildenafil in the last few weeks. Currently the chest pain is 6 out of 10, he tells me that it is increasing currently, denies any shortness of breath normotensive, heart rate 65 respiratory 17 temperature 90.1 O2 sat 97% on room air. His initial troponin was 9. EKG no acute ST-T wave changes. However does report persistent chest pain Review of Systems 2 Const: Denies: fever(s) or chills Card: Reports: chest pain Resp: Reports: dyspnea Neuro: Denies: headache(s), numbness in extremities or weakness in extremities Medications/Allergies Home Medications Medication Instructions Recorded Confirmed Last Taken Type albuterol sulfate 90 mcg/actuation 2 puff inhalation 6XD PRN 01/23/23 03/29/24 03/28/24 History aerosol inhaler Shortness Of Breath Or Wheezing aspirin 81 mg tablet,delayed 81 mg PO DAILY #30 tabs 01/23/23 03/29/24 03/28/24 Rx release isosorbide mononitrate 30 mg 30 mg PO DAILY #30 tabs 01/23/23 03/29/24 03/28/24 Rx tablet,extended release 24 hr cyclobenzaprine 10 mg tablet 10 mg PO TID PRN muscle spasm #30 06/02/23 03/29/24 03/28/24 Rx tabs diclofenac sodium 75 mg 75 mg PO BID PRN INFLAMATORY PAIN 12/22/23 03/29/24 03/28/24 History tablet,delayed release levothyroxine 75 mcg tablet 75 mcg PO QAM 12/22/23 03/29/24 03/28/24 History metoprolol succinate 50 mg 50 mg PO DAILY 12/22/23 03/29/24 03/28/24 History tablet,extended release 24 hr sildenafil 100 mg tablet 100 mg PO DAILY PRN Erectile 12/22/23 03/29/24 03/28/24 History Dysfunction tamsulosin 0.4 mg capsule 0.4 mg PO DAILY 12/22/23 03/29/24 03/28/24 History Allergies Allergy/AdvReac Type Severity Reaction Status Date / Time Sulfa (Sulfonamide Allergy ALGY-Rash Verified 12/22/23 11:48 Antibiotics) PFSH Acute 2 PFSH: Medical History (Updated 03/29/24 @ 13:36 by Jesus Rincon MD) Obstructive sleep apnea Chronic back pain COPD (chronic obstructive pulmonary disease) Lung cancer Schizophrenia Surgical History H/O hernia repair Family History Father CAD (coronary artery disease) Mother Postsurgical cardiac pacemaker in situ Social History Smoking and tobacco/nicotine status: current every day tobacco/nicotine user Alcohol intake: never Substance/Drug Use: current Substance/Drug use type: Amphetamines Vitals/I&O/Wt Last Vital Signs Temp 98.1 F 03/29/24 10:54 Pulse 65 03/29/24 13:00 Resp 17 03/29/24 13:00 BP 158/92 03/29/24 13:00 Pulse Ox 97 03/29/24 13:00 O2 Del Method Room Air 03/29/24 13:00 Weight last 48 hrs Weight 74.843 kg Physical Exam 2 Const: COMMON NORMALS: no acute distress and patient oriented x3 Eye: COMMON NORMALS: Equal, round and reactive pupils present and EOMs intact bilaterally Neck/C-Spine: COMMON NORMALS: no JVD Resp: COMMON NORMALS: normal respiratory effort, No retractions, No use of accessory muscles and clear to auscultation bilaterally AUSCULTATION: clear to auscultation bilaterally Cardio: COMMON NORMALS: regular rate, regular rhythm, S1 normal heart sound present and S2 normal heart sound present RATE: regular rate RHYTHM: r egular rhythm HEART SOUNDS: S1 normal heart sound present and S2 normal heart sound present GI: COMMON NORMALS: Normal to inspection, nondistended, normoactive bowel sounds present, Soft to palpation and non-tender Extremity: COMMON NORMALS: no pedal edema Neuro: COMMON NORMALS: patient oriented x3, CN's II-XII intact bilaterally, moves all extremities and no focal motor deficits Psych: COMMON NORMALS: mental status grossly normal Data 03/29/24 11:13 03/29/24 11:13 A&P Assessment and plan (1) Unstable angina: (2) Methamphetamine abuse: Plan Unstable angina ? Chest pain sounds cardiac in nature ? Current smoker, COPD, hypertension ? Family history of CAD ? Does report methamphetamine use but has not used in over a week ? Has not used sildenafil in over a week ? Continues to complain of chest pain increasing to 6 out of 10 ? Plan ? Spoke to cardiology, cardiology will consult, for consideration of cardiac catheterization ? Cardiac echocardiogram ? Nitroglycerin drip ? Heparin drip ? Load with Plavix 600 mg ? Aspirin 325 followed by 81 mg daily -Atorvastatin ? Will keep n.p.o. for now ? TSH, A1c, lipid panel -DNR/DNI, confirmed with patient multiple times he does not want to be resuscitated in any means ? Heparin drip for DVT prophylaxis Spoke to patient, spoke to nursing staff, spoke to ER physician, spoke to cardiology Attestations 2 Medical Necessity Statement*: Patient requires hospitalization, inpatient, greater than 2 midnights, for unstable angina Diagnoses Unstable angina I20.0 Methamphetamine abuse F15.10
[2024-03-29 13:52] LABS: Troponin 5 2HR 8.87 ng/L (0-15)
[2024-03-29 13:55] LABS: Troponin 5 2HR Delta -0.13 ABS# (0-10)
[2024-03-29] MEDS: heparin 5,000 unit/mL INJ 1 mL IVP (13:57)
[2024-03-29] MEDS: clopidogrel 300 mg Tablet 600 MG PO (13:57)
[2024-03-29 14:07] LABS: Magnesium 2.2 mg/dL (1.7-2.3)
[2024-03-29 14:16] LABS: Alcohol Level < 10 mg/dL (0-10)
[2024-03-29] MEDS: heparin drip 25,000 UNIT/500 ML PREMIX 21 UNIT IV (14:19)
--- NOTE | 2024-03-29 14:34 | PC.NURSE ---
report called to Jodi ALLEN at 1430.
--- NOTE | 2024-03-29 14:44 | P.CONIM_ITS ---
Providers/Reason For Consult 2 Consulting Physician/Specialty*: Cardiology Reason for Consult*: Chest pain Requesting Physician: Dr. Jesus Rincon Attending Physician: Jesus Rincon MD Primary Care Provider: Yolette Laguna APN History of Present Illness History of Present Illness Mario Schmitt is a 69 year old male with no previous known cardiac history presented to the ER with ongoing chest pain for last couple of days. The chest pain seems a fairly atypical. At times it is related with exertion however at other times it has been there even at rest and since yesterday afternoon the pain is fairly constant. Initially the pain radiated to the neck and the left arm and was at times associated with shortness of air. Currently he is completely chest pain-free. Yesterday there was a brief episode of likely an event of syncope. As per patient and his he apparently lost his consciousness for 10 to 15 seconds. There was nothing noted unusual during that episode and he gained his consciousness immediately afterwards without any treatment. Initial EKG showed sinus rhythm with LVH voltage criteria. No acute ST changes. Repeat EKG shows some nonspecific ST changes. Risk factors include ongoing smoking and likely history of hypertension. Patient has visited ER here at the [facility] as well as in other hospitals with similar complaints in the last 2 years. He has not had any complete cardiac workup yet. Review of Systems 2 Narrative: Detailed 10 point systemic review unremarkable except for as mentioned above in the history of present illness. He seems to be fairly active in his daily routine life. Medications/Allergies Home Medications Medication Instructions Recorded Confirmed Last Taken Type albuterol sulfate 90 mcg/actuation 2 puff inhalation 6XD PRN 01/23/23 03/29/24 03/28/24 History aerosol inhaler Shortness Of Breath Or Wheezing aspirin 81 mg tablet,delayed 81 mg PO DAILY #30 tabs 01/23/23 03/29/24 03/28/24 Rx release isosorbide mononitrate 30 mg 30 mg PO DAILY #30 tabs 01/23/23 03/29/24 03/28/24 Rx tablet,extended release 24 hr cyclobenzaprine 10 mg tablet 10 mg PO TID PRN muscle spasm #30 06/02/23 03/29/24 03/28/24 Rx tabs diclofenac sodium 75 mg 75 mg PO BID PRN INFLAMATORY PAIN 12/22/23 03/29/24 03/28/24 History tablet,delayed release levothyroxine 75 mcg tablet 75 mcg PO QAM 12/22/23 03/29/24 03/28/24 History metoprolol succinate 50 mg 50 mg PO DAILY 12/22/23 03/29/24 03/28/24 History tablet,extended release 24 hr sildenafil 100 mg tablet 100 mg PO DAILY PRN Erectile 12/22/23 03/29/24 03/28/24 History Dysfunction tamsulosin 0.4 mg capsule 0.4 mg PO DAILY 12/22/23 03/29/24 03/28/24 History Allergies Allergy/AdvReac Type Severity Reaction Status Date / Time Sulfa (Sulfonamide Allergy ALGY-Rash Verified 12/22/23 11:48 Antibiotics) Current Medications Generic Name Dose Route Start Last Admin Trade Name Freq PRN Reason Stop Dose Admin Heparin Sodium/Sodium Chloride 25,000 unit in 500 mls @ 0 mls/hr 03/29/24 13:15 03/29/24 14:19 Heparin Drip IV 14.03 unit/kg/hr CONT DAREN 21 mls/hr Administration Protocol Per Protocol PFSH Acute 2 PFSH: Medical History Obstructive sleep apnea Chronic back pain COPD (chronic obstructive pulmonary disease) Lung cancer Schizophrenia Surgical History H/O hernia repair Family History Father CAD (coronary artery disease) Mother Postsurgical cardiac pacemaker in situ Social History Smoking and tobacco/nicotine status: current every day tobacco/nicotine user Alcohol intake: never Substance/Drug Use: current Substance/Drug use type: Amphetamines Vitals/I&O/Wt Last Vital Signs Temp 98.1 F 03/29/24 10:54 Pulse 72 03/29/24 14:00 Resp 15 03/29/24 14:00 BP 151/86 03/29/24 14:00 Pulse Ox 97 03/29/24 14:00 O2 Del Method Room Air 03/29/24 14:00 Weight last 48 hrs Weight 165 lb Physical Exam 2 Narrative: Laying comfortably in the bed. No respiratory distress. Const: COMMON NORMALS: no acute distress and no limitations HENMT: COMMON NORMALS: normocephalic HEAD & SCALP: normocephalic OTHER: Unremarkable. Eye: OTHER: Normal Chest: OTHER: There is mild tenderness over the left side of chest over precordial area. Resp: COMMON NORMALS: normal respiratory effort, No use of accessory muscles and clear to auscultation bilaterally AUSCULTATION: clear to auscultation bilaterally Cardio: OTHER: Normal first and second heart sounds. No added sounds. GI: OTHER: Abdomen soft nontender. Bowel sounds audible. Extremity: OTHER: Normal. No lower extremity edema. Skin: OTHER: Warm and dry. Data 03/29/24 11:13 03/29/24 11:13 A&P Assessment and plan (1) Chest pain: Plan 69-year-old male patient with somewhat atypical chest pain. Cardiac risk factor include hypertension and history of smoking. Clinically he is stable now hemodynamically. Clinically no heart failure. Recommendation: Rule out acute coronary syndrome and for echocardiogram and nuclear stress test. Coding Level of Care Code 28969 Diagnoses Chest pain R07.9 Time Spent (min) 30
--- NOTE | 2024-03-29 14:58 | ECG_ITS ---
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
[2024-03-29] MEDS: morphine 4 mg/mL SDV 1 mL 2 MG IVP (15:05)
[2024-03-29] MEDS: pantoprazole 40 mg SDV IVP (15:05)
[2024-03-29 15:42] LABS: NT Pro B Type Natriuretic Pept 200 pg/mL (0-125); Thyroid Stimulating Hormone 2.99 uIU/mL (0.27-4.20)
--- NOTE | 2024-03-29 15:57 | PC.NURSE ---
Morphine 2mg IVP for the chest pain that cardiology made worse per patient. He said it is not helping. Nitro makes his blood pressure drop fast as per ED. Informed Dr Rincon. Dr Rincon to put in orders.
[2024-03-29] MEDS: HYDROmorphone 1 mg/mL INJ 1 mL 0.5 MG IVP (16:01)
[2024-03-29 16:06] LABS: Estmated Average Glucose 117; Hemoglobin A1C 5.7 % (4.0-6.0)
--- NOTE | 2024-03-29 16:57 | ECG_ITS ---
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 Measurements Intervals [place] Rate: 64 P: 56 TN: 124 QRS: 44 QRSD: 93 T: 16 QT: 399 QTc: 415 Interpretive Statements SINUS RHYTHM WITH SINUS ARRHYTHMIA LEFT VENTRICULAR HYPERTROPHY AND ST-T CHANGE [VOLTAGE CRITERIA PLUS ST/T ABNORMALITY] Compared to ECG 03/29/2024 12:43:41 ST (T wave) deviation now present Electronically Signed On 03-30-2024 17:18:57 CDT by Brittney Garcia M.D. [email or web address]
--- OUTSIDE RECORDS SUMMARY | 2024-03-29 18:09 | XMS_ITS ---
Author Name Unknown Organization Unknown Allergies, Adverse Reactions and Alerts Date Isallergic Allergen 12/28/2023 00:00:00 1 Sulfa Antibi otics 12/22/2023 00:00:00 1 Sulfa Antibi otics ASSESSMENT No information CHIEF COMPLAINT No information MEDICATIONS No information OBJECTIVE DATA No information PHYSICAL EXAMINATION No information TREATMENT PLAN No information PROBLEMS No information RESULTS No information REVIEW OF SYSTEMS No information SUBJECTIVE DATA No information VITAL SIGNS No information
--- OUTSIDE RECORDS SUMMARY | 2024-03-29 18:09 | XMS_ITS ---
Author Name Unknown Organization [facility] ALLERGIES AND ADVERSE REACTIONS No information ASSESSMENT No information CHIEF COMPLAINT No information Medications Date Medication Dosage Dosageunit Startdate Active Dispense Refills Ndccode Isprescription Srcstatus 01/26 00:00 :00 Albuterol Sulfate (2.5 MG/3ML) 0.083% Nebulizatio n Solution 01/26/2023 00:00:00 1 [id number] 052 P Taking 01/26 00:00 :00 Albuterol Sulfate HFA 108 (90 Base) MCG/ACT Aerosol Solution 1 [id number] 287 Taking 10/14 00:00 :00 Aspirin 81 81 MG Tablet Delayed Release 1 [id number] 431 Taking 08/23 00:00 :00 Aspirin 81 81 MG Tablet Delayed Release 1 [id number] 431 Taking 07/30 00:00 :00 Aspirin 81 81 MG Tablet Delayed Release 1 [id number] 431 Taking 10/14 00:00 :00 Cyclobenzap rine HCl 10 MG Tablet 1 30 Each 0 [id number] 200 P Not Taking 08/23 00:00 :00 Cyclobenzap rine HCl 10 MG Tablet 1 30 Each 0 [id number] 200 P Not Taking 07/30 00:00 :00 Cyclobenzap rine HCl 10 MG Tablet 1 30 Each 0 [id number] 200 P Not Taking 10/14 00:00 :00 HYDROcodone -Acetaminop hen 5-325 MG Tablet 1 20 Each 0 [id number] 310 P Not Taking 08/23 00:00 :00 HYDROcodone -Acetaminop hen 5-325 MG Tablet 1 20 Each 0 [id number] 310 P Not Taking 07/30 00:00 :00 HYDROcodone -Acetaminop hen 5-325 MG Tablet 1 20 Each 0 [id number] 310 P Not Taking 10/14 00:00 :00 Levothyroxi ne Sodium 75 MCG Tablet 08/24/2023 00:00:00 1 30 3 [id number] 510 P Taking 08/23 00:00 :00 Levothyroxi ne Sodium 75 MCG Tablet 08/24/2023 00:00:00 1 30 3 [id number] 510 P Start 10/14 00:00 :00 Metoprolol Succinate 50 MG Capsule ER 24 Hour Sprinkle 07/31/2023 00:00:00 1 30 P Taking 08/23 00:00 :00 Metoprolol Succinate 50 MG Capsule ER 24 Hour Sprinkle 07/31/2023 00:00:00 1 30 P Taking 07/30 00:00 :00 Metoprolol Succinate 50 MG Capsule ER 24 Hour Sprinkle 07/31/2023 00:00:00 1 30 P Start 10/14 00:00 :00 Metoprolol Tartrate 25 MG Tablet 0 60 6 [id number] 801 P Discontinu ed 08/23 00:00 :00 Metoprolol Tartrate 25 MG Tablet 1 60 6 [id number] 801 P Taking 07/30 00:00 :00 Metoprolol Tartrate 25 MG Tablet 1 60 6 [id number] 801 P Taking 02/17 00:00 :00 Metoprolol Tartrate 25 MG Tablet 1 60 6 [id number] 801 P Taking 01/26 00:00 :00 Metoprolol Tartrate 25 MG Tablet 1 60 6 [id number] 801 P Start 10/14 00:00 :00 Sildenafil Citrate 100 MG Tablet 1 30 Tablet 6 [id number] 101 Taking 08/23 00:00 :00 Sildenafil Citrate 100 MG Tablet 1 30 Tablet 6 [id number] 101 Taking 08/02 00:00 :00 Sildenafil Citrate 100 MG Tablet 1 30 Tablet 6 55104578 101 Start 08/02 00:00 :00 Sildenafil Citrate 100MG 0 30 Tablet 1 [id number] 101 Stop 01/26 00:00 :00 Sildenafil Citrate 100 MG Tablet 1 30 Each 1 [id number] 101 P Taking OBJECTIVE DATA No information PHYSICAL EXAMINATION No information TREATMENT PLAN No information PROBLEMS No information RESULTS No information REVIEW OF SYSTEMS No information SUBJECTIVE DATA No information VITAL SIGNS No information
--- OUTSIDE RECORDS SUMMARY | 2024-03-29 18:09 | XMS_ITS ---
Author Name Unknown Organization [facility] ALLERGIES AND ADVERSE REACTIONS No information ASSESSMENT No information CHIEF COMPLAINT No information Vital Signs Bpsitting Date Temperature Heartrate Weight Height Spo2 Respiratio n Bmi Fieldcount Timerecorded 142/75 10-14 97.7 78 170,0 6,2 96 20 21.8 2 9 09:00 152/90 08-23 97.7 80 169,0 6,2 97 20 21.7 8 13:40 136/86 07-30 97.3 68 170,0 6,2 null 20 21.8 2 8 11:20 124/76 02-17 98.9 76 163,0 6,2 94 20 20.9 3 8 08:40 139/76 01-26 97.9 85 162,0 6,2 96 20 20.8 8 13:40 OBJECTIVE DATA No information PHYSICAL EXAMINATION No information TREATMENT PLAN No information PROBLEMS No information RESULTS No information REVIEW OF SYSTEMS No information SUBJECTIVE DATA No information MEDICATIONS No information
--- OUTSIDE RECORDS SUMMARY | 2024-03-29 18:10 | XMS_ITS ---
Author Name Unknown Organization [facility] Address [address] [place] [address] Care Team Providers Care Test Consultant Name Role Phone Laguna, [facility] Primary Care Provider LAGUNA, DELBERT Unavailable Unavailable REASON FOR VISIT VILLA Encounters Encounter Location Date Provider Diagnosis [facility] [address] [place] [address] 12/28/2023 [facility] Laguna Plan Of Treatment No Information Progress Notes * ALONDRA PALMA TDOB: (68 yo M)Acc No.[id number]:12/28/2023 Patient:?MINERVA ALONDRA Kang :1955???Age:68 Y???Sex:Male Address:[address] [place] [address] , [place], [address] * true * Date:? Generated for Jocei ratna/Rosi/eTransmitting on:?03/29/2024 06:09 PM CDT
--- OUTSIDE RECORDS SUMMARY | 2024-03-29 18:10 | XMS_ITS ---
Author Name Unknown Organization [facility] Address [address] [place] [address] Care Team Providers Care Hotel Casino Floorperson Name Role Phone Laguna, [facility] Primary Care Provider LAGUNA, DELBERT Unavailable Unavailable Encounters Encounter Location Date Provider Diagnosis [facility] Office [address] [address] 11/10/2023 [facility] Laguna Plan Of Treatment No Information Progress Notes * FAROOQALONDRA BROWN TDOB: (68 yo M)Acc No.[id number]:11/10/2023 Patient:?ALONDRA PALMA :1955???Age:68 Y???Sex:Male Address:[address] [place] [address] , [place], [address] Subjective: * Chief Complaints: * ??? * HPI: ???Interim History:?*Hospital Transition of care (inpatient/overnight stay)?Date of admission to hospital:?11/07/2023 ?Reason for admission:?Chest pain ?Date of discharge from hospital:?11/07/2023 ?Discharging Facility:?Discharged from [facility] in [facility] ?Telephone contact/attempt made within 2 business days of discharge:?Yes Attempt to contact patient 4 times no answer and no voicemail set up. * Medical History:? * Surgical History:? * Hospitalization/Major Diagno stic Procedure:? * Medications:? Objective: * Vitals:? * Physical Examination:? Assessment: Plan: * Treatment: * Procedure Codes:? * true * Date:? Generated for Vianey segundo/Rosi/Bella on:?03/29/2024 06:10 PM CDT History and Physical Notes * HPI (History of Present Illness) Category Sub-Category Detail Notes Interim History *Hospital Transition of care (inpatient/overnight stay) Date of admission to hospital:: 11/07/2023 Reason for admission:: Chest pain Date of discharge from [facility]:: 11/07/2023 Discharging Facility:: Discharged from [facility] in [facility] Telephone contact/attempt raymundo briones within 2 business days of discharge:: Yes Attempt to contact patient 4 times no answer and no voicemail set up.
--- OUTSIDE RECORDS SUMMARY | 2024-03-29 18:10 | XMS_ITS ---
Author Name Unknown Organization [facility] Address [address] [place] [address] Care Team Providers Care Research Analyst Name Role Phone [facility] Primary Care Provider [facility] Unavailable Unavailable Results Component Value Reference Range Notes Thyroid Stimulating Hormone (TSH) 57195 Reviewed date:11/23/2023 02:26:40 PM Interpretation: Performing Lab: Notes/Report: Diagnosis Description: Hypothyroidism, unspecified TSH 2.805 .358-3.740 MlU/ML REASON FOR VISIT thyroid Encounters Encounter Location Date Provider Diagnosis [facility] Office [address] [address] 11/19/2023 [facility] Primary hypertension I10 and Hypothyroid E03.9 Assessments Encounter Date Diagnosis (ICD Code) Assessment Notes Treat ment Notes Treatment Clinical Notes 11/19/2023 Primary hypertension (ICD-10 - I10) 11/19/2023 Hypothyroid (ICD-10 - E03.9) 11/19/2023 Other Venipuncture: Performed by: Mary JAMES Attempts: x1 Location: RAC Needle gauge: 21g Patient tolerated well. Plan Of Treatment No Information Progress Notes * ALONDRA PALMA TDOB: [birth year] (68 yo M)Acc No.[id number]:11/19/2023 Patient:?ALONDRA PALMA Provider:?Yolette Laguna CHEMICAL PLANT TECHNICAL DIRECTOR :1955???Age:68 Y???Sex:Male Rodri e:11/19/2023 Address:[address] [place] [address] , [id number] Check In:11:42 AM CSTCheck O ut:11:48 AM API ARCHITECT Subjective: * Chief Complaints: * ???Thyroid * Medical History:? * Surgical History:? * Hospitalization/Major Diagno stic Procedure:? * Medications:? Objective: * Vitals:? Assessment: * Assessment: 1.?Primary hypertension - I1 0 (Primary)?2.?Hypothyroid - E03.9? Plan: * Treatment: ? Value Reference Range ?TSH 2.805 .358-3.740 - Ml U/ML * Yolette Lagnua 11/23/2023 02: 26:38 PM CDT > okThis lab was reviewed by Yoletet Laguna on 11/23/2023 at 14:26 PM CDT 2.?Others? Clinical Notes:Venipuncture:Performed by: Mary JAMES Attempts: x1 Location: RAC Needle gauge: 21g Patient tolerated well. ? * Procedure Codes:?68173 VENIP UNCT, ROUTINE* * Billing Information: * Visit Code:? * Procedure Codes:? 09744 VENIPUNCT, ROUTINE*. * Sign off status: Completed true * Provider:?Yolette Laguna CHEMICAL PLANT TECHNICAL DIRECTOR Date:?11/19/19 24 Generated for Vianey segundo/Rosi/eTransmitting on:?03/29/2024 06:09 PM CDT
[2024-03-29 18:11] LABS: Troponin 5 6HR 8.33 ng/L (0-15)
[2024-03-29 18:12] LABS: Troponin 5 6HR Delta -0.67 ng/L (0-12)
[2024-03-29 20:47] LABS: Partial Thromboplastin Time 82.1 SECONDS (23.9-36.7)
[2024-03-30] VITALS (7 sets, daily range): BP systolic 141–174; BP diastolic 66–93; PULSE 55–86; RESP 12–22; TEMP 36.8; O2SAT 95–97
[2024-03-30] MEDS: HYDROmorphone 1 mg/mL INJ 1 mL 0.5 MG IVP (02:15)
[2024-03-30 03:45] LABS: Basophils # 0.1 10^3/uL (0.0-0.1); Basophils % 0.8 %; Eosinophils # 0.2 10^3/uL (0.0-0.8); Eosinophils % 3.1 %; Hematocrit 43.7 % (37-53); Lymphocytes # 2.5 10^3/uL (0.8-4.8); Mean Corpuscular HGB Conc 32.3 g/dL (30-55); Mean Corpuscular Hemoglobin 29.8 pg (27-33); Mean Corpuscular Volume 92.4 fl (82-101); Mean Platelet Volume 10.7 fL (7.4-10.4); Monocytes # 0.6 10^3/uL (0.2-0.9); Monocytes % 9.8 %; Neutrophils # 3.15 10^3/uL (1.8-7.7); Neutrophils % 48.1 %; Nucleated Red Blood Cells % 0 %; Platelet Count 255 10^3/cmm (157-399); Red Blood Count 4.73 10^6/uL (3.85-5.65); Red Cell Distribution Width 13.5 % (12.1-15.1); White Blood Count 6.53 10^3/uL (3.29-11.43)
[2024-03-30 03:57] LABS: Partial Thromboplastin Time 57.5 SECONDS (23.9-36.7)
[2024-03-30 04:01] LABS: Alanine Aminotransferase 11 U/L (0-41); Albumin Level 3.6 g/dL (3.5-5.2); Alkaline Phosphatase 79 U/L (40-130); Anion Gap 12.1 (5-19); Aspartate Amino Transferase 12 U/L (0-40); Blood Urea Nitrogen 19 mg/dL (8-23); Calcium 8.5 mg/dL (8.5-10.5); Carbon Dioxide 27 mmol/L (22-29); Chloride 105 mmol/L (98-107); Creatinine Clr Calc Pharmacy 102.2639; Globulin 2.5 g/dL (1.3-4.6); Glomerular Filtration Rate 112.5 mL/min (90-130); Glucose 96 mg/dL (65-115); Osmolality Calculated 292 mOsm/kg (285-295); Potassium 4.1 mmol/L (3.5-5.1); Sodium 140 mmol/L (136-145); Total Bilirubin 0.2 mg/dL (0.15-1.2); Total Protein 6.1 g/dL (6.6-8.7)
[2024-03-30 04:57] LABS: Amphetamines Screen Urine Positive (Negative); Barbiturates Screen Urine Negative (Negative); Benzodiazepines Screen Urine Negative (Negative); Cocaine Screen Urine Negative (Negative); Opiate Screen Urine Positive (Negative); PCP Screen Urine Negative (Negative); THC Screen Urine Negative (Negative)
[2024-03-30] MEDS: regadenoson 0.4 Mg/5 ml Syringe IVP (07:18)
--- NOTE | 2024-03-30 09:57 | PC.CHAP ---
Pastoral Care Encounter/Spiritual Assessment Type of Contact [x] Declined prosthodontist visit [] Patient/Family/Request visit [] Outpatient visit [] Follow-up visit [] Physician referral [] Code/Alert [] Routine visit [] Staff referral [] Actively dying [] Patient sleeping [] Family support [] [] Out of room [] Palliative care [] [] Receiving care in room [] Pre-surgical visit [] Trauma [] Long length of stay [] ICU visit [] Other: Relational/Emotional Strength [] Patient feels connected with others/family/visitors/staff [] Distress [] Loneliness/isolation [] Abandonment Spirituality of Patient [] Person of Rut [] Attends Oriental Orthodox of their Rut [] Believes in Prayer [] Reads Bible or Faith materials [] There are Spiritual issues to be addressed Multiple Punch Press Operator Interventions [] Prayer [] Active listening [] Non-anxious presence [] Spiritual/emotional support [] Crisis/trauma care [] Spiritual counseling [] Bereavement support [] Provided bereavement packet [] Provided Bible/devotional materials [] Provided toy/stuffed animal, coloring book to patient or family member [] Provided Communion [] Anointing/[place] [] Salvation [] Completed spiritual assessment [] Other: Impact on Illness or Injury [] Angry [] Fearful [] Anxious [] Often cries [] Exhaustion [] Unable to work [] Unable to attend protestant [] Unable to walk/stand [] Unable to read [] Unable to drive [] Unable to eat/drink [] Unable to sleep [] Unable to be with family [] Patient intubated [] Other: Summary Time spent with patient
[2024-03-30] MEDS: clopidogrel 75 mg Tablet PO (10:25)
[2024-03-30] MEDS: tamsulosin 0.4 mg Capsule PO (10:26)
[2024-03-30] MEDS: levothyroxine 75 mcg Tablet PO (10:26)
[2024-03-30] MEDS: aspirin 81 mg EC Tablet PO (10:26)
[2024-03-30] MEDS: metoprolol succinate ER (24 HR) 50 mg Tablet PO (10:26)
--- NOTE | 2024-03-30 11:30 | PM.DCS ---
Discharge Providers Date of Admission: 03/29/24 13:05 Date of Discharge: March 30, 2024 Attending Provider at Admission: Jesus Rincon MD Attending Provider at Discharge: Jesus Rincon MD Primary Care Provider: Yolette Laguna APN Diagnoses at Discharge Discharge Diagnosis (1) Chest pain: Status: Acute Reason for Visit Reason for Visit: chest pain Hospital Course Hospital Course Mario Schmitt is a 69 year old male with a past medical history of with a past medical history of COPD, current smoker, who presents [facility] for chest pain. Patient tells me that for the last week he has been having chest pain, chest pain with exertion, he tells me yesterday he with exertion, he started developing substernal chest pain, radiating up his neck rating down his left arm felt short of breath, improved with rest. He tells me has had multiple ER visits in the last year for chest pain, typically the chest pain subsides, is never really occurred with rest. He tells me this morning he developed chest pain with minimal exertion,/rest, severe substernal chest pain, left side of the chest pressure-like pain rating to the neck, radiating down the arm, does report smoking, he reports he had a stress test some years ago at [facility] which was in normal limits. He does report methamphetamine use, the last use was about a week ago. Denies any cocaine or IV drug abuse. He has not used sildenafil in the last few weeks. Currently the chest pain is 6 out of 10, he tells me that it is increasing currently, denies any shortness of breath normotensive, heart rate 65 respiratory 17 temperature 90.1 O2 sat 97% on room air. His initial troponin was 9. EKG no acute ST-T wave changes. However does report persistent chest pain This is a 69-year-old male who presents [facility] for unstable angina, admitted to see his he was started on heparin drip, received Plavix, aspirin, statin, cardiology was consulted, plan on cardiac stress test stress test IMPRESSIONS Large area of old myocardial infarction versus scarring noted in basal to distal inferior basal to mid inferoseptal and basal to mid inferolateral wall without luna-infarct ischemia. This study is negative for ischemia. EKG segment will be documented separately. cardiac echo CONCLUSIONS Mild concentric LVH. Normal LV systolic function. LVEF normal 70%. No significant valvular abnormality noted. Normal right heart and pulmonary pressures. -Patient was seen the morning of 03/30/2024, denied any chest pain overnight, we discussed smoking cessation, he also reports methamphetamine use discussed his positivity of methamphetamines, advised against drug use ? Plan was on waiting for stress test results and further discussion, -Later on morning of 03/30/2024, after stress test patient became very agitated with nursing staff, started swearing and cussing at nursing staff, I had offered him Xanax to help with his anxiety, as he was telling nursing staff that this is a locked unit in the cardiac stepdown unit, and that we cannot keep him here, wants to go out and smoke, left AGAINST MEDICAL ADVICE -Patient was advised through nursing staff the morbidity mortality associated with his current condition, CAD, he voiced understanding, all questions answered, left AGAINST MEDICAL ADVICE Physical Exam Const: COMMON NORMALS: no acute distress and patient oriented x3 Resp: COMMON NORMALS: normal respiratory effort, No retractions, No use of accessory muscles and clear to auscultation bilaterally AUSCULTATION: clear to auscultation bilaterally Cardio: COMMON NORMALS: regular rate, regular rhythm, S1 normal heart sound present and S2 normal heart sound present RATE: regular rate RHYTHM: regular rhythm HEART SOUNDS: S1 normal heart sound present and S2 normal heart sound present GI: COMMON NORMALS: Normal to inspection, nondistended, normoactive bowel sounds present and non-tender Extremity: COMMON NORMALS: no pedal edema Neuro: COMMON NORMALS: patient oriented x3 Psych: COMMON NORMALS: mental status grossly normal Discharge Data Studies Completed and Pending Completed Studies During Hospitalization Category Date Time Status Sestamibi Stress Test Request Routine Exams 03/29/24 14:58 Draft XR chest 1V portable [id number] Stat Exams 03/29/24 10:57 Completed NM alexander perf SPECT r/s* [id number] Routine Nuc Med 03/30/24 14:58 Completed CV. echo complete* [id number] Stat Ultrasound 03/29/24 13:07 Completed Pending at discharge Category Date Time Status Complete Blood Count w/Auto AM LABS Lab 03/31/24 04:00 Ordered Complete Blood Count w/Auto AM LABS Lab 04/01/24 04:00 Ordered Comprehensive Metabolic Panel AM LABS Lab 03/31/24 04:00 Ordered Comprehensive Metabolic Panel AM LABS Lab 04/01/24 04:00 Ordered PTT [Partial Thromboplastin Time] Routine Lab 03/30/24 10:00 Ordered Platelet Count Q2D Lab 03/31/24 04:00 Ordered Platelet Count Q2D Lab 04/02/24 04:00 Ordered Radiology Impressions Chest X-Ray 03/29/24 10:57 IMPRESSION: No acute findings. Laboratory Results WBC 6.53 10^3/uL (3.29-11.43) 03/30/24 03:19 RBC 4.73 10^6/uL (3.85-5.65) 03/30/24 03:19 Hgb 14.10 g/dL (11.27-16.99) 03/30/24 03:19 Hct 43.7 % (37-53) 03/30/24 03:19 MCV 92.4 fl (82-101) 03/30/24 03:19 MCH 29.8 pg (27-33) 03/30/24 03:19 MCHC 32.3 g/dL (30-55) 03/30/24 03:19 RDW 13.5 % (12.1-15.1) 03/30/24 03:19 Plt Count 255 10^3/cmm (157-399) 03/30/24 03:19 MPV 10.7 fL (7.4-10.4) H 03/30/24 03:19 Neut % (Auto) 48.1 % 03/30/24 03:19 Lymph % (Auto) 38.0 % 03/30/24 03:19 [place] % (Auto) 9.8 % 03/30/24 03:19 Eos % (Auto) 3.1 % 03/30/24 03:19 Baso % (Auto) 0.8 % 03/30/24 03:19 Neut # (Auto) 3.15 10^3/uL (1.8-7.7) 03/30/24 03:19 Lymph # (Auto) 2.5 10^3/uL (0.8-4.8) 03/30/24 03:19 [place] # (Auto) 0.6 10^3/uL (0.2-0.9) 03/30/24 03:19 Eos # (Auto) 0.2 10^3/uL (0.0-0.8) 03/30/24 03:19 Baso # (Auto) 0.1 10^3/uL (0.0-0.1) 03/30/24 03:19 Nucleated RBC % (auto) 0 % 03/30/24 03:19 Nucleated RBCs # 0.0 /100WBC 03/30/24 03:19 PT 12.50 SECONDS (12.1-14.9) 03/29/24 11:13 INR 0.91 (0.8-1.2) 03/29/24 11:13 APTT 57.5 SECONDS (23.9-36.7) H 03/30/24 03:19 Sodium 140 mmol/L (136-145) 03/30/24 03:19 Potassium 4.1 mmol/L (3.5-5.1) 03/30/24 03:19 Chloride 105 mmol/L (98-107) 03/30/24 03:19 Carbon Dioxide 27 mmol/L (22-29) 03/30/24 03:19 Anion Gap 12.1 (5-19) 03/30/24 03:19 BUN 19 mg/dL (8-23) 03/30/24 03:19 Creatinine 0.7 mg/dL (0.7-1.2) 03/30/24 03:19 GFR Calculation 112.5 mL/min (90-130) 03/30/24 03:19 Glucose 96 mg/dL (65-115) 03/30/24 03:19 Estimat Average Glucose 117 03/29/24 11:13 Hemoglobin A1c 5.7 % (4.0-6.0) 03/29/24 11:13 Calculated Osmolality 292 mOsm/kg (285-295) 03/30/24 03:19 Calcium 8.5 mg/dL (8.5-10.5) 03/30/24 03:19 Magnesium 2.2 mg/dL (1.7-2.3) 03/29/24 13:02 Total Bilirubin 0.2 mg/dL (0.15-1.2) 03/30/24 03:19 AST 12 U/L (0-40) 03/30/24 03:19 ALT 11 U/L (0-41) 03/30/24 03:19 Alkaline Phosphatase 79 U/L (40-130) 03/30/24 03:19 Troponin T Baseline 9 ng/L (0-15) 03/29/24 11:13 Troponin T 120 Minute 8.87 ng/L (0-15) 03/29/24 13:02 Delta Troponin T -0.13 ABS# (0-10) L 03/29/24 13:02 Troponin T Hi Sens 6Hr 8.33 ng/L (0-15) 03/29/24 17:12 Troponin T Hi Sens 6Hr Delta -0.67 ng/L (0-12) L 03/29/24 17:12 NT-Pro-B Natriuret Pep 200 pg/mL (0-125) H 03/29/24 11:13 Total Protein 6.1 g/dL (6.6-8.7) L 03/30/24 03:19 Albumin 3.6 g/dL (3.5-5.2) 03/30/24 03:19 Globulin 2.5 g/dL (1.3-4.6) 03/30/24 03:19 Lipase 30 U/L (13-60) 03/29/24 11:13 TSH 2.99 uIU/mL (0.27-4.20) 03/29/24 11:13 Urine Opiates Screen Positive ng/mL (Negative) H 03/30/24 04:16 Ur Barbiturates Screen Negative ng/mL (Negative) 03/30/24 04:16 Ur Phencyclidine Scrn Negative ng/mL (Negative) 03/30/24 04:16 Ur Amphetamines Screen Positive ng/mL (Negative) H 03/30/24 04:16 U Benzodiazepines Scrn Negative ng/mL (Negative) 03/30/24 04:16 Urine Cocaine Screen Negative ng/mL (Negative) 03/30/24 04:16 U Marijuana (THC) Screen Negative ng/mL (Negative) 03/30/24 04:16 Ethyl Alcohol < 10 mg/dL (0-10) 03/29/24 13:02 Vitals Last Vital Signs Temp 98.3 F 03/30/24 08:00 Pulse 63 03/30/24 08:00 Resp 12 03/30/24 08:00 BP 174/93 03/30/24 08:00 Pulse Ox 97 03/30/24 08:00 O2 Del Method Room Air 03/30/24 08:00 Discharge Plan Discharge Patient Disposition: Left Against Medical Advice Condition: Stable Prescriptions: Continued cyclobenzaprine 10 mg tablet 10 mg PO TID PRN (Reason: muscle spasm) Qty: 30 0RF albuterol sulfate 90 mcg/actuation Hfa Aerosol Inhaler 2 puff INHALATION 6XD PRN (Reason: Shortness Of Breath Or Wheezing) aspirin 81 mg tablet,delayed release (DR/EC) 81 mg PO DAILY Qty: 30 0RF isosorbide mononitrate 30 mg tablet extended release 24 hr 30 mg PO DAILY Qty: 30 0RF metoprolol succinate 50 mg tablet extended release 24 hr 50 mg PO DAILY sildenafil 100 mg tablet 100 mg PO DAILY PRN (Reason: Erectile Dysfunction) levothyroxine 75 mcg tablet 75 mcg PO QAM tamsulosin 0.4 mg capsule 0.4 mg PO DAILY Discontinued diclofenac sodium 75 mg tablet,delayed release (DR/EC) 75 mg PO BID PRN (Reason: INFLAMATORY PAIN) Discharge Orders: Discharge Order (Routine); Ordered 03/30/24 Ordered By: Jesus Rincon Referrals: Laguna,HUMBERTO De La Vega [Primary Care Provider] - Discharge Diet: Cardiac Discharge Activity: Resume usual activity Discharge Attestations Time Spent in Discharge Care*: greater than 30 min Status at Discharge: Cognitive status at discharge: cognitively intact, Behavioral status at discharge: can be uncooperative, Quality Metrics Clinical Quality Measures [ No reported AMI, CVA or VTE this stay] Coding Level of Care Code 95063 Total time (in minutes) for Discharge: 45 Diagnoses Chest pain R07.9
--- NOTE | 2024-03-30 11:37 | PC.NURSE ---
pt became very agitated when discovered that [facility] unit exits are locked and he cannot come and go outside to smoke.he stated i am not a psyche pt ... i do not have dementia ...he became very angry and uttered expletives to this nurse,who calmly explained why the unit was locked..and why he should stay for his health reasons.dr garcía notified.pt offered an anti-anxiety medication..and he really became upset and stated i am leaving ! ama form signed...and pt left.
--- NOTE | 2024-03-30 14:58 | NMCV_ITS ---
NM alexander perf SPECT r/s* [id number] Mario Schmitt Age: 69 Gender: M : 1955 Exam Date: 03/30/2024 06:34 Ordering Phys: Jesus Rincon MD Technologist: FAROOQ Singer Exam Location: [facility] Indications: cp STRESS TEST [facility] IMAGE PROTOCOL Rest/Stress 1 Exercise Day Radiopharmaceutical Dose (mCi) Administration Site Administered by Rest: Tc-99m 10.4 IV FAROOQ Singer Sestamibi Stress:Tc-99m 31.7 IV FAROOQ Wolf Sestamibi Rest: 30-Mar-2024 60 Discovery 630 Stress: 30-Mar-2024 30 Discovery 630 0.4mg Lexiscan. Images obtained in supine and prone position. SPECT RESULTS Technical Quality: Good Raw Data Analysis: Normal Image Corrections: No attenuation or motion correction applied Summed Stress Score: 1 Summed Rest Score: 3 Summed Difference Score: 0 PERFUSION FINDINGS Large area of fixed perfusion defect noted in basal to distal inferior basal to mid inferoseptal and basal to mid inferolateral wall on both rest and stress images suggestive of old myocardial infarction versus scarring. FUNCTIONAL RESULTS (calculated via Gated SPECT) Stress Image LV EF (%): 50 Stress EDV (mL):128 TID: 1.08 Stress ESV (mL):64 FUNCTIONAL FINDINGS: There appeared to be basal to mid inferior wall akinesis and mid to distal inferior wall hypokinesis IMPRESSIONS Large area of old myocardial infarction versus scarring noted in basal to distal inferior basal to mid inferoseptal and basal to mid inferolateral wall without luna-infarct ischemia. This study is negative for ischemia. EKG segment will be documented separately. Zach Verde MD (Electronically Signed) Final Date: 30 March 2024 08:50 S
== END 2024-03-30 11:44 | disposition home or self-care (01) | DRG 311 ==
LOC: ER 12:36 → CSU 18:07
PROVIDERS: Internal Medicine; Admitting Provider Family Medicine; Emergency Provider Emergency Medicine; PCP Nurse Practitioner Family; Visit Provider Family Medicine
DX: I20.0 Unstable angina (principal); J44.9 Chronic obstructive pulmonary disease, unspecified; F17.200 Nicotine dependence, unspecified, uncomplicated; F15.10 Other stimulant abuse, uncomplicated; I10 Essential (primary) hypertension; Z66 Do not resuscitate; Z79.82 Long term (current) use of aspirin; Z82.49 Family history of ischemic heart disease and other diseases of the circulatory system
CPT/HCPCS: 36415; 71045; 78452; 80053; 80306; 80307; 83036; 83690; 83735; 83880; 84443; 84484; 85025; 85610; 85730; 93005; 93017; 93306; 94664; 96375; 96376; A9500; J1171; J1644; J2270; J2470; J2785

== ENCOUNTER 2024-03-30 15:25 | Emergency (ER) | payer MEDICARE, MEDICAID, SELFPAY ==
[2024-03-30 15:26] VITALS: BP 102/60; PULSE 54; RESP 24; TEMP 36.4; O2SAT 99
--- NOTE | 2024-03-30 15:29 | ECG_ITS ---
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 Measurements Intervals [place] Rate: 53 P: 70 IA: 153 QRS: 72 QRSD: 102 T: 74 QT: 465 QTc: 439 Interpretive Statements SINUS BRADYCARDIA MODERATE VOLTAGE CRITERIA FOR LVH, CONSIDER NORMAL VARIANT [MEETS CRITERIA IN ONE OF: R(aVL), S(V1), R(V5), R(V5/V6)+S(V1)] Compared to ECG 03/29/2024 17:26:29 No significant change Electronically Signed On 03-30-2024 16:47:44 CDT by Brittney Garcia M.D. [email or web address]
--- NOTE | 2024-03-30 15:32 | XRR_ITS ---
PROCEDURE INFORMATION: Exam: XR Chest Exam date and time: 03/30/2024 3:37 PM Age: 69 years old Clinical indication: Shortness of breath; Additional info: Dyspnea/cough TECHNIQUE: Imaging protocol: Radiologic exam of the chest. Views: 1 view. COMPARISON: CR XR chest 1V portable [id number] 03/29/2024 11:22 AM FINDINGS: Lungs: Unremarkable. No consolidation. Pleural spaces: Unremarkable. No pleural effusion. No pneumothorax. Heart/Mediastinum: Unremarkable. No cardiomegaly. Bones/joints: Degenerative changes of the spine. XR/XR chest 1V portable [id number] IMPRESSION: No acute abnormality.
--- NOTE | 2024-03-30 15:40 | ED_ITS ---
Documented by User: Grant Le DO 04/01/24 05:45 HPI - Chest Pain 2 General: Chief Complaint: Chest Pain Stated Complaint: CHEST PAIN Time Seen by Provider: 03/30/24 15:31 History of Present Illness: 69-year-old male presents emergency room complaining of chest pain. He was seen earlier today for a stress test that was D steerage home after the stress test without symptoms after he left he began to have chest pain again he was given aspirin and route. He describes it as a burning sensation. He did not take any nitro. Stress test was read as negative. He denies any fever sweats or chills denies any recent illness. Associated symptoms: Deny abdominal pain, dyspnea or fever(s) Related Data Home Medications Medication Instructions Recorded Confirmed albuterol sulfate 90 mcg/actuation 2 puff inhalation 6XD PRN 01/23/23 03/29/24 aerosol inhaler Shortness Of Breath Or Wheezing diclofenac sodium 75 mg 75 mg PO BID PRN INFLAMATORY PAIN 12/22/23 03/29/24 tablet,delayed release levothyroxine 75 mcg tablet 75 mcg PO QAM 12/22/23 03/29/24 metoprolol succinate 50 mg 50 mg PO DAILY 12/22/23 03/29/24 tablet,extended release 24 hr sildenafil 100 mg tablet 100 mg PO DAILY PRN Erectile 12/22/23 03/29/24 Dysfunction tamsulosin 0.4 mg capsule 0.4 mg PO DAILY 12/22/23 03/29/24 Previous Rx's Medication Instructions Recorded aspirin 81 mg tablet,delayed 81 mg PO DAILY #30 tabs 01/23/23 release isosorbide mononitrate 30 mg 30 mg PO DAILY #30 tabs 01/23/23 tablet,extended release 24 hr cyclobenzaprine 10 mg tablet 10 mg PO TID PRN muscle spasm #30 06/02/23 tabs Allergies Allergy/AdvReac Type Severity Reaction Status Date / Time Sulfa (Sulfonamide Allergy ALGY-Rash Verified 12/22/23 11:48 Antibiotics) Review of Systems 2 Const: Denies: fever(s) or chills Card: Denies: chest pain Resp: Denies: dyspnea GI: Denies: abdominal pain : Denies: dysuria, urinary frequency or urinary urgency Musc: Denies: neck pain or back pain Skin/Breast: Denies: rash PFSH ED 2 PFSH: Medical History (Updated 03/31/24 @ 00:02 by DANIELA Severino) Obstructive sleep apnea Chronic back pain COPD (chronic obstructive pulmonary disease) Lung cancer Schizophrenia Surgical History (Updated 03/31/24 @ 00:02 by DANIELA Severino) H/O hernia repair Family History Father CAD (coronary artery disease) Mother Postsurgical cardiac pacemaker in situ Social History Smoking and tobacco/nicotine status: current every day tobacco/nicotine user Alcohol intake: never Substance/Drug Use: current Physical Exam 2 Const: COMMON NORMALS: no acute distress GENERAL APPEARANCE: cooperative and comfortable ORIENTATION/CONSCIOUSNESS: Yes awake, Yes oriented to person, Yes oriented to place and Yes oriented to time HENMT: COMMON NORMALS: normocephalic, atraumatic and hearing grossly normal bilaterally HEAD & SCALP: normocephalic and atraumatic Resp: COMMON NORMALS: normal respiratory effort, No retractions, No use of accessory muscles and clear to auscultation bilaterally AUSCULTATION: clear to auscultation bilaterally Cardio: COMMON NORMALS: regular rate, regular rhythm and No murmurs present (Cardio) RATE: regular rate RHYTHM: regular rhythm GI: COMMON NORMALS: Soft to palpation and No hepatosplenomegaly present A USCULTATION: Yes normoactive bowel sounds PALPATION: Yes Soft to palpation, No Tenderness to palpation present (GI), No Guarding due to palpation present (GI) and Yes No hepatosplenomegaly present Extremity: COMMON NORMALS: normal to inspection, capillary refill normal, no clubbing, cyanosis or edema, no calf tenderness and no pedal edema Neuro: SENSORIUM/ORIENTATION: Yes oriented to person, Yes oriented to place and Yes oriented to time Skin: COMMON NORMALS: no rashes or lesions noted GENERAL SKIN EXAM: no rashes or lesions noted Course 2 Vital Signs: Vital signs: Vital Signs Temperature 97.5 F L 03/30/24 15:26 Pulse Rate 69 03/30/24 20:15 Respiratory Rate 18 03/30/24 20:15 Blood Pressure 114/78 03/30/24 20:15 Pulse Oximetry 99 03/30/24 20:15 Oxygen Delivery Me thod Room Air 03/30/24 19:00 MDM - Chest Pain Medical Decision Making Care signed out to Dr. Ramirez at change of shift. See final notes for diagnosis and disposition. Lab Data 03/30/24 16:02 03/30/24 16:02 Radiology Impressions Chest X-Ray 03/30/24 15:32 IMPRESSION: No acute abnormality. Laboratory Results WBC 7.06 10^3/uL (3.29-11.43) 03/30/24 16:02 RBC 4.67 10^6/uL (3.85-5.65) 03/30/24 16:02 Hgb 13.90 g/dL (11.27-16.99) 03/30/24 16:02 Hct 43.1 % (37-53) 03/30/24 16:02 MCV 92.3 fl (82-101) 03/30/24 16:02 MCH 29.8 pg (27-33) 03/30/24 16:02 MCHC 32.3 g/dL (30-55) 03/30/24 16:02 RDW 13.3 % (12.1-15.1) 03/30/24 16:02 Plt Count 222 10^3/cmm (157-399) 03/30/24 16:02 MPV 10.8 fL (7.4-10.4) H 03/30/24 16:02 Neut % (Auto) 67.4 % 03/30/24 16:02 Lymph % (Auto) 24.4 % 03/30/24 16:02 [place] % (Auto) 6.7 % 03/30/24 16:02 Eos % (Auto) 1.0 % 03/30/24 16:02 Baso % (Auto) 0.4 % 03/30/24 16:02 Neut # (Auto) 4.76 10^3/uL (1.8-7.7) 03/30/24 16:02 Lymph # (Auto) 1.7 10^3/uL (0.8-4.8) 03/30/24 16:02 [place] # (Auto) 0.5 10^3/uL (0.2-0.9) 03/30/24 16:02 Eos # (Auto) 0.1 10^3/uL (0.0-0.8) 03/30/24 16:02 Baso # (Auto) 0.0 10^3/uL (0.0-0.1) 03/30/24 16:02 Nucleated RBC % (auto) 0 % 03/30/24 16:02 Nucleated RBCs # 0.0 /100WBC 03/30/24 16:02 Sodium 138 mmol/L (136-145) 03/30/24 16:02 Potassium 3.9 mmol/L (3.5-5.1) 03/30/24 16:02 Chloride 102 mmol/L (98-107) 03/30/24 16:02 Carbon Dioxide 25 mmol/L (22-29) 03/30/24 16:02 Anion Gap 14.9 (5-19) 03/30/24 16:02 BUN 18 mg/dL (8-23) 03/30/24 16:02 Creatinine 0.7 mg/dL (0.7-1.2) 03/30/24 16:02 GFR Calculation 112.5 mL/min (90-130) 03/30/24 16:02 Glucose 138 mg/dL (65-115) H 03/30/24 16:02 Calculated Osmolality 290 mOsm/kg (285-295) 03/30/24 16:02 Calcium 8.7 mg/dL (8.5-10.5) 03/30/24 16:02 Total Bilirubin 0.3 mg/dL (0.15-1.2) 03/30/24 16:02 AST 12 U/L (0-40) 03/30/24 16:02 ALT 11 U/L (0-41) 03/30/24 16:02 Alkaline Phosphatase 80 U/L (40-130) 03/30/24 16:02 Troponin T Baseline 7 ng/L (0-15) 03/30/24 16:02 Troponin T 120 Minute 7.96 ng/L (0-15) 03/30/24 19:04 Delta Troponin T 0.96 ABS# (0-10) 03/30/24 19:04 Total Protein 5.9 g/dL (6.6-8.7) L 03/30/24 16:02 Albumin 3.8 g/dL (3.5-5.2) 03/30/24 16:02 Globulin 2.1 g/dL (1.3-4.6) 03/30/24 16:02 Discharge Plan Discharge Patient Disposition: Home Clinical Impression: Non-cardiac chest pain Condition: Stable Prescriptions: No Action cyclobenzaprine 10 mg tablet 10 mg PO TID PRN (Reason: muscle spasm) Qty: 30 0RF albuterol sulfate 90 mcg/actuation Hfa Aerosol Inhaler 2 puff INHALATION 6XD PRN (Reason: Shortness Of Breath Or Wheezing) aspirin 81 mg tablet,delayed release (DR/EC) 81 mg PO DAILY Qty: 30 0RF isosorbide mononitrate 30 mg tablet extended release 24 hr 30 mg PO DAILY Qty: 30 0RF metoprolol succinate 50 mg tablet extended release 24 hr 50 mg PO DAILY sildenafil 100 mg tablet 100 mg PO DAILY PRN (Reason: Erectile Dysfunction) levothyroxine 75 mcg tablet 75 mcg PO QAM tamsulosin 0.4 mg capsule 0.4 mg PO DAILY diclofenac sodium 75 mg tablet,delayed release (DR/EC) 75 mg PO BID PRN (Reason: INFLAMATORY PAIN) Discharge Orders: Discharge ED (Routine); Ordered 03/30/24 Ordered By: Evonne Ramirez Referrals: Yolette Laguna APN [Primary Care Provider] - Discharge Diet: Usual diet Discharge Activity: Increase activity as tolerated Patient Instructions: Noncardiac Chest Pain (ED), Opioid Safety, Pain Management Activity Restrictions/Additional Instructions: Thank you for choosing [facility] for your healthcare needs today. Please realize this is an emergency room and that we are providing you with a medical screening exam and this may not be complete and all inclusive of all the testing and or work up that you may need to determine your ailment or severity of your illness. You have been screened and evaluated and felt safe for discharge. Health conditions do change or evolve sometimes and as such it is important that you follow up with your Primary Doctor to be re checked, 3-5 days is a general good time frame for follow up. 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 [employer] Documented by User: Evonne Ramirez MD 03/30/24 19:50 HPI - Chest Pain 2 General: Chief Complaint: Chest Pain Stated Complaint: CHEST PAIN Time Seen by Provider: 03/30/24 15:31 Related Data Home Medications Medication Instructions Recorded Confirmed albuterol sulfate 90 mcg/actuation 2 puff inhalation 6XD PRN 01/23/23 03/29/24 aerosol inhaler Shortness Of Breath Or Wheezing diclofenac sodium 75 mg 75 mg PO BID PRN INFLAMATORY PAIN 12/22/23 03/29/24 tablet,delayed release levothyroxine 75 mcg tablet 75 mcg PO QAM 12/22/23 03/29/24 metoprolol succinate 50 mg 50 mg PO DAILY 12/22/23 03/29/24 tablet,extended release 24 hr sildenafil 100 mg tablet 100 mg PO DAILY PRN Erectile 12/22/23 03/29/24 Dysfunction tamsulosin 0.4 mg capsule 0.4 mg PO DAILY 12/22/23 03/29/24 Previous Rx's Medication Instructions Recorded aspirin 81 mg tablet,delayed 81 mg PO DAILY #30 tabs 01/23/23 release isosorbide mononitrate 30 mg 30 mg PO DAILY #30 tabs 01/23/23 tablet,extended release 24 hr cyclobenzaprine 10 mg tablet 10 mg PO TID PRN muscle spasm #30 06/02/23 tabs Allergies Allergy/AdvReac Type Severity Reaction Status Date / Time Sulfa (Sulfonamide Allergy ALGY-Rash Verified 12/22/23 11:48 Antibiotics) PFSH ED 2 PFSH: Medical History (Updated 03/31/24 @ 00:02 by DANIELA Severino) Obstructive sleep apnea Chronic back pain COPD (chronic obstructive pulmonary disease) Lung cancer Schizophrenia Surgical History (Updated 03/31/24 @ 00:02 by DANIELA Severino) H/O hernia repair Family History Father CAD (coronary artery disease) Mother Postsurgical cardiac pacemaker in situ Social History Smoking and tobacco/nicotine status: current every day tobacco/nicotine user Alcohol intake: never Substance/Drug Use: current Course 2 Vital Signs: Vital signs: Vital Signs Temperature 97.5 F L 03/30/24 15:26 Pulse Rate 69 03/30/24 20:15 Respiratory Rate 18 03/30/24 20:15 Blood Pressure 114/78 03/30/24 20:15 Pulse Oximetry 99 03/30/24 20:15 Oxygen Delivery Ri thod Room Air 03/30/24 19:00 MDM - Chest Pain Medical Decision Making Care signed out to Dr. Ramirez at change of shift. See final notes for diagnosis and disposition. Patient care was transitioned to [place] at shift change. Final troponin was pending. Both troponins have been negative. EKGs show nothing ischemic. Patient had a negative stress test. Follow-up with primary care provider. Assessment and plan: Noncardiac chest pain - Discharged home - Discussed plan with patient. Answered any questions. - Evaluation and treatment of this problem were appropriate in the emergency setting. Lab Data 03/30/24 16:02 03/30/24 16:02 Radiology Impressions Chest X-Ray 03/30/24 15:32 IMPRESSION: No acute abnormality. Laboratory Results WBC 7.06 10^3/uL (3.29-11.43) 03/30/24 16:02 RBC 4.67 10^6/uL (3.85-5.65) 03/30/24 16:02 Hgb 13.90 g/dL (11.27-16.99) 03/30/24 16:02 Hct 43.1 % (37-53) 03/30/24 16:02 MCV 92.3 fl (82-101) 03/30/24 16:02 MCH 29.8 pg (27-33) 03/30/24 16:02 MCHC 32.3 g/dL (30-55) 03/30/24 16:02 RDW 13.3 % (12.1-15.1) 03/30/24 16:02 Plt Count 222 10^3/cmm (157-399) 03/30/24 16:02 MPV 10.8 fL (7.4-10.4) H 03/30/24 16:02 Neut % (Auto) 67.4 % 03/30/24 16:02 Lymph % (Auto) 24.4 % 03/30/24 16:02 [place] % (Auto) 6.7 % 03/30/24 16:02 Eos % (Auto) 1.0 % 03/30/24 16:02 Baso % (Auto) 0.4 % 03/30/24 16:02 Neut # (Auto) 4.76 10^3/uL (1.8-7.7) 03/30/24 16:02 Lymph # (Auto) 1.7 10^3/uL (0.8-4.8) 03/30/24 16:02 [place] # (Auto) 0.5 10^3/uL (0.2-0.9) 03/30/24 16:02 Eos # (Auto) 0.1 10^3/uL (0.0-0.8) 03/30/24 16:02 Baso # (Auto) 0.0 10^3/uL (0.0-0.1) 03/30/24 16:02 Nucleated RBC % (auto) 0 % 03/30/24 16:02 Nucleated RBCs # 0.0 /100WBC 03/30/24 16:02 Sodium 138 mmol/L (136-145) 03/30/24 16:02 Potassium 3.9 mmol/L (3.5-5.1) 03/30/24 16:02 Chloride 102 mmol/L (98-107) 03/30/24 16:02 Carbon Dioxide 25 mmol/L (22-29) 03/30/24 16:02 Anion Gap 14.9 (5-19) 03/30/24 16:02 BUN 18 mg/dL (8-23) 03/30/24 16:02 Creatinine 0.7 mg/dL (0.7-1.2) 03/30/24 16:02 GFR Calculation 112.5 mL/min (90-130) 03/30/24 16:02 Glucose 138 mg/dL (65-115) H 03/30/24 16:02 Calculated Osmolality 290 mOsm/kg (285-295) 03/30/24 16:02 Calcium 8.7 mg/dL (8.5-10.5) 03/30/24 16:02 Total Bilirubin 0.3 mg/dL (0.15-1.2) 03/30/24 16:02 AST 12 U/L (0-40) 03/30/24 16:02 ALT 11 U/L (0-41) 03/30/24 16:02 Alkaline Phosphatase 80 U/L (40-130) 03/30/24 16:02 Troponin T Baseline 7 ng/L (0-15) 03/30/24 16:02 Troponin T 120 Minute 7.96 ng/L (0-15) 03/30/24 19:04 Delta Troponin T 0.96 ABS# (0-10) 03/30/24 19:04 Total Protein 5.9 g/dL (6.6-8.7) L 03/30/24 16:02 Albumin 3.8 g/dL (3.5-5.2) 03/30/24 16:02 Globulin 2.1 g/dL (1.3-4.6) 03/30/24 16:02 All radiology interpretation(s) finalized by discharge Discharge Plan Discharge Patient Disposition: Home Clinical Impression: Non-cardiac chest pain Condition: Stable Prescriptions: No Action cyclobenzaprine 10 mg tablet 10 mg PO TID PRN (Reason: muscle spasm) Qty: 30 0RF albuterol sulfate 90 mcg/actuation Hfa Aerosol Inhaler 2 puff INHALATION 6XD PRN (Reason: Shortness Of Breath Or Wheezing) aspirin 81 mg tablet,delayed release (DR/EC) 81 mg PO DAILY Qty: 30 0RF isosorbide mononitrate 30 mg tablet extended release 24 hr 30 mg PO DAILY Qty: 30 0RF metoprolol succinate 50 mg tablet extended release 24 hr 50 mg PO DAILY sildenafil 100 mg tablet 100 mg PO DAILY PRN (Reason: Erectile Dysfunction) levothyroxine 75 mcg tablet 75 mcg PO QAM tamsulosin 0.4 mg capsule 0.4 mg PO DAILY diclofenac sodium 75 mg tablet,delayed release (DR/EC) 75 mg PO BID PRN (Reason: INFLAMATORY PAIN) Discharge Orders: Discharge ED (Routine); Ordered 03/30/24 Ordered By: Evonne Ramirez Referrals: Yolette Laguna APN [Primary Care Provider] - Discharge Diet: Usual diet Discharge Activity: Increase activity as tolerated Patient Instructions: Noncardiac Chest Pain (ED), Opioid Safety, Pain Management Activity Restrictions/Additional Instructions: Thank you for choosing [facility] for your healthcare needs today. Please realize this is an emergency room and that we are providing you with a medical screening exam and this may not be complete and all inclusive of all the testing and or work up that you may need to determine your ailment or severity of your illness. You have been screened and evaluated and felt safe for discharge. Health conditions do change or evolve sometimes and as such it is important that you follow up with your Primary Doctor to be re checked, 3-5 days is a general good time frame for follow up. 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
[2024-03-30 16:17] LABS: Basophils % 0.4 %; Eosinophils # 0.1 10^3/uL (0.0-0.8); Hematocrit 43.1 % (37-53); Lymphocytes # 1.7 10^3/uL (0.8-4.8); Lymphocytes % 24.4 %; Mean Corpuscular HGB Conc 32.3 g/dL (30-55); Mean Corpuscular Hemoglobin 29.8 pg (27-33); Mean Corpuscular Volume 92.3 fl (82-101); Mean Platelet Volume 10.8 fL (7.4-10.4); Monocytes # 0.5 10^3/uL (0.2-0.9); Monocytes % 6.7 %; Neutrophils # 4.76 10^3/uL (1.8-7.7); Neutrophils % 67.4 %; Nucleated Red Blood Cells % 0 %; Platelet Count 222 10^3/cmm (157-399); Red Blood Count 4.67 10^6/uL (3.85-5.65); Red Cell Distribution Width 13.3 % (12.1-15.1); White Blood Count 7.06 10^3/uL (3.29-11.43)
[2024-03-30 16:41] LABS: Troponin(5th) Baseline 7 ng/L (0-15)
[2024-03-30 16:45] LABS: Alanine Aminotransferase 11 U/L (0-41); Albumin Level 3.8 g/dL (3.5-5.2); Alkaline Phosphatase 80 U/L (40-130); Anion Gap 14.9 (5-19); Aspartate Amino Transferase 12 U/L (0-40); Blood Urea Nitrogen 18 mg/dL (8-23); Calcium 8.7 mg/dL (8.5-10.5); Carbon Dioxide 25 mmol/L (22-29); Chloride 102 mmol/L (98-107); Creatinine Clr Calc Pharmacy 100.4475; Globulin 2.1 g/dL (1.3-4.6); Glomerular Filtration Rate 112.5 mL/min (90-130); Glucose 138 mg/dL (65-115); Osmolality Calculated 290 mOsm/kg (285-295); Potassium 3.9 mmol/L (3.5-5.1); Sodium 138 mmol/L (136-145); Total Bilirubin 0.3 mg/dL (0.15-1.2); Total Protein 5.9 g/dL (6.6-8.7)
[2024-03-30 17:06] VITALS: BP 114/99; PULSE 51; O2SAT 100
--- NOTE | 2024-03-30 17:26 | ECG_ITS ---
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 Measurements Intervals [place] Rate: 52 P: 72 VT: 158 QRS: 75 QRSD: 94 T: 74 QT: 427 QTc: 398 Interpretive Statements SINUS BRADYCARDIA VOLTAGE CRITERIA FOR LVH Compared to ECG 03/30/2024 15:29:58 No significant changes Electronically Signed On 03-30-2024 18:02:12 CDT by Brittney Garcia M.D. [email or web address]
[2024-03-30 17:27] VITALS: BP 122/84; BP 140/83; BP 147/91; PULSE 108; PULSE 52; PULSE 64
[2024-03-30] MEDS: lidocaine 2% viscous 15 ML, aluminum-mag hydrox-simethicon 30 ML, sucralfate oral liq 1 GM PO (18:09)
[2024-03-30 18:41] VITALS: BP 127/64; PULSE 54; RESP 14; O2SAT 97
[2024-03-30 19:00] VITALS: BP 119/61; PULSE 63; RESP 14; O2SAT 96
[2024-03-30 19:39] LABS: Troponin 5 2HR 7.96 ng/L (0-15); Troponin 5 2HR Delta 0.96 ABS# (0-10)
[2024-03-30 20:15] VITALS: BP 114/78; PULSE 69; RESP 18; O2SAT 99
== END 2024-03-30 20:16 | disposition home or self-care (01) ==
PROVIDERS: Family Medicine; Emergency Provider Emergency Medicine; PCP Nurse Practitioner Family
DX: R07.89 Other chest pain (principal); Z72.0 Tobacco use; C34.90 Malignant neoplasm of unspecified part of unspecified bronchus or lung; J44.9 Chronic obstructive pulmonary disease, unspecified
CPT/HCPCS: 36415; 71045; 80053; 84484; 85025; 93005; 99285

== ENCOUNTER 2024-06-12 21:12 | Emergency (ER) | payer MEDICARE, MEDICAID, SELFPAY ==
[2024-06-12] VITALS (11 sets, daily range): BP systolic 101–146; BP diastolic 52–85; PULSE 53–67; RESP 12–24; TEMP 36.3; O2SAT 94–98; BMI 20.5
--- NOTE | 2024-06-12 21:17 | XRR_ITS ---
PROCEDURE INFORMATION: Exam: XR Chest Exam date and time: 06/12/2024 9:22 PM Age: 69 years old Clinical indication: Chest pressure; Patient HX: Chest pain; SOB; Additional info: Cp TECHNIQUE: Imaging protocol: Radiologic exam of the chest. Views: 1 view. COMPARISON: CR XR chest 1V portable [id number] 03/30/2024 3:37 PM FINDINGS: Lungs: Unremarkable. No consolidation. Pleural spaces: Unremarkable. No pleural effusion. No pneumothorax. Heart/Mediastinum: Unremarkable. No cardiomegaly. Bones/joints: Unremarkable. XR/XR chest 1V portable [id number] IMPRESSION: No acute findings.
--- NOTE | 2024-06-12 21:17 | ECG_ITS ---
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 Measurements Intervals [place] Rate: 65 P: 91 NC: 167 QRS: 81 QRSD: 75 T: 82 QT: 386 QTc: 403 Interpretive Statements SINUS RHYTHM WITH OCCASIONAL SUPRAVENTRICULAR PREMATURE COMPLEXES MODERATE VOLTAGE CRITERIA FOR LVH, CONSIDER NORMAL VARIANT [MEETS CRITERIA IN ONE OF: R(aVL), S(V1), R(V5), R(V5/V6)+S(V1)] Compared to ECG 03/30/2024 17:26:48 Sinus bradycardia no longer present Electronically Signed On 06-15-2024 00:04:03 PROTOTYPE TECHNICIAN by Gene Shane M.D. [email or web address]
[2024-06-12 21:46] LABS: Basophils % 0.5 %; Eosinophils # 0.1 10^3/uL (0.0-0.8); Eosinophils % 2.2 %; Hematocrit 42.1 % (37-53); Lymphocytes # 1.8 10^3/uL (0.8-4.8); Lymphocytes % 27.8 %; Mean Corpuscular HGB Conc 32.1 g/dL (30-55); Mean Corpuscular Hemoglobin 29.7 pg (27-33); Mean Corpuscular Volume 92.7 fl (82-101); Monocytes # 0.8 10^3/uL (0.2-0.9); Monocytes % 12.9 %; Neutrophils # 3.61 10^3/uL (1.8-7.7); Neutrophils % 56.3 %; Nucleated Red Blood Cells % 0 %; Platelet Count 258 10^3/cmm (157-399); Red Blood Count 4.54 10^6/uL (3.85-5.65); Red Cell Distribution Width 13.2 % (12.1-15.1); White Blood Count 6.41 10^3/uL (3.29-11.43)
[2024-06-12] MEDS: lidocaine 2% viscous 15 ML, aluminum-mag hydrox-simethicon 30 ML, sucralfate oral liq 1 GM PO (21:59)
[2024-06-12] MEDS: ondansetron 2 mg/ML SDV 2 mL 4 MG IVP (22:02)
[2024-06-12] MEDS: morphine 4 mg/mL SDV 1 mL IVP (22:02)
[2024-06-12 22:09] LABS: Troponin(5th) Baseline 7 ng/L (0-15)
--- NOTE | 2024-06-12 22:09 | ED_ITS ---
HPI - Chest Pain 2 General: Chief Complaint: Chest Pain Stated Complaint: CP, SOB Time Seen by Provider: 06/12/24 21:14 History of Present Illness: 69-year-old male patient with no history of significant coronary disease. No stents. He presents with left-sided chest discomfort. He describes it as a burning sensation in his left chest that radiates to his left shoulder. He is short of breath with it, and somewhat nauseated. Nausea is improved after medication in the ambulance. He was also given nitroglycerin which seemed to drop his blood pressure significantly, but has since recovered. Related Data Home Medications Medication Instructions Recorded Confirmed albuterol sulfate 90 mcg/actuation 2 puff inhalation 6XD PRN 01/23/23 03/29/24 aerosol inhaler Shortness Of Breath Or Wheezing diclofenac sodium 75 mg 75 mg PO BID PRN INFLAMATORY PAIN 12/22/23 03/29/24 tablet,delayed release levothyroxine 75 mcg tablet 75 mcg PO QAM 12/22/23 03/29/24 metoprolol succinate 50 mg 50 mg PO DAILY 12/22/23 03/29/24 tablet,extended release 24 hr sildenafil 100 mg tablet 100 mg PO DAILY PRN Erectile 12/22/23 03/29/24 Dysfunction tamsulosin 0.4 mg capsule 0.4 mg PO DAILY 12/22/23 03/29/24 Previous Rx's Medication Instructions Recorded aspirin 81 mg tablet,delayed 81 mg PO DAILY #30 tabs 01/23/23 release isosorbide mononitrate 30 mg 30 mg PO DAILY #30 tabs 01/23/23 tablet,extended release 24 hr cyclobenzaprine 10 mg tablet 10 mg PO TID PRN muscle spasm #30 06/02/23 tabs methylprednisolone 4 mg tablets in See Rx Instructions PO .COMPLEX 06/13/24 a dose pack (Medrol (Bandar)) #21 ea Allergies Allergy/AdvReac Type Severity Reaction Status Date / Time Sulfa (Sulfonamide Allergy ALGY-Rash Verified 12/22/23 11:48 Antibiotics) [facility] ED 2 PFS: Medical History (Updated 06/13/24 @ 00:03 by Anuj Laird DO) Obstructive sleep apnea Chronic back pain COPD (chronic obstructive pulmonary disease) Lung cancer Schizophrenia Surgical History H/O hernia repair Family History Father CAD (coronary artery disease) Mother Postsurgical cardiac pacemaker in situ Social History Smoking and tobacco/nicotine status: current every day tobacco/nicotine user Alcohol intake: never Substance/Drug Use: current Physical Exam 2 Const: COMMON NORMALS: no acute distress GENERAL APPEARANCE: cooperative; not ill appearing and not frail appearing HENMT: COMMON NORMALS: normocephalic, atraumatic and Normal external nose present HEAD & SCALP: normocephalic and atraumatic FACE & SINUS: normal facial exam and face symmetric NOSE: Normal external nose present Eye: COMMON NORMALS: Equal, round and reactive pupils present and EOMs intact bilaterally PUPIL: Yes Equal, round and reactive pupils present Neck/C-Spine: GENERAL: Yes trachea midline Chest: CHEST: Yes Symmetrical chest wall rise Resp: COMMON NORMALS: normal respiratory effort, No retractions, No use of accessory muscles and clear to auscultation bilaterally AUSCULTATION: clear to auscultation bilaterally Cardio: COMMON NORMALS: regular rate and regular rhythm RATE: regular rate RHYTHM: regular rhythm GI: COMMON NORMALS: Normal to inspection, nondistended, normoactive bowel sounds present Extremity: COMMON NORMALS: no pedal edema Neuro: ROHAN COMA SCALE: document GCS findings [place] coma scale eye opening: Spontaneous Rohan coma scale verbal response: Orientated Rohan coma scale motor response: Obey commands [place] coma scale total score: 15 S ENSORY EXAM: Yes extremities (intact) Psych: COMMON NORMALS: speech normal SPEECH: Yes normal speech Skin: COMMON NORMALS: no rashes or lesions noted GENERAL SKIN EXAM: no rashes or lesions noted Course 2 Vital Signs: Vital signs: Vital Signs Temperature 97.4 F L 06/12/24 21:12 Pulse Rate 51 L 06/13/24 00:59 Respiratory Rate 14 06/13/24 00:59 Blood Pressure 102/58 06/13/24 00:59 Pulse Oximetry 94 06/13/24 00:59 Oxygen Delivery Me thod Room Air 06/12/24 21:12 MDM - Chest Pain Medical Decision Making 69-year-old male patient presenting with left-sided chest discomfort. Pain is somewhat atypical in nature. CBC is normal. BMP is normal. His vitals are good. Chest x-ray is nonacute. Troponin stayed normal at 2 hours. Pain is relieved with morphine and GI cocktail here. With improvement of symptoms, no EKG changes, no elevation in his troponin, normal chest x-ray, he will be allowed discharge. To return for any worsening symptoms. Lab Data 06/12/24 21:28 06/12/24: Radiology Impressions Chest X-Ray 06/12/24 21:17 IMPRESSION: No acute findings. Laboratory Results WBC 6.41 10^3/uL (3.29-11.43) 06/12/24: RBC 4.54 10^6/uL (3.85-5.65) 06/12/24: Hgb 13.50 g/dL (11.27-16.99) 06/12/24: Hct 42.1 % (37-53) 06/12/24: MCV 92.7 fl (82-101) 06/12/24: MCH 29.7 pg (27-33) 06/12/24: MCHC 32.1 g/dL (30-55) 06/12/24: RDW 13.2 % (12.1-15.1) 06/12/24: Plt Count 258 10^3/cmm (157-399) 06/12/24: MPV 10.0 fL (7.4-10.4) 06/12/24: Neut % (Auto) 56.3 % 06/12/24: Lymph % (Auto) 27.8 % 06/12/24: [place] % (Auto) 12.9 % 06/12/24: Eos % (Auto) 2.2 % 06/12/24: Baso % (Auto) 0.5 % 06/12/24: Neut # (Auto) 3.61 10^3/uL (1.8-7.7) 06/12/24: Lymph # (Auto) 1.8 10^3/uL (0.8-4.8) 06/12/24: [place] # (Auto) 0.8 10^3/uL (0.2-0.9) 06/12/24: Eos # (Auto) 0.1 10^3/uL (0.0-0.8) 06/12/24: Baso # (Auto) 0.0 10^3/uL (0.0-0.1) 06/12/24: Nucleated RBC % (auto) 0 % 06/12/24: Nucleated RBCs # 0.0 /100WBC 06/12/24: Sodium 139 mmol/L (136-145) 06/12/24: Potassium 4.3 mmol/L (3.5-5.1) 06/12/24: Chloride 103 mmol/L (98-107) 06/12/24: Carbon Dioxide 27 mmol/L (22-29) 06/12/24: Anion Gap 13.3 (5-19) 06/12/24: BUN 21 mg/dL (8-23) 06/12/24: Creatinine 0.7 mg/dL (0.7-1.2) 06/12/24: GFR Calculation 112.5 mL/min (90-130) 06/12/24: Glucose 101 mg/dL (65-115) 06/12/24: Calculated Osmolality 291 mOsm/kg (285-295) 06/12/24: Calcium 9.3 mg/dL (8.5-10.5) 06/12/24: Total Bilirubin 0.2 mg/dL (0.15-1.2) 06/12/24: AST 15 U/L (0-40) 06/12/24: ALT 14 U/L (0-41) 06/12/24: Alkaline Phosphatase 82 U/L (40-130) 06/12/24: Troponin T Baseline 7 ng/L (0-15) 06/12/24: Troponin T 120 Minute 7.42 ng/L (0-15) 06/12/24: Delta Troponin T 0.42 ABS# (0-10) 06/12/24 23: NT-Pro-B Natriuret Pep 104 pg/mL (0-125) 06/12/24: Total Protein 6.0 g/dL (6.6-8.7) L 06/12/24 21:28 Albumin 3.9 g/dL (3.5-5.2) 06/12/24 21:28 Globulin 2.1 g/dL (1.3-4.6) 06/12/24 21:28 All radiology interpretation(s) finalized by discharge Discharge Plan Discharge Patient Disposition: Home Clinical Impression: Atypical chest pain Condition: Stable Prescriptions: New methylprednisolone [Medrol (Bandar)] 4 mg tablets,dose pack See Rx Instructions .ROUTE .COMPLEX Qty: 21 0RF Rx Instructions: orally per package directions No Action cyclobenzaprine 10 mg tablet 10 mg PO TID PRN (Reason: muscle spasm) Qty: 30 0RF albuterol sulfate 90 mcg/actuation Hfa Aerosol Inhaler 2 puff INHALATION 6XD PRN (Reason: Shortness Of Breath Or Wheezing) aspirin 81 mg tablet,delayed release (DR/EC) 81 mg PO DAILY Qty: 30 0RF isosorbide mononitrate 30 mg tablet extended release 24 hr 30 mg PO DAILY Qty: 30 0RF metoprolol succinate 50 mg tablet extended release 24 hr 50 mg PO DAILY sildenafil 100 mg tablet 100 mg PO DAILY PRN (Reason: Erectile Dysfunction) levothyroxine 75 mcg tablet 75 mcg PO QAM tamsulosin 0.4 mg capsule 0.4 mg PO DAILY diclofenac sodium 75 mg tablet,delayed release (DR/EC) 75 mg PO BID PRN (Reason: INFLAMATORY PAIN) Discharge Orders: Discharge ED (Routine); Ordered 06/13/24 Ordered By: Anuj Laird Referrals: Jase,Yolette LINE LEADER [Primary Care Provider] - 4-7 days Patient Instructions: Chest Pain (ED), Opioid Safety, Pain Management Activity Restrictions/Additional Instructions: Return for worsening pain despite treatment, worsening shortness of breath cough, fever, vomiting, other concerning symptoms. See your doctor this week. Call tomorrow for an appointment. Coding Level of Care Code ED Advertising Assistant for Italo Feliciano
[2024-06-12 22:16] LABS: Alanine Aminotransferase 14 U/L (0-41); Albumin Level 3.9 g/dL (3.5-5.2); Alkaline Phosphatase 82 U/L (40-130); Anion Gap 13.3 (5-19); Aspartate Amino Transferase 15 U/L (0-40); Blood Urea Nitrogen 21 mg/dL (8-23); Calcium 9.3 mg/dL (8.5-10.5); Carbon Dioxide 27 mmol/L (22-29); Chloride 103 mmol/L (98-107); Creatinine Clr Calc Pharmacy 99.2977; Globulin 2.1 g/dL (1.3-4.6); Glomerular Filtration Rate 112.5 mL/min (90-130); Glucose 101 mg/dL (65-115); NT Pro B Type Natriuretic Pept 104 pg/mL (0-125); Osmolality Calculated 291 mOsm/kg (285-295); Potassium 4.3 mmol/L (3.5-5.1); Sodium 139 mmol/L (136-145); Total Bilirubin 0.2 mg/dL (0.15-1.2)
[2024-06-12 23:47] LABS: Troponin 5 2HR 7.42 ng/L (0-15); Troponin 5 2HR Delta 0.42 ABS# (0-10)
[2024-06-13] VITALS: BP 104/58; PULSE 57; RESP 12; O2SAT 98
[2024-06-13 00:15] VITALS: BP 126/76; PULSE 59; RESP 13; O2SAT 98
[2024-06-13 00:30] VITALS: BP 91/62; PULSE 51; RESP 18; O2SAT 95
[2024-06-13 00:59] VITALS: BP 102/58; PULSE 51; RESP 14; O2SAT 94
== END 2024-06-13 01:09 | disposition home or self-care (01) ==
PROVIDERS: Emergency Provider Emergency Medicine; PCP Nurse Practitioner Family
DX: R07.89 Other chest pain (principal); Z79.82 Long term (current) use of aspirin; Z72.0 Tobacco use; J44.9 Chronic obstructive pulmonary disease, unspecified; Z85.118 Personal history of other malignant neoplasm of bronchus and lung
CPT/HCPCS: 36415; 71045; 80053; 83880; 84484; 85025; 93005; 96374; 96375; 99285; J2270; J2405

== ENCOUNTER 2024-06-13 02:11 | Observation (INO) | payer MEDICARE, MEDICAID, SELFPAY ==
[2024-06-13] VITALS (15 sets, daily range): BP systolic 89–142; BP diastolic 38–85; PULSE 44–96; RESP 10–21; TEMP 36.3; O2SAT 93–98; BMI 20.5
[2024-06-13] MEDS: atropine 0.1 mg/mL Syr 10 mL 0.5 MG IVP (02:23)
[2024-06-13] MEDS: sodium chloride 0.9% 1,000 ML 999 ML IV (02:24)
--- NOTE | 2024-06-13 02:27 | ED_ITS ---
HPI - Syncope 2 General: Chief Complaint: Syncope Stated Complaint: Chest Pain History of Present Illness: 69-year-old male patient was seen anamika willson in the evening with chest discomfort. It had improved after GI cocktail and morphine here. He was discharged, and was evidently in the waiting room. He states that he woke up on the floor. His heart rate was noted to be low, as well as his blood pressure. He is feeling faint. He is able to answer all questions appropriately. Initial heart rate was 44. Heart rate currently is 51, initial blood pressure was low, as low as 70 systolic, but has improved at this point to 90 systolic. He still complaining of a burning sensation in his left chest, and now has a mild to moderate headache. Related Data Home Medications Medication Instructions Recorded Confirmed albuterol sulfate 90 mcg/actuation 2 puff inhalation 6XD PRN 01/23/23 03/29/24 aerosol inhaler Shortness Of Breath Or Wheezing diclofenac sodium 75 mg 75 mg PO BID PRN INFLAMATORY PAIN 12/22/23 03/29/24 tablet,delayed release levothyroxine 75 mcg tablet 75 mcg PO QAM 12/22/23 03/29/24 metoprolol succinate 50 mg 50 mg PO DAILY 12/22/23 03/29/24 tablet,extended release 24 hr sildenafil 100 mg tablet 100 mg PO DAILY PRN Erectile 12/22/23 03/29/24 Dysfunction tamsulosin 0.4 mg capsule 0.4 mg PO DAILY 12/22/23 03/29/24 Previous Rx's Medication Instructions Recorded aspirin 81 mg tablet,delayed 81 mg PO DAILY #30 tabs 01/23/23 release isosorbide mononitrate 30 mg 30 mg PO DAILY #30 tabs 01/23/23 tablet,extended release 24 hr cyclobenzaprine 10 mg tablet 10 mg PO TID PRN muscle spasm #30 06/02/23 tabs methylprednisolone 4 mg tablets in See Rx Instructions PO .COMPLEX 06/13/24 a dose pack (Medrol (Bandar)) #21 ea Allergies Allergy/AdvReac Type Severity Reaction Status Date / Time Sulfa (Sulfonamide Allergy ALGY-Rash Verified 12/22/23 11:48 Antibiotics) [facility] ED 2 PFS: Medical History (Updated 06/13/24 @ 04:09 by Anuj Laird DO) Obstructive sleep apnea Chronic back pain COPD (chronic obstructive pulmonary disease) Lung cancer Schizophrenia Surgical History H/O hernia repair Family History Father CAD (coronary artery disease) Mother Postsurgical cardiac pacemaker in situ Social History Smoking and tobacco/nicotine status: current every day tobacco/nicotine user Alcohol intake: never Substance/Drug Use: current Physical Exam 2 Const: COMMON NORMALS: no acute distress GENERAL APPEARANCE: cooperative, lethargic and ill appearing; not frail appearing ORIENTATION/CONSCIOUSNESS: Yes lethargic HENMT: COMMON NORMALS: normocephalic, atraumatic and Normal external nose present HEAD & SCALP: normocephalic and atraumatic FACE & SINUS: normal facial exam and face symmetric NOSE: Normal external nose present Eye: COMMON NORMALS: Equal, round and reactive pupils present and EOMs intact bilaterally PUPIL: Yes Equal, round and reactive pupils present Neck/C-Spine: GENERAL: Yes trachea midline Chest: CHEST: Yes Symmetrical chest wall rise Resp: COMMON NORMALS: normal respiratory effort, No retractions, No use of accessory muscles and clear to auscultation bilaterally AUSCULTATION: clear to auscultation bilaterally Cardio: COMMON NORMALS: regular rhythm RATE: bradycardic RHYTHM: regular rhythm GI: COMMON NORMALS: Normal to inspection, nondistended, normoactive bowel sounds present Extremity: COMMON NORMALS: no pedal edema Neuro: ROHAN COMA SCALE: document GCS findings Rohan coma scale eye opening: Spontaneous [place] coma scale verbal response: Orientated [place] coma scale motor response: Obey commands Rohan coma scale total score: 15 S ENSORIUM/ORIENTATION: Yes lethargic SENSORY EXAM: Yes extremities (intact) Psych: COMMON NORMALS: speech normal SPEECH: Yes normal speech Skin: COMMON NORMALS: no rashes or lesions noted GENERAL SKIN EXAM: no rashes or lesions noted Course 2 Vital Signs: Vital signs: Vital Signs Temperature 97.4 F L 06/13/24 02:12 Pulse Rate 51 L 06/13/24 03:30 Respiratory Rate 13 06/13/24 03:30 Blood Pressure 122/70 06/13/24 03:30 Pulse Oximetry 97 06/13/24 03:30 Oxygen Delivery Me thod Room Air 06/13/24 02:12 MDM - Syncope Medical Decision Making The patient initially had a quite low heart rate, 43-45, sinus bradycardia, without corresponding low blood pressure. Half milligram atropine push was given at the bedside without improvement in the heart rate initially. Blood pressure did improve to some degree. Currently heart rate is 53. He was started on IV fluid bolus. Rate has remained around 50. It is sinus. Blood pressure 90s over 50s. Other vitals are stable. With instances of profound bradycardia, with syncopal episode, and hypotension, the patient will be observed. Head CT is negative. Lab Data 06/13/24 02:29 06/13/24 02:29 Radiology Impressions Chest X-Ray 06/13/24 02:31 IMPRESSION: No acute findings. Suspected skin fold overlying the lateral aspect of the right upper thorax mimicking a pneumothorax. Repeat chest x-ray with expiration recommended. Head CT 06/13/24 02:31 IMPRESSION: No acute intracranial abnormality. Laboratory Results WBC 7.82 10^3/uL (3.29-11.43) 06/13/24 02:29 RBC 4.47 10^6/uL (3.85-5.65) 06/13/24 02:29 Hgb 13.40 g/dL (11.27-16.99) 06/13/24 02:29 Hct 42.2 % (37-53) 06/13/24 02:29 MCV 94.4 fl (82-101) 06/13/24 02: MCH 30.0 pg (27-33) 06/13/24 02: MCHC 31.8 g/dL (30-55) 06/13/24 02: RDW 13.4 % (12.1-15.1) 06/13/24 02:29 Plt Count 261 10^3/cmm (157-399) 06/13/24 02: MPV 10.0 fL (7.4-10.4) 06/13/24 02:29 Neut % (Auto) 43.1 % 06/13/24 02: Lymph % (Auto) 43.2 % 06/13/24 02: [place] % (Auto) 11.1 % 06/13/24 02:29 Eos % (Auto) 2.0 % 06/13/24 02: Baso % (Auto) 0.5 % 06/13/24 02: Neut # (Auto) 3.36 10^3/uL (1.8-7.7) 06/13/24 02: Lymph # (Auto) 3.4 10^3/uL (0.8-4.8) 06/13/24 02: [place] # (Auto) 0.9 10^3/uL (0.2-0.9) 06/13/24 02: Eos # (Auto) 0.2 10^3/uL (0.0-0.8) 06/13/24 02: Baso # (Auto) 0.0 10^3/uL (0.0-0.1) 06/13/24 02: Nucleated RBC % (auto) 0 % 06/13/24 02: Nucleated RBCs # 0.0 /100WBC 06/13/24 02: PT 12.90 SECONDS (12.1-14.9) 06/13/24 02: INR 0.91 (0.8-1.2) 06/13/24 02: APTT 25.8 SECONDS (23.9-36.7) 06/13/24 02:29 Sodium 140 mmol/L (136-145) 06/13/24 02: Potassium 4.9 mmol/L (3.5-5.1) 06/13/24 02: Chloride 104 mmol/L (98-107) 06/13/24 02: Carbon Dioxide 27 mmol/L (22-29) 06/13/24 02:29 Anion Gap 13.9 (5-19) 06/13/24 02:29 BUN 22 mg/dL (8-23) 06/13/24 02:29 Creatinine 0.9 mg/dL (0.7-1.2) 06/13/24 02:29 GFR Calculation 84.2 mL/min (90-130) L 06/13/24 02:29 Glucose 135 mg/dL (65-115) H 06/13/24 02:29 POC Glucose 115 mg/dL (70-110) H 06/13/24 02:36 Calculated Osmolality 295 mOsm/kg (285-295) 06/13/24 02:29 Calcium 8.9 mg/dL (8.5-10.5) 06/13/24 02:29 Total Bilirubin 0.3 mg/dL (0.15-1.2) 06/13/24 02:29 AST 16 U/L (0-40) 06/13/24 02:29 ALT 14 U/L (0-41) 06/13/24 02:29 Alkaline Phosphatase 78 U/L (40-130) 06/13/24 02:29 Troponin T Baseline 9 ng/L (0-15) 06/13/24 02:29 NT-Pro-B Natriuret Pep 121 pg/mL (0-125) 06/13/24 02:29 Total Protein 5.6 g/dL (6.6-8.7) L 06/13/24 02:29 Albumin 3.8 g/dL (3.5-5.2) 06/13/24 02:29 Globulin 1.8 g/dL (1.3-4.6) 06/13/24 02:29 All radiology interpretation(s) finalized by discharge Discharge Plan Discharge Patient Disposition: Placed in Observation Clinical Impression: Syncope, Bradycardia, Atypical chest pain Condition: Stable Prescriptions: No Action cyclobenzaprine 10 mg tablet 10 mg PO TID PRN (Reason: muscle spasm) Qty: 30 0RF albuterol sulfate 90 mcg/actuation Hfa Aerosol Inhaler 2 puff INHALATION 6XD PRN (Reason: Shortness Of Breath Or Wheezing) aspirin 81 mg tablet,delayed release (DR/EC) 81 mg PO DAILY Qty: 30 0RF isosorbide mononitrate 30 mg tablet extended release 24 hr 30 mg PO DAILY Qty: 30 0RF metoprolol succinate 50 mg tablet extended release 24 hr 50 mg PO DAILY sildenafil 100 mg tablet 100 mg PO DAILY PRN (Reason: Erectile Dysfunction) levothyroxine 75 mcg tablet 75 mcg PO QAM tamsulosin 0.4 mg capsule 0.4 mg PO DAILY diclofenac sodium 75 mg tablet,delayed release (DR/EC) 75 mg PO BID PRN (Reason: INFLAMATORY PAIN) methylprednisolone [Medrol (Bandar)] 4 mg tablets,dose pack See Rx Instructions .ROUTE .COMPLEX Qty: 21 0RF Rx Instructions: orally per package directions Referrals: Jase,HUMBERTO De La Vega [Primary Care Provider] - Coding Level of Care Code ED [place] Man for Italo Feliciano
--- NOTE | 2024-06-13 02:31 | XRR_ITS ---
PROCEDURE INFORMATION: Exam: XR Chest Exam date and time: 06/13/2024 2:55 AM Age: 69 years old Clinical indication: Other: Syncope; Patient HX: Syncopal episode. History of lung cancer. ; Additional info: Syncope, chest pain TECHNIQUE: Imaging protocol: Radiologic exam of the chest. Views: 1 view. COMPARISON: CR (CHEST, ) 06/12/2024 9:22 PM FINDINGS: Lungs: Unremarkable. No consolidation. Pleural spaces: Unremarkable. No pleural effusion. No pneumothorax. There is a skin fold overlying the lateral aspect of the right upper thorax. Heart/Mediastinum: Unremarkable. No cardiomegaly. Bones/joints: Unremarkable. XR/XR chest 1V portable [id number] IMPRESSION: No acute findings. Suspected skin fold overlying the lateral aspect of the right upper thorax mimicking a pneumothorax. Repeat chest x-ray with expiration recommended.
--- NOTE | 2024-06-13 02:31 | CTR_ITS ---
PROCEDURE INFORMATION: Exam: CT Head Without Contrast Exam date and time: 06/13/2024 3:03 AM Age: 69 years old Clinical indication: Syncope and collapse; Patient HX: Syncopal episode TECHNIQUE: Imaging protocol: Computed tomography of the head without contrast. Radiation optimization: All CT scans at this facility use at least one of these dose optimization techniques: automated exposure control; mA and/or kV adjustment per patient size (includes targeted exams where dose is matched to clinical indication); or iterative reconstruction. COMPARISON: CT angio headneck* [id number] 03/24/2018 4:38 PM RADIATION DOSE METRICS: Total DLP (mGy-cm): 1078.68 FINDINGS: Brain: Advanced periventricular white matter changes likely related to chronic ischemic small vessel disease. No intracranial mass, hemorrhage or recent infarct. Cerebral ventricles: No ventriculomegaly. Paranasal sinuses: Visualized sinuses are unremarkable. No fluid levels. Mastoid air cells: Visualized mastoid air cells are well aerated. Bones: Unremarkable. No acute fracture. Soft tissues: Unremarkable. CT/CT head wo con* [id number] IMPRESSION: No acute intracranial abnormality.
[2024-06-13 02:39] LABS: Glucose Point of Care 115 mg/dL (70-110)
[2024-06-13 02:40] LABS: Basophils % 0.5 %; Eosinophils # 0.2 10^3/uL (0.0-0.8); Hematocrit 42.2 % (37-53); Lymphocytes # 3.4 10^3/uL (0.8-4.8); Lymphocytes % 43.2 %; Mean Corpuscular HGB Conc 31.8 g/dL (30-55); Mean Corpuscular Volume 94.4 fl (82-101); Monocytes # 0.9 10^3/uL (0.2-0.9); Monocytes % 11.1 %; Neutrophils # 3.36 10^3/uL (1.8-7.7); Neutrophils % 43.1 %; Nucleated Red Blood Cells % 0 %; Platelet Count 261 10^3/cmm (157-399); Red Blood Count 4.47 10^6/uL (3.85-5.65); Red Cell Distribution Width 13.4 % (12.1-15.1); White Blood Count 7.82 10^3/uL (3.29-11.43)
[2024-06-13] MEDS: naloxone 0.4 mg/ml SDV IVP (02:42)
[2024-06-13 02:53] LABS: INR 0.91 (0.8-1.2)
[2024-06-13 02:54] LABS: Partial Thromboplastin Time 25.8 SECONDS (23.9-36.7)
[2024-06-13 03:03] LABS: Troponin(5th) Baseline 9 ng/L (0-15)
[2024-06-13 03:13] LABS: Alanine Aminotransferase 14 U/L (0-41); Albumin Level 3.8 g/dL (3.5-5.2); Alkaline Phosphatase 78 U/L (40-130); Blood Urea Nitrogen 22 mg/dL (8-23); Calcium 8.9 mg/dL (8.5-10.5); Carbon Dioxide 27 mmol/L (22-29); Chloride 104 mmol/L (98-107); Creatinine Clr Calc Pharmacy 88.2647; Globulin 1.8 g/dL (1.3-4.6); Glomerular Filtration Rate 84.2 mL/min (90-130); Glucose 135 mg/dL (65-115); NT Pro B Type Natriuretic Pept 121 pg/mL (0-125); Osmolality Calculated 295 mOsm/kg (285-295); Sodium 140 mmol/L (136-145); Total Bilirubin 0.3 mg/dL (0.15-1.2); Total Protein 5.6 g/dL (6.6-8.7)
[2024-06-13 03:21] LABS: Anion Gap 13.9 (5-19); Aspartate Amino Transferase 16 U/L (0-40); Potassium 4.9 mmol/L (3.5-5.1)
--- NOTE | 2024-06-13 03:48 | P.HP_ITS ---
Providers/Chief Complaint 2 Primary Care Provider: Yolette Laguna APN Chief Complaint: Chest Pain History of Present Illness Mario Schmitt is a 69 year old male without significant past medical history,, nicotine abuse, COPD, presented to the hospital with chief complaint of chest pain, generalized weakness and fatigue. Patient is not endorsing any previous history of IA or stents in the heart. Patient was evaluated in the ER initially for chest pain troponins were unremarkable he was discharged however in the waiting room patient had a syncopal event, he was bradycardic with low blood pressure, he was given atropine, IV fluids at the time of evaluation patient is not endorsing chest pain but stating that he felt burning sensation he is pointing towards his left chest area, patient smokes 1 to 2 packs/day, no associated shortness of breath, fever nausea or vomiting. Review of records revealed patient has preserved ejection fraction, his stress test was done few months ago which was unremarkable He does have hypertension with LVH Patient takes metoprolol succinate which will be held secondary to bradycardia Hospitalist was consulted to admit the patient after syncopal event in the waiting room Patient is hemodynamically stable GCS 15 NIH 0 at the time of evaluation Review of Systems 2 Const: Denies: fever(s) Eyes: Denies: change in vision ENMT: Denies: throat pain Card: Reports: chest pain Resp: Denies: dyspnea GI: Denies: abdominal pain Medications/Allergies Home Medications Medication Instructions Recorded Confirmed Last Taken Type albuterol sulfate 90 mcg/actuation 2 puff inhalation 6XD PRN 01/23/23 03/29/24 03/28/24 History aerosol inhaler Shortness Of Breath Or Wheezing aspirin 81 mg tablet,delayed 81 mg PO DAILY #30 tabs 01/23/23 03/29/24 03/28/24 Rx release isosorbide mononitrate 30 mg 30 mg PO DAILY #30 tabs 01/23/23 03/29/24 03/28/24 Rx tablet,extended release 24 hr cyclobenzaprine 10 mg tablet 10 mg PO TID PRN muscle spasm #30 06/02/23 03/29/24 03/28/24 Rx tabs diclofenac sodium 75 mg 75 mg PO BID PRN INFLAMATORY PAIN 12/22/23 03/29/24 03/28/24 History tablet,delayed release levothyroxine 75 mcg tablet 75 mcg PO QAM 12/22/23 03/29/24 03/28/24 History metoprolol succinate 50 mg 50 mg PO DAILY 12/22/23 03/29/24 03/28/24 History tablet,extended release 24 hr sildenafil 100 mg tablet 100 mg PO DAILY PRN Erectile 12/22/23 03/29/24 03/28/24 History Dysfunction tamsulosin 0.4 mg capsule 0.4 mg PO DAILY 12/22/23 03/29/24 03/28/24 History methylprednisolone 4 mg tablets in See Rx Instructions PO .COMPLEX 06/13/24 Unknown Rx a dose pack (Medrol (Bandar)) #21 ea Allergies Allergy/AdvReac Type Severity Reaction Status Date / Time Sulfa (Sulfonamide Allergy ALGY-Rash Verified 12/22/23 11:48 Antibiotics) PFSH Acute 2 PFSH: Medical History (Updated 06/13/24 @ 03:55 by Zach Calderón MD) Obstructive sleep apnea Chronic back pain COPD (chronic obstructive pulmonary disease) Lung cancer Schizophrenia Surgical History H/O hernia repair Family History Father CAD (coronary artery disease) Mother Postsurgical cardiac pacemaker in situ Social History Smoking and tobacco/nicotine status: current every day tobacco/nicotine user Alcohol intake: never Substance/Drug Use: current Vitals/I&O/Wt Last Vital Signs Temp 97.4 F L 06/13/24 02:12 Pulse 51 L 06/13/24 03:30 Resp 13 06/13/24 03:30 BP 122/70 06/13/24 03:30 Pulse Ox 97 06/13/24 03:30 O2 Del Method Room Air 06/13/24 02:12 Weight last 48 hrs Weight 72.575 kg Physical Exam 2 Narrative: Awake and alert Hemodynamically stable Heart rate 55 Sinus tachycardia with PVCs on telemetry No active chest pain Dehydrated Awake and alert nonfocal neuroexam Pleasant and cooperative S1, S2 Currently on room air Nonfocal neuroexam Data 06/13/24 02:29 06/13/24 02:29 A&P Assessment and plan (1) Methamphetamine abuse: (2) Schizophrenia: (3) H/O hernia repair: (4) Lung cancer: (5) COPD (chronic obstructive pulmonary disease): Qualifiers: COPD type: COPD with acute exacerbation Qualified Code(s): J44.1 - Chronic obstructive pulmonary disease with (acute) exacerbation (6) Obstructive sleep apnea: (7) Atypical chest pain: (8) Syncope: Plan Syncope Vasovagal? Patient is bradycardic Hold metoprolol Continue levothyroxine Patient was recently admitted to the hospital for chest pain evaluation stress test was negative Echo unremarkable with preserve ejection fraction LVH Requested drug screen patient is an active smoker history of methamphetamine abuse Check TSH, D-dimer, B12 At the time of evaluation patient hemodynamically stable no response to atropine at all in the ER EKG showing sinus bradycardia with PVCs Full code Cardiac diet DVT prophylaxis Lovenox Patient may need Holter monitor at the time of discharge Attestations 2 Medical Necessity Statement*: Anticipating discharge within 48 hours Diagnoses Methamphetamine abuse F15.10 Schizophrenia F20.9 H/O hernia repair Z98.890; Z87.19 Lung cancer C34.90 Chronic obstructive pulmonary disease with acute exacerbation J44.1 COPD type: COPD with acute exacerbation Obstructive sleep apnea G47.33 Atypical chest pain R07.89 Syncope R55
[2024-06-13 04:18] LABS: D Dimer 0.39 ug/mLFEU (0-0.59)
--- NOTE | 2024-06-13 04:54 | ECG_ITS ---
[facility] USINE IO Test Date: 2024-06-13 Pat Name: Mario Schmitt Department: Room: Gender: Male Contracting Specialist: : 1955 Requested By: Anuj Garcia Order Number: [id number] Reading MD: Measurements Intervals [place] Rate: 47 P: 79 MD: 136 QRS: 84 QRSD: 93 T: 81 QT: 485 QTc: 429 Interpretive Statements SINUS BRADYCARDIA MODERATE VOLTAGE CRITERIA FOR LVH, CONSIDER NORMAL VARIANT [MEETS CRITERIA IN ONE OF: R(aVL), S(V1), R(V5), R(V5/V6)+S(V1)] [email or web address]
[2024-06-13 04:59] LABS: Troponin 5 2HR 9.26 ng/L (0-15); Troponin 5 2HR Delta 0.26 ABS# (0-10)
[2024-06-13 05:39] LABS: Vitamin B12 278 pg/mL (232-1245)
[2024-06-13] MEDS: levothyroxine 75 mcg Tablet PO (05:53)
[2024-06-13] MEDS: enoxaparin 40 mg/0.4 mL Syringe SUBCUT (05:53)
--- NOTE | 2024-06-13 07:59 | USCV_ITS ---
Mario Schmitt Age: 69 Gender: M : 1955 Exam Date: 06/13/2024 09:39 Ordering Phys: Johann Wakefield MD Technologist: Exam Location: [facility] Indication: ? ef BP: 129 / 65 HR: Rhythm: Sinus Technical Quality: Adequate MEASUREMENTS (Male / Female) Normal Values 2D ECHO LV Diastolic Diameter PLAX 4.2 cm 4.2 - 5.9 / 3.9 - 5.3 cm IVS Diastolic Thickness 1.0 cm 0.6 - 1.0 / 0.6 - 0.9 cm IVS Systolic Thickness 1.8 cm LVPW Diastolic Thickness 1.1 cm 0.6 - 1.0 / 0.6 - 0.9 cm LVPW Systolic Thickness 1.5 cm LVOT Diameter 2.1 cm LV Ejection Fraction 2D Teich 68.3 % LV Ejection Fraction MOD 4C 64.6 % LV Ejection Fraction MOD 2C 64.6 % LV Ejection Fraction 2C AL 64.4 % LA Diameter 3.7 cm RA Systolic Volume 4C AL 31.1 ml RA Systolic Volume 4C MOD 30.0 ml Aorta at Sinotubular Diameter 2.8 cm IVC Diameter 1.6 cm M-MODE LA Ao Ratio MM 1.1 AV Cusp Separation MM 2.0 cm FINDINGS Left Ventricle Normal left ventricular size and systolic function, EF 68%. No regional wall motion abnormalities. Right Ventricle Normal right ventricular size and systolic function. Right Atrium Normal right atrial size. Left Atrium Normal left atrial size. Mitral Valve Thickened mitral valve. Aortic Valve Thickened aortic valve. Tricuspid Valve No gross abnormalities no Pulmonic Valve No gross abnormalities noted Pericardium Normal pericardium without effusion. Aorta Normal ascending aorta dimension. IVC The inferior vena cava appears normal. CONCLUSIONS Normal left ventricular size and systolic function, EF 68%. No regional wall motion abnormalities. Thickened mitral valve. Thickened aortic valve. There is no pericardial effusion. There are no intracardiac masses. Compared to the study from 03/29/2024, there may not be a significant change Dr Gene Shane MD FACC (Electronically Signed) Final Date: 13 June 2024 14:30 S
[2024-06-13] MEDS: aspirin 81 mg EC Tablet PO (08:07)
[2024-06-13] MEDS: pantoprazole 40 mg SDV IVP (08:07)
--- NOTE | 2024-06-13 08:30 | PC.PHAR ---
Spoke to pt about Isosorbide Mononitrate 30mg daily-last fill was 07/31/23. Pt states his medications got all mixed up and he has attempted to get them all straightened out. This med is on his last discharge paperwork but has not filled in about 10 months so he agreed that it needs removed from his med list.
--- NOTE | 2024-06-13 09:04 | P.PN_ITS ---
Subjective 2 Subjective: He denies chest pain or pressure. Heart rate still appears to fluctuate between 40s and low 50s. He reports that on the way to the ER he was tachycardic. He reports also at home he has been feeling pauses and skipped beats. He states he has so far stopped using amphetamine as it has not been available. Vitals/I&O/Wt Last Vital Signs Temp 97.4 F L 06/13/24 02:12 Pulse 44 L 06/13/24 08:14 Resp 14 06/13/24 08:14 BP 134/72 06/13/24 08:14 Pulse Ox 95 06/13/24 08:14 O2 Del Method Room Air 06/13/24 08:14 06/12/24 06/13/24 06/13/24 22:59 06:59 14:59 Intake Total 1000 / 1000 Balance 1000 / 1000 Weight last 48 hrs Weight 72.575 kg Physical Exam 2 Const: COMMON NORMALS: patient oriented x3 and alert GENERAL APPEARANCE: c ooperative ORIENTATION/CONSCIOUSNESS: Yes awake HENMT: COMMON NORMALS: oropharynx normal Neck/C-Spine: COMMON NORMALS: no JVD Resp: COMMON NORMALS: normal respiratory effort and clear to auscultation bilaterally AUSCULTATION: clear to auscultation bilaterally Cardio: COMMON NORMALS: no JVD, regular rhythm, S1 normal heart sound present, S2 normal heart sound present and No murmurs present (Cardio) RHYTHM: regular rhythm HEART SOUNDS: S1 normal heart sound present and S2 normal heart sound present GI: COMMON NORMALS: Normal to inspection, nondistended, normoactive bowel sounds present, Soft to palpation and non-tender PALPATION: Yes Soft to palpation Extremity: COMMON NORMALS: no joint enlargement and no pedal edema Neuro: COMMON NORMALS: patient oriented x3 and moves all extremities S ENSORIUM/ORIENTATION: Yes alert Skin: COMMON NORMALS: no rashes or lesions noted GENERAL SKIN EXAM: no rashes or lesions noted Data 06/13/24 02:29 06/13/24 02:29 A&P Assessment and plan (1) Methamphetamine abuse: (2) Schizophrenia: (3) H/O hernia repair: (4) Lung cancer: (5) COPD (chronic obstructive pulmonary disease): Qualifiers: COPD type: COPD with acute exacerbation Qualified Code(s): J44.1 - Chronic obstructive pulmonary disease with (acute) exacerbation (6) Obstructive sleep apnea: (7) Atypical chest pain: (8) Syncope: Plan Chest pain on arrival: Reviewed troponin EKG series, troponin unremarkable without positive delta. NT proBNP unremarkable. Reviewed EKG. He reports he was tachycardic at home 90s-100s, and reports EMS was concerned about possible atrial fibrillation with irregular pulse. Here we are seeing sinus bradycardia, 40s-50s. He states at home would have skipped beats, sometimes will feel like pauses. Noted became hypotensive here after nitroglycerin after initial presentation of chest pain. Appears this was accompanied by hypotension episode. Currently maintaining blood pressure 130/72. Reviewed prior echocardiogram, requested limited echo. Discussed with case with staff field engineer, as per discussion with him also will benefit from nuclear monitoring technician for 1 month. Follow-up with cardiology. At current time continue to monitor off metoprolol. He states has not increased metoprolol dosing. Discussed with him to avoid amphetamine use due to severe risk of cardiac complications. Risk of cardiomyopathy. Reassess LV function. Reviewed prior stress test, noted and discussed with him prior inferior wall akinesis and hypokinesis, possible prior inferior WI. No active ischemia. Current troponin EKG studies, and not suggestive act ischemia. He is also free of chest pain, pressure, or other symptoms at this time. Reviewed orthostatics. Maintaining blood pressure. Monitor on telemetry with concern for possible tachycardia-bradycardia syndrome, possible atrial fibrillation, pauses, severe bradycardia, other abnormality. Check TSH. Check magnesium. Requesting outpatient nuclear monitoring technician as per discussion with Dr. Shane. Resume rosuvastatin. Syncope in ER: Became hypotensive after nitroglycerin. Takes Imdur at home. Bradycardic. Additional assessment of bradycardia as above. Limited TTE. Reviewed D-dimer, not suggestive of PE. No symptoms to suggest VTE. Resume tamsulosin, citalopram, buspirone. Monitor for risk of further arrhythmia, syncope. Patient was recently admitted to the hospital for chest pain evaluation stress test was negative for any active ischemia with noted inferior wall motion abnormality as discussed with him. Discussed to avoid amphetamine at all costs. Echo unremarkable with preserve ejection fraction LVH Reviewed B12. At the time of evaluation patient hemodynamically stable no response to atropine at all in the ER EKG showing sinus bradycardia with PVCs Amphetamine use disorder: Discussed with him cessation, discussed risk including cardiovascular, risk of comorbidity, disability and . He verbalized understanding and agreement. Full code Cardiac diet DVT prophylaxis Lovenox Attestations 2 Medical Necessity Statement*: Continue hospitalization for assessment management after chest pain, syncope, with reported tachycardia, currently sinus bradycardia 40s-50s, inferior wall motion abnormality on prior echo in a gentleman with history of amphetamine use. and High MDM includes amount and/or complexity of data reviewed/ordered [ resulted lab(s)/test(s), ordered lab(s)/test(s) and other healthcare professional discussion] as documented Diagnoses Methamphetamine abuse F15.10 Schizophrenia F20.9 H/O hernia repair Z98.890; Z87.19 Lung cancer C34.90 Chronic obstructive pulmonary disease with acute exacerbation J44.1 COPD type: COPD with acute exacerbation Obstructive sleep apnea G47.33 Atypical chest pain R07.89 Syncope R55
[2024-06-13 09:18] LABS: Troponin 5 6HR 8.27 ng/L (0-15)
[2024-06-13 09:20] LABS: Troponin 5 6HR Delta -0.73 ng/L (0-12)
--- NOTE | 2024-06-13 09:24 | ECG_ITS ---
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
[2024-06-13 10:05] LABS: Magnesium 2.3 mg/dL (1.7-2.3); Thyroid Stimulating Hormone 9.12 uIU/mL (0.27-4.20)
[2024-06-13] MEDS: atorvastatin 40 mg Tablet 80 MG PO (10:11)
[2024-06-13] MEDS: tamsulosin 0.4 mg Capsule PO (10:11)
[2024-06-13 12:52] LABS: Amphetamines Screen Urine Positive (Negative); Barbiturates Screen Urine Negative (Negative); Benzodiazepines Screen Urine Negative (Negative); Cocaine Screen Urine Negative (Negative); Opiate Screen Urine Positive (Negative); PCP Screen Urine Negative (Negative); THC Screen Urine Negative (Negative)
--- NOTE | 2024-06-13 17:57 | PC.NURSE ---
During admission assessment patient was asked if he smoked and patient responded yes. Was offered a nicotene patch or lozenge, but patient declined. Patient asked if he could leave the floor or if this was a locked unit. This nurse explained that while it was not a locked unit that it was against the policy for admitted patient's to leave the floor due to safety concerns. Also patient had a syncopal episode in the ER waiting room and it was not safe for him to walk around. Patient became upset and asked for an ama form. When educated patient that the doctor wanted to monitor his heart rate and rhythm over night to determine if the patient was having pauses of his bradycardia was severe. Also let the patient know we were going to be discharging him tomorrow with a holter monitor from heart care. Patient stated, I didn't know it was going to be like custodial and I can't leave the floor. Dr Willams was called and informed of patient's decision. AMA form signed.
--- NOTE | 2024-06-14 07:06 | P.DS_ITS ---
Discharge Providers Date of Admission: 06/13/24 04:25 Date of Discharge: June 14, 2024 Attending Provider at Admission: Zach Calderón MD Attending Provider at Discharge: Johann Wakefield Primary Care Provider: Yolette Laguna APN Diagnoses at Discharge Discharge Diagnosis (1) Methamphetamine abuse: Status: Acute (2) Schizophrenia: Status: Acute (3) H/O hernia repair: Status: Acute (4) Lung cancer: Status: Acute (5) COPD (chronic obstructive pulmonary disease): Status: Acute Qualifiers: COPD type: COPD with acute exacerbation Qualified Code(s): J44.1 - Chronic obstructive pulmonary disease with (acute) exacerbation (6) Obstructive sleep apnea: Status: Acute (7) Atypical chest pain: Status: Acute (8) Syncope: Status: Acute Reason for Visit Reason for Visit: Chest Pain Brief History: Mario Schmitt is a 69 year old male without significant past medical history,, nicotine abuse, COPD, presented to the hospital with chief complaint of chest pain, generalized weakness and fatigue. Patient is not endorsing any previous history of MT or stents in the heart. Patient was evaluated in the ER initially for chest pain troponins were unremarkable he was discharged however in the waiting room patient had a syncopal event, he was bradycardic with low blood pressure, he was given atropine, IV fluids at the time of evaluation patient is not endorsing chest pain but stating that he felt burning sensation he is pointing towards his left chest area, patient smokes 1 to 2 packs/day, no associated shortness of breath, fever nausea or vomiting. Review of records revealed patient has preserved ejection fraction, his stress test was done few months ago which was unremarkable He does have hypertension with LVH Patient takes metoprolol succinate which will be held secondary to bradycardia Hospitalist was consulted to admit the patient after syncopal event in the waiting room Patient is hemodynamically stable GCS 15 NIH 0 at the time of evaluation Hospital Course Hospital Course As per discussion with him he was further hospitalized with discontinuation of metoprolol, further monitoring of his heart rates as he had reported some palpitations at home, sometimes feeling like his heart would pause then resume, as well as reported that while being brought by EMS there was concern for tachycardia 90s-100 with possible irregular pulse. We have not noted atrial fibrillation in the hospital. So far has had sinus bradycardia but remained in the high 40s, low 50s, with some gradual improvement down to 60s. Orthostatic blood pressures were checked and negative for severe to stasis. He did not have any recurrence of chest pain or hypotension. Troponin EKG series were completed, without any significant rise to suggest acute ischemia. With history of amphetamine use, counseled extensively on risks and dangers of amphetamine including cardiomyopathy, arrhythmias, MT and other cardiovascular complications among them, as well as per discussion with licensed social worker rehabilitation choices were requested for him. Limited echocardiogram was requested to follow- up cardiac function which showed normal ejection fraction, no regional wall motion normality. Thickened mitral valve, thickened aortic valve, no pericardial effusion, no intracardiac masses. He had had stress test and full echocardiogram at the end of March. Further monitoring was underway to assess for any episodes of arrhythmia and per discussion with cardiology request was made to set up a job placement specialist for a 1 month. This was requested. However, last night he expressed that he was leaving the hospital due to inability to smoke, as well as expressed that he was not ready to stop amphetamines. He was offered nicotine replacement with patches, lozenges, however, declined still leaving AGAINST MEDICAL ADVICE. Referral was made for follow-up with his primary provider with instructions not to continue metoprolol, as well as for job placement specialist. Discharge Data Studies Completed and Pending Completed Studies During Hospitalization Category Date Time Status CT head wo con* [id number] Stat Cat Scan 06/13/24 02:31 Completed XR chest 1V portable [id number] Stat Exams 06/13/24 02:31 Completed CV. echo limited [id number] Routine Ultrasound 06/13/24 07:59 Completed Radiology Impressions Chest X-Ray 06/13/24 02:31 IMPRESSION: No acute findings. Suspected skin fold overlying the lateral aspect of the right upper thorax mimicking a pneumothorax. Repeat chest x-ray with expiration recommended. Head CT 06/13/24 02:31 IMPRESSION: No acute intracranial abnormality. Laboratory Results WBC 7.82 10^3/uL (3.29-11.43) 06/13/24 02:29 RBC 4.47 10^6/uL (3.85-5.65) 06/13/24 02:29 Hgb 13.40 g/dL (11.27-16.99) 06/13/24 02:29 Hct 42.2 % (37-53) 06/13/24 02:29 MCV 94.4 fl (82-101) 06/13/24 02: MCH 30.0 pg (27-33) 06/13/24 02: MCHC 31.8 g/dL (30-55) 06/13/24 02: RDW 13.4 % (12.1-15.1) 06/13/24 02: Plt Count 261 10^3/cmm (157-399) 06/13/24 02: MPV 10.0 fL (7.4-10.4) 06/13/24 02: Neut % (Auto) 43.1 % 06/13/24 02: Lymph % (Auto) 43.2 % 06/13/24 02: Woodward % (Auto) 11.1 % 06/13/24 02: Eos % (Auto) 2.0 % 06/13/24 02: Baso % (Auto) 0.5 % 06/13/24 02: Neut # (Auto) 3.36 10^3/uL (1.8-7.7) 06/13/24 02: Lymph # (Auto) 3.4 10^3/uL (0.8-4.8) 06/13/24 02: Woodward # (Auto) 0.9 10^3/uL (0.2-0.9) 06/13/24 02: Eos # (Auto) 0.2 10^3/uL (0.0-0.8) 06/13/24 02: Baso # (Auto) 0.0 10^3/uL (0.0-0.1) 06/13/24 02: Nucleated RBC % (auto) 0 % 06/13/24 02: Nucleated RBCs # 0.0 /100WBC 06/13/24 02: PT 12.90 SECONDS (12.1-14.9) 06/13/24 02: INR 0.91 (0.8-1.2) 06/13/24 02: APTT 25.8 SECONDS (23.9-36.7) 06/13/24 02: D-Dimer 0.39 ug/mLFEU (0-0.59) 06/13/24 02: Sodium 140 mmol/L (136-145) 06/13/24 02:29 Potassium 4.9 mmol/L (3.5-5.1) 06/13/24 02:29 Chloride 104 mmol/L (98-107) 06/13/24 02:29 Carbon Dioxide 27 mmol/L (22-29) 06/13/24 02:29 Anion Gap 13.9 (5-19) 06/13/24 02:29 BUN 22 mg/dL (8-23) 06/13/24 02:29 Creatinine 0.9 mg/dL (0.7-1.2) 06/13/24 02:29 GFR Calculation 84.2 mL/min (90-130) L 06/13/24 02:29 Glucose 135 mg/dL (65-115) H 06/13/24 02:29 POC Glucose 115 mg/dL (70-110) H 06/13/24 02:36 Calculated Osmolality 295 mOsm/kg (285-295) 06/13/24 02:29 Calcium 8.9 mg/dL (8.5-10.5) 06/13/24 02:29 Magnesium 2.3 mg/dL (1.7-2.3) 06/13/24 02:29 Total Bilirubin 0.3 mg/dL (0.15-1.2) 06/13/24 02:29 AST 16 U/L (0-40) 06/13/24 02:29 ALT 14 U/L (0-41) 06/13/24 02:29 Alkaline Phosphatase 78 U/L (40-130) 06/13/24 02:29 Troponin T Baseline 9 ng/L (0-15) 06/13/24 02:29 Troponin T 120 Minute 9.26 ng/L (0-15) 06/13/24 04:33 Delta Troponin T 0.26 ABS# (0-10) 06/13/24 04:33 Troponin T Hi Sens 6Hr 8.27 ng/L (0-15) 06/13/24 08:53 Troponin T Hi Sens 6Hr Delta -0.73 ng/L (0-12) L 06/13/24 08:53 NT-Pro-B Natriuret Pep 121 pg/mL (0-125) 06/13/24 02:29 Total Protein 5.6 g/dL (6.6-8.7) L 06/13/24 02:29 Albumin 3.8 g/dL (3.5-5.2) 06/13/24 02:29 Globulin 1.8 g/dL (1.3-4.6) 06/13/24 02:29 Vitamin B12 278 pg/mL (232-1245) 06/13/24 04:33 TSH 9.12 uIU/mL (0.27-4.20) H 06/13/24 02:29 Urine Opiates Screen Positive ng/mL (Negative) H 06/13/24 12:34 Ur Barbiturates Screen Negative ng/mL (Negative) 06/13/24 12:34 Ur Phencyclidine Scrn Negative ng/mL (Negative) 06/13/24 12:34 Ur Amphetamines Screen Positive ng/mL (Negative) H 06/13/24 12:34 U Benzodiazepines Scrn Negative ng/mL (Negative) 06/13/24 12:34 Urine Cocaine Screen Negative ng/mL (Negative) 06/13/24 12:34 U Marijuana (THC) Screen Negative ng/mL (Negative) 06/13/24 12:34 Vitals Last Vital Signs Temp 97.4 F L 06/13/24 02:12 Pulse 64 06/13/24 16:29 Resp 15 06/13/24 16:00 BP 131/82 06/13/24 16:29 Pulse Ox 97 06/13/24 16:29 O2 Del Method Room Air 06/13/24 16:00 Discharge Plan Discharge Patient Disposition: Left Against Medical Advice Condition: Stable Prescriptions: No Action cyclobenzaprine 10 mg tablet 10 mg PO TID PRN (Reason: muscle spasm) Qty: 30 0RF albuterol sulfate 90 mcg/actuation Hfa Aerosol Inhaler 2 puff INHALATION 6XD PRN (Reason: Shortness Of Breath Or Wheezing) aspirin 81 mg tablet,delayed release (DR/EC) 81 mg PO DAILY Qty: 30 0RF metoprolol succinate 50 mg tablet extended release 24 hr 50 mg PO DAILY sildenafil 100 mg tablet 100 mg PO DAILY PRN (Reason: Erectile Dysfunction) levothyroxine 75 mcg tablet 75 mcg PO QAM tamsulosin 0.4 mg capsule 0.4 mg PO DAILY diclofenac sodium 75 mg tablet,delayed release (DR/EC) 75 mg PO BID PRN (Reason: INFLAMATORY PAIN) citalopram 20 mg tablet 20 mg PO DAILY buspirone 10 mg tablet 5 - 10 mg PO BID gabapentin 300 mg capsule 300 mg PO BID rosuvastatin 20 mg tablet 20 mg PO DAILY tiotropium bromide [Spiriva with HandiHaler] 18 mcg capsule, w/inhalation device See Rx Instructions .ROUTE .COMPLEX Rx Instructions: INHALE THE CONTENTS OF ONE CAPSULE BY MOUTH ONCE DAILY. Other Ambulatory Orders: MCT/Event Monitor 30 Days (Routine) Timeframe: 1 Day Facility: [facility] - Location: Radiology Ordered By: Johann Wakefield Referrals: Laguna,Yolette, PRODUCTION BORING MACHINE OPERATOR [Primary Care Provider] - 4-7 days Patient Instructions: Opioid Safety Discharge Attestations Time Spent in Discharge Care*: greater than 30 min Status at Discharge: Cognitive status at discharge: cognitively intact , Behavioral status at discharge: can be uncooperative , Quality Metrics Clinical Quality Measures [ No reported AMI, CVA or VTE this stay] Coding Level of Care Code 39611 Total time (in minutes) for Discharge: 40 Diagnoses Methamphetamine abuse F15.10 Schizophrenia F20.9 H/O hernia repair Z98.890; Z87.19 Lung cancer C34.90 Chronic obstructive pulmonary disease with acute exacerbation J44.1 COPD type: COPD with acute exacerbation Obstructive sleep apnea G47.33 Atypical chest pain R07.89 Syncope R55
== END 2024-06-13 18:05 | disposition left against medical advice (07) ==
LOC: ER 04:09 → ER IP 04:26 → MEDSURG 15:58
PROVIDERS: Admitting Provider Internal Medicine; Emergency Provider Emergency Medicine; PCP Nurse Practitioner Family; Visit Provider Internal Medicine
DX: R07.89 Other chest pain (principal); R55 Syncope and collapse; F15.10 Other stimulant abuse, uncomplicated; F20.9 Schizophrenia, unspecified; Z98.890 Other specified postprocedural states; Z87.19 Personal history of other diseases of the digestive system; C34.90 Malignant neoplasm of unspecified part of unspecified bronchus or lung; J44.1 Chronic obstructive pulmonary disease with (acute) exacerbation; G47.33 Obstructive sleep apnea (adult) (pediatric); F17.210 Nicotine dependence, cigarettes, uncomplicated; Z53.29 Procedure and treatment not carried out because of patient's decision for other reasons; Z85.118 Personal history of other malignant neoplasm of bronchus and lung
CPT/HCPCS: 36415; 36416; 70450; 71045; 80053; 80306; 82607; 82962; 83735; 83880; 84443; 84484; 85025; 85378; 85610; 85730; 93005; 93308; 96372; 99285; G0378; J0461; J1650; J2310; J2470; J7030

== ENCOUNTER 2025-05-26 03:10 | Emergency (ER) | payer MEDICARE, MEDICAID, SELFPAY ==
--- OUTSIDE RECORDS SUMMARY | 2024-10-27 09:40 | XMS_ITS ---
Author Organization [facility] Address [address] [place] [address] Care Team Providers Care Voice Data Communications Engineer Name Role Phone Delbert Laguna Primary Care Provider LAGUNA, DELBERT Unavailable Unavailable REASON FOR VISIT ER F/U LEG SWOLLEN FROM KNEE DOWN Encounters Encounter Location Date Provider Diagnosis [facility] Office [address] [place] [id number] 10/27/2024 Delbert Laguna Plan Of Treatment No Information Progress Notes * ALONDRA PALMA TDOB: [birth year] (70 yo M)Acc No.[id number]:10/27/2024 Progress Notes Patient: ALONDRA ROMAN Provider: Pearl Laguna ELECTORAL OFFICER :1955 A ge:69 Y S ex:Male Date:10/27/2024 Address:[address] [place] [address] [id number] Subjective: * Chief Complaints: * E R F/U LEG SWOLLEN FROM KNEE DOWN Billing Information: * Procedure Codes: Care Plan Details* * Electronic signature of Quinten Laguna APN on 05/26/2025 at 03:15 AM HOURLY MANAGER Sign off status: Pending * Provider: Pearl Laguna ELECTORAL OFFICER Date: 0 10/27/2024 Generated for Vianey segundo/Rosi/eTransmitting on: 1 07/27/2024 03:15 AM HOURLY MANAGER
--- OUTSIDE RECORDS SUMMARY | 2025-05-26 03:15 | XMS_ITS | Clinical Summary ---
Author Organization [facility] Address [address] Cain: Epic Prelude ADT ZBIGNIEW MACIAS [id number] Care Team Providers Care Executive Marketing Assistant Name Role Phone Unavailable Primary Care Provider Unavailabl e Allergies Active Allergy Reactions Criticality Noted Date Comments Sulfa (Sulfonamide Antibiotics) Other (See Comments) 07/09/2018 Oral burning and penis swelling/irritation Medications tiotropium (SPIRIVA) 18 mcg capsule Take 18 mcg by inhalation daily. 9 Active albuterol sulfate 90 mcg/Actuation inhaler Take 2 Puffs by inhalation. 9 Active Active Problems Problem Noted Date Diagnosed Date Dizzy 07/09/2018 Asymmetric SNHL (sensorineural hearing loss) 12/2018 Laceration of hand, complicated 02/09/2012 Immunizations Immunization Administration Dates Next Due (ADACEL/BOOSTRIX)(10 YR UP) TDAP VACCINE, 0.5ML, IM 01/28/2012 Family History Medical History Relation Name Comments Thyroid Disease Sister Relation Name Status Comments Brother Alive Father Mother Sister Alive Social History Tobacco Use Types Packs/Day Years Used Date Smoking Tobacco: Every Day Cigarettes Smokeless Tobacco: Never Alcohol Use Standard Drinks/Week Comments No 0 (1 standard drink = 0.6 oz pur e alcohol) Sex and Gender Information Value Date Recorded Sex Assigned at Not on file Legal Sex 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 Gender Identity Not on file Sexual Orientation Not on file Last Filed Vital Signs Vital Sign Reading Time Taken Comments Blood Pressure 141/70 10/17/2019 8:40 PM CDT Pulse 94 10/17/2019 8:40 PM CDT Temperature 36.8 C (98.2 F) 10/17/2019 8:08 PM CDT Respiratory Rate 19 10/17/2019 8:08 PM CDT Oxygen Saturation - - Inhaled Oxygen Concentration - - Weight 79.4 kg (175 lb) 10/17/2019 8:08 PM CDT Height 188 cm (6' 2 ) 10/17/2019 8:08 PM CDT Body Mass Index 22.47 10/17/2019 8:08 PM CDT Plan of Treatment Health Maintenance Due Date Last Done Comments COLORECTAL SCREENING 2002 Colorectal Cancer Screening 2002 FIT-DNA Q 3 years 2002 FIT/FOBT Q 1 year 2002 Flex Sig/CT Colonography Q 5 years 2002 PNEUMOCOCCAL VACCINE 50+ YEARS (1 of 1 - PCV) 02/06/20 07 ZOSTER VACCINE (1 of 2) 2007 DTAP/TDAP/TD VACCINES (2 - Td or Tdap) 01/27/2022 INFLUENZA VACCINE (#1) 2024 RSV VACCINE (60+ or ) (1 - 1-dose 75+ series) 02/06/2032
--- OUTSIDE RECORDS SUMMARY | 2025-05-26 03:16 | XMS_ITS | Encounter Summary ---
Author Organization [facility] Address [address] [place] [address] Care Team Providers Care Ribbing Machine Operator Name Role Phone Vidal Kam MD Primary Care Provider [phone] Encounter Details Date Type Department Care Team (Late st Contact Info) Description 08/23/2012 Ancillary Orders [facility] Laboratory Services [place] [address] [place] [address] Sick Social History Tobacco Use Types Packs/Day Years Used Date Smoking Tobacco: Every Day Cigarettes Alcohol Use Standard Drinks/Week Comments No 0 (1 standard drink = 0.6 oz pur e alcohol) Sex and Gender Information Value Date Recorded Sex Assigned at Not on file 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 Gender Identity Not on file Sexual Orientation Not on file documented as of this encounter Plan of Treatment Not on file documented as of this encounter Procedures Procedure Name Priority Date/Time Associated Diagnosis Comments ACUTE HEPATITIS PANEL Routine 08/23/2012 9:30 PM CDT Sick [ICD-9-CM] documented in this encounter Results * ACUTE HEPATITIS PANEL (08/23/2012 9:30 PM CDT) HEPATITIS B SURFACE AG Non-Reac tive Non-Reac tive 08/25/2012 7:16 AM CDT [facility] [employer] [facility] HEPATITIS B CORE IGM Non-Reac tive Non-Reac tive 08/25/2012 7:16 AM CDT [facility] HEPATITIS A IGM Non-Reac tive Non-Reac tive 08/25/2012 7:16 AM CDT [facility] HEPATITIS C AB Non-Reac tive Non-Reac tive 08/25/2012 7:16 AM CDT [facility] Comment: HCV antibody testing is performed by enhanced chemiluminescence immunoassay methodology. The CDC recommends that positive HCV antibody tests be confirmed with PCR testing. PCR testing requires a new specimen and order for test: [id number] Hepatitis C RNA PCR Qualitative. Blood specimen (specimen) 08/23/2012 9:30 PM CDT 08/23/2012 10:57 PM CDT us Josefa Briseno MD CHEMISTRY ORDERABLES Final Result [facility] CLIA# [id number] [address] [place] [address] documented in this encounter Visit Diagnoses Diagnosis Sick Other unknown and unspecified cause of morbidity or mortality documented in this encounter Care Teams Ribbing Machine Operator Relationship Specialty Start Date End Date Vidal Kam MD [facility] [address] [facility] [place] [address] PCP - General Family Practice 08/26/11 04/15/18 documented as of this encounter
--- OUTSIDE RECORDS SUMMARY | 2025-05-26 03:16 | XMS_ITS | Encounter Summary ---
Author Organization [facility] Address [address] [place] [address] Care Team Providers Care Ccu Nurse Name Role Phone Vidal Kam MD Primary Care Provider [phone] Reason for Referral * Outpatient Services (Routine) - Closed Specialty Diagnoses / Procedures Referred By Maria A kang Referred To Contact Radiology Diagnoses Abnormal chest x-ray Procedures CT CHEST W CONTRAST Rohith Andre DO NO ADDRESS ON FILE [facility] CT Scan [place] [address] [place] [address] Phone: tel: fax: Referral ID Status Reason Start Date Expiration Date Visits Re quested Visits Authorized [id number] Closed 05/05/2012 05/05/2013 1 1 SAWYER Encounter Details Date Type Department Care Team (Latest Contact Info) Description 05/05/2012 Ancillary Orders [facility] Scheduling [address] [place] [address] Rohith Andre DO NO ADDRESS ON FILE Abnormal chest x-ray Social History Tobacco Use Types Packs/Day Years Used Date Smoking Tobacco: Every Day Cigarettes Alcohol Use Standard Drinks/Week Comments No 0 (1 standard drink = 0.6 oz pur e alcohol) Sex and Gender Information Value Date Recorded Sex Assigned at Not on file Legal Sex Male 1:20 PM LAST SAWYER Gender Identity Not on file Sexual Orientation Not on file documented as of this encounter Plan of Treatment Not on file documented as of this encounter Results * CT CHEST W CONTRAST (05/05/2012 11:30 AM LAST SAWYER) Anatomical Region Laterality Modality Chest Computed Tomogra phy 05/05/2012 11:2 9 AM LAST SAWYER Narrative 05/05/2012 12:27 PM LAST SAWYER PROCEDURE CHEST CT, IV contrast enhanced 05 May 2012 TECHNIQUE After injection of 100 mL Optiray-320 nonionic contrast material intravenously, helical axial CT was obtained from the base of the neck into the abdomen and imaged at 5 mm increments for 72 axial images. Sagittal and coronal reconstructions are also obtained. Comparison is made to the previous study of 26 August 2011. DESCRIPTION On lung window imaging there is some new minimal infiltrate anteriorly in the lingula. Apical pleural thickening appears stable. No pleural effusion or other significant interval change is seen. Mediastinal windows settings shows no mediastinal mass or adenopathy. No new hilar adenopathy is seen. The chest wall appears intact without axillary adenopathy. The previously described nodes, some of which are at the upper limits of normal in size, appear unchanged. The partially visualized liver, gallbladder, and pancreas appear unremarkable. The adrenal glands and visualized portions of the upper poles the kidneys appear unremarkable. The stomach is nondistended. There is moderate fecal artifact in the colon. IMPRESSION 1. no acute changes of the chest seen 2. no new pulmonary or mediastinal masses or adenopathy seen 3. minimal new lingular infiltrate anteriorly Procedure Note Amandeep Reed MD - 05/05/[address], IV contrast enhanced 05 May 2012 TECHNIQUE After injection of 100 mL Optiray-320 nonionic contrast material intravenously, helical axial CT was obtained from the base of the neck into the abdomen and imaged at 5 mm increments for 72 axial images. Sagittal and coronal reconstructions are also obtained. Comparison is made to the previous study of 26 August 2011. DESCRIPTION On lung window imaging there is some new minimal infiltrate anteriorly in the lingula. Apical pleural thickening appears stable. No pleural effusion or other significant interval change is seen. Mediastinal windows settings shows no mediastinal mass or adenopathy. No new hilar adenopathy is seen. The chest wall appears intact without axillary adenopathy. The previously described nodes, some of which are at the upper limits of normal in size, appear unchanged. The partially visualized liver, gallbladder, and pancreas appear unremarkable. The adrenal glands and visualized portions of the upper poles the kidneys appear unremarkable. The stomach is nondistended. There is moderate fecal artifact in the colon. IMPRESSION 1. no acute changes of the chest seen 2. no new pulmonary or mediastinal masses or adenopathy seen 3. minimal new lingular infiltrate anteriorly us Rohith Andre DO CT ORDERABLES Final Result documented in this encounter Visit Diagnoses Diagnosis Abnormal chest x-ray Other nonspecific abnormal finding of lung field Abnormal chest x-ray Other nonspecific abnormal finding of lung field documented in this encounter Care Teams Ccu Nurse Relationship Specialty Start Date End Date Vidal Kam MD [facility] [address] [place] [address] PCP - General Family Practice 08/26/11 04/15/18 documented as of this encounter
--- OUTSIDE RECORDS SUMMARY | 2025-05-26 03:16 | XMS_ITS | Encounter Summary ---
Author Organization [facility] Address [address] [place] [address] Care Team Providers Care Home Assessment Nurse Name Role Phone Vidal Kam MD Primary Care Provider [phone] Encounter Details Date Type Department Care Team (Late st Contact Info) Description 10/16/2014 Ancillary Orders [facility] Emergency Medicine [address] [place] [address] Rohith Andre, NO ADDRESS ON FILE Chest congestion (Primary Dx); Cough Social History Tobacco Use Types Packs/Day Years Used Date Smoking Tobacco: Every Day Cigarettes Alcohol Use Standard Drinks/Week Comments No 0 (1 standard drink = 0.6 oz pur e alcohol) Sex and Gender Information Value Date Recorded Sex Assigned at Not on file 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 Some minimal osteophyte of the spine is noted. On the lateral view, no infiltrate or spine sign is seen. Costophrenic angles are normal posteriorly. IMPRESSION essentially normal chest views Procedure Note [place] Amandeep A, MD - 10/17/2014 PROCEDURE XR CHEST, 2 views, 16 Oct 2014 COMPARISON Current: PA and lateral chest Prior: no previous studies presented for comparison DESCRIPTION Frontal view of the chest shows no infiltrate or atelectasis and the cardiomediastinal silhouette appears normal. Some minimal osteophyte of the spine is noted. On the lateral view, no infiltrate or spine sign is seen. Costophrenic angles are normal posteriorly. IMPRESSION essentially normal chest views us Rohith Andre DO DIAGNOSTIC IMAGING ORDERABLES F inal Result documented in this encounter Visit Diagnoses Diagnosis Chest congestion- Primary Other symptoms involving respiratory system and chest Cough Chest congestion Other symptoms involving respiratory system and chest Cough documented in this encounter Care Teams Home Assessment Nurse Relationship Specialty Start Date End Date Vidal Kam MD [facility] [address] [place] [address] PCP - General Family Practice 08/26/11 04/15/18 documented as of this encounter
--- OUTSIDE RECORDS SUMMARY | 2025-05-26 03:16 | XMS_ITS | Encounter Summary ---
Author Organization [facility] Address [address] [place] [address] Care Team Providers Care Seismograph Operator Helper Name Role Phone Vidal Kam MD Primary Care Provider [phone] Encounter Details Date Type Department Care Team (Late st Contact Info) Description 04/19/2013 Ancillary Orders [facility] Centralized Scheduling [address] [facility] [address] [place] [address] Mtnv, External Provider [address] [facility] [address] [place] [address] Social History Tobacco Use Types Packs/Day Years Used Date Smoking Tobacco: Every Day Cigarettes Alcohol Use Standard Drinks/Week Comments No 0 (1 standard drink = 0.6 oz pur e alcohol) Sex and Gender Information Value Date Recorded Sex Assigned at Not on file 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 [address] [place] [address] PCP - General Family Practice 08/26/11 04/15/18 documented as of this encounter
--- OUTSIDE RECORDS SUMMARY | 2025-05-26 03:16 | XMS_ITS | Encounter Summary ---
Author Organization [facility] Address [address] [place] [address] Care Team Providers Care Accounts Collector Name Role Phone Vidal Kam MD Primary Care Provider [phone] Encounter Details Date Type Department Care Team (Late st Contact Info) Description 10/20/2011 Ancillary Orders [facility] Laboratory Services [place] [address] [place] [address] Sick Social History Tobacco Use Types Packs/Day Years Used Date Smoking Tobacco: Never Assessed Sex and Gender Information Value Date Recorded Sex Assigned at Not on file 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 Gender Identity Not on file Sexual Orientation Not on file documented as of this encounter Plan of Treatment Not on file documented as of this encounter Procedures Procedure Name Priority Date/Time Associated Diagnosis Comments TESTOSTERONE, TOTAL Routine 10/20/2011 8 :59 PM CDT SICK [ICD-9-CM] documented in this encounter Results * TESTOSTERONE (10/20/2011 8:59 PM CDT) TESTOSTERONE 561 250 - 1,100 ng/dL 10/24/2011 10:30 AM CDT [facility] [employer] [facility] Comment:For more information on this test, go to http://education.[employer]/faq/ TotalTestosteroneLCMSMS Test Performed by [facility] [employer] [facility], [address] [place] [address] Cameron Resendiz M.D., Ph.D., Director of Laboratories , CLIA [id number] Blood specimen (specimen) 10/20/2011 8:59 PM CDT 10/20/2011 9:35 PM CDT Steven VILLALPANDO CHEMISTRY ORDERABLES Final R esult [facility] CLIA# [id number] [facility] [place] [address] documented in this encounter Visit Diagnoses Diagnosis Sick Other unknown and unspecified cause of morbidity or mortality documented in this encounter Care Teams Accounts Collector Relationship Specialty Start Date End Date Vidal Kam MD [facility] [address] [place] [address] PCP - General Family Practice 08/26/11 04/15/18 documented as of this encounter
--- OUTSIDE RECORDS SUMMARY | 2025-05-26 03:16 | XMS_ITS | Clinical Summary ---
Author Organization [facility] Address [address] [address] [place] [address] Phone Care Team Providers Care Engagement Executive Name Role Phone Unavailable Primary Care Provider Unavailabl e Allergies Active Allergy Reactions Criticality Noted Date Comments Sulfa (Sulfonamide Antibiotics) Other (See Comments) 07/09/2018 Oral burning and penis swelling/irritation Medications albuterol HFA 90 mcg inhaler Take 2 Puffs by inhalation. Active tiotropium (SPIRIVA) 18 mcg capsule Take 18 mcg by inhalation daily. 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 Gender Identity Not on file Sexual Orientation Not on file Last Filed Vital Signs Vital Sign Reading Time Taken Comments Blood Pressure 141/70 10/17/2019 8:40 PM CDT Pulse 94 10/17/2019 8:40 PM CDT Temperature 36.8 C (98.2 F) 10/17/2019 8:08 PM CDT Respiratory Rate 19 10/17/2019 8:08 PM CDT Oxygen Saturation 96% 10/17/2019 8:40 PM CDT Inhaled Oxygen Concentration - - Weight 79.4 [...] ) (1 - 1-dose 75+ series) 02/06/2032 Advance Directives For more information, please contact: [phone] * Full Code (Latest Code Status on File) Date Activated Date Inactivated Comments 01/29/2012 1:38 AM 01/29/2012 1:10 PM * Full Code Date Activated Date Inactivated Comments 01/28/2012 11:01 PM 01/29/2012 1:38 AM
--- OUTSIDE RECORDS SUMMARY | 2025-05-26 03:16 | XMS_ITS | Encounter Summary ---
Author Organization [facility] Address [address] [place] [address] Care Team Providers Care Film Producer Name Role Phone Vidal Kam MD Primary Care Provider [phone] Encounter Details Date Type Department Care Team (Late st Contact Info) Description 04/26/[address] 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 Gender Identity Not on file Sexual Orientation Not on file documented as of this encounter Plan of Treatment Not on file documented as of this encounter Results * XR CHEST PA AND LATERAL (04/26/2013 4:50 PM SUPERVISOR KEYMODULE ASSEMBLY) Anatomical Region Laterality Modality Chest Computed Radiogr aphy 04/26/2013 4:49 PM SUPERVISOR KEYMODULE ASSEMBLY Narrative 04/26/2013 5:05 PM SUPERVISOR KEYMODULE ASSEMBLY PROCEDURE CHEST, 2 views 26 April 2013 COMPARISON Current: PA and lateral chest Prior: no previous studies available for comparison DESCRIPTION Frontal view of the chest shows no infiltrate or atelectasis and the cardiomediastinal silhouette appears normal. 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 On the lateral view, no infiltrate or spine sign is seen. Costophrenic angles are normal posteriorly. IMPRESSION essentially normal chest views Procedure Note Amandeep Reed MD - 04/26/2013 PROCEDURE CHEST, 2 views 26 April 2013 COMPARISON Current: PA and lateral chest Prior: no previous studies available for comparison DESCRIPTION Frontal view of the chest shows no infiltrate or atelectasis and the cardiomediastinal silhouette appears normal. 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 On the lateral view, no infiltrate or spine sign is seen. Costophrenic angles are normal posteriorly. IMPRESSION essentially normal chest views us Chrissy Edwards JOURNEYMAN MOLDER DIAGNOSTIC IMAGING ORDERABL ES Final Result documented in this encounter Visit Diagnoses Diagnosis Abnormal chest x-ray- Primary Other nonspecific abnormal finding of lung field Abnormal chest x-ray Other nonspecific abnormal finding of lung field documented in this encounter Care Teams Film Producer Relationship Specialty Start Date End Date Vidal Kam MD [facility] [address] [place] [address] PCP - General Family Practice 08/26/11 04/15/18 documented as of this encounter
--- OUTSIDE RECORDS SUMMARY | 2025-05-26 03:16 | XMS_ITS | Patient Health Record ---
Author Organization [facility] Address [address] [place] [address] Care Team Providers Care Swatch Maker Name Role Phone [facility] Primary Care Provider [place] Unavailable Unavailable Allergies Allergen (clinical drug ingredient) Drug/Non Drug Allergy documented on EMR Reaction Allergy Type Onset Date Status Substance with sulfonamide structure and antibacterial mechanism of action (substance) Sulfa Antibiotics Unknown Drug Allergy Active Results Component Value Reference Range Flag Notes Cologuard (Not yet reviewed by provider) Interpretation: Performing Lab: Notes/Report: PSA Medicare Screening--G010 3 Reviewed date:02/13/2025 01:06:15 PM Interpretation: Performing Lab: Notes/Report: Diagnosis Description: Encounter for screening for malignant neoplasm of prostate PSA 2.03 .00-4.00 NG/ML PSA concen trations, regardless of the value, should not be interpreted as definitive evidence for the presence or absence of prostate cancer. Thyroid Stimulating Hormone (TSH) 42549 Reviewed date:02/13/2025 01:06:15 PM Interpretation: Performing Lab: Notes/Report: Diagnosis Description: Hypothyroidism, unspecified TSH 2.596 .358-3.740 MlU/ML Lipid Panel Reflex DLDL 8006 8, 56295 Reviewed date:02/13/2025 01:06:15 PM Interpretation: Performing Lab: Notes/Report: Diagnosis Description: Essential (primary) hypertension Trig 67 NA Classification Guidelines:Triglycerides Adults: >20yrs Desirable <150 Borderline High 150-199 High 200-499 Very high >=500 Children: Male 0-4 yr 22-99 5-9 yr 30-101 10-14 yr 32-125 15-19 yr 37-148 Children: Female 0-4 yr 34-112 5-9 yr 32-105 10-14 yr 37-131 15-19 yr 39-132 Chol 158 <=200 MG/DL HDL 52 30-72 MG/DL Reference Ranges:HDL Male: 5-9y 38-75 10-14y 37-74 15-19y 30-63 >=20y 40-59 Female: 5-9y 36-73 10-14y 37-70 15-19y 35-74 >=20y 40-59 CH/HDL 3.1 0.0-4.9 RATIO LDL 93 0-130 MG/DL LDL result is inaccurate , if Trig is >400 mg/dl. See DLDL result. Comprehensive Metabolic Pane l ([facility]) [id number] Reviewed date:02/13/2025 01:06:15 PM Interpretation: Performing Lab: Notes/Report: Diagnosis Description: Essential (primary) hypertension Glucose Serum 91 71-110 MG/DL Testing p erformed at [facility], [address] [place] [address] [place] [address]. CLIA ID#: [id number] BUN 18 7-21 MG/DL Creat .72 .57-1.17 MG/DL X-vkscev-c-benzoquinone imine (NAPQI) is a metabolite of acetaminophen, NAPQI concentrations of apparoximately 10 mg/L correlation to toxic levels of acetaminophen demonstrates a greater than or equil to 10% change in results. NAPQI concentrations greater than this may lead to falsely depressed results for patient samples. Use of this assay is not recommended for patients undergoing treatment with phenindione, due to the potential for falsely depressed results. GFR 99.5 NA Calculation pe rformed from GFR calculator provided by the [employer]. Glomerular Filtration rate(GRF) is the best overall index of kidney function. Normal GFR varies according to age,sex, body size, and declines with age. The [employer] recommends using the CKD-EPI Creatinine Equation(2020) to estimate GFR. BUN/Creat Ratio 25.0 12.0-20.0 % HI Total Protein 6.5 5.8-8.0 G/DL Albumin 4.4 3.2-4.8 G/DL Globulin 2.2 2.3-3.5 G/DL LOW Alb/Glob 2.0 0.8-2.2 Calcium 9.3 8.7-10.4 MG/DL Sodium 141 136-145 MMOL/L Potassium 4.5 3.5-5.1 MMOL/L Chloride 105 98-107 MMOL/L CO2 26.8 20.0-31.0 MMOL/L Anion Gap 14 5-15 Alk Phos 73 46-116 Bili Total .3 .3-1.2 MG/DL Use of this assay is not recommended for patients undergoing treatment with eltrombopag due to the potential for falsely elevated results. AST/SGOT 14 15-37 UNIT/L LOW ALT/SGPT 16 12-78 UNIT/L Osmo Serum,Calculated 294 280-300 MOSM/KG CBC w\ Auto Diff [id number] Reviewed date:02/13/2025 01:06:14 PM Interpretation: Performing Lab: Notes/Report: Diagnosis Description: Essential (primary) hypertension WBC 5.4 4.5-11.0 X10'3 RBC 4.50 4.50-5.90 X10'6 Hgb 13.4 13.5-17.5 G/DL LOW Hct 43.3 41.0-53.0 % MCV 96.2 80.0-100.0 FL MCH 29.8 27.0-31.0 PG MCHC 30.9 31.0-37.0 G/DL LOW Platelet 241 150-400 X10'3 RDW-SD 50.3 35.0-49.0 FL HI RDW-CV 14.0 12.2-15.6 % MPV 11.3 9.2-12.0 FL Neutro Auto% 46.7 40.0-70.0 % Lymph Auto% 36.3 22.0-44.0 % [place]ham Auto% 12.7 3.0-7.0 % HI Eos Auto% 3.5 2.0-4.0 % Baso Auto% 0.6 0.0-1.0 % Imm Gran% .2 .0-.4 % Neutro Abs 2.53 .80-7.70 Absolute Neutrophil Count 2530 NA Lymph Abs 1.97 .10-4.10 [place]ham Abs .69 .20-1.00 Eos Abs .19 .00-.40 Baso Abs .03 .00-.20 Imm Gran Abs .01 .00-.10 NRBC# .00 .00-.20 NRBC% .00 .00-.20 /100 int act WBC's Reason For Referral Reason Patient needing eval for eye exam. Diagnosis 1 Decreased vision (H5 4.7) Referral Organization [facility] Referring Provider First Name Yolette Referring Provider Last Name Laguna Referring Provider Speciality Nurse Addison darby Referred Provider Audi Rudolph Referred Provider Specialty Ophthalmolog y General Notes Sarai Canela RN 02/23/2025 02:43:30 PM CDT > Patient has apt on 03/01/2025 Referral Priority Routine Referral Appointment Date 03/01/2025 Medications Medication SIG (Take, Route, Frequency, Duration) Notes Start Date End Date Status Sildenafil Citrate 100 MG Tablet TAKE 1 TABLET BY MOUTH ONCE DAILY NEEDED DIRECTED FOR 30 DAYS; Duration: 30 days Active Rosuvastatin Calcium 20 MG Tablet 1 tablet Oral Once a day; Duration: 90 days Active Metoprolol Succinate 50 MG Capsule ER 24 Hour Sprinkle 1 capsule Orally Once a day; Duration: 90 days 07/31/2023 Active Levothyroxine Sodium 75 MCG Tablet 1 tablet in the morning on an empty stomach Orally Once a day; Duration: 90 days 08/24/2023 Active busPIRone HCl 10 MG Tablet 1/2 - 1 table t Orally 3 times a day prn anxiety; Duration: 90 days Active Aspirin 81 81 MG Tablet Delayed Release 1 tablet Orally Once a day Active Cyclobenzaprine HCl 10 MG Tablet 1 tab Orally three times a day prn muscle spasms; Duration: 30 days Active Citalopram Hydrobromide 20 MG Tablet 1 tablet Orally Once a day; Duration: 90 days 06/07/2024 Active Imitrex 100 MG Tablet 1 tablet as needed , may take second dose at least 2 hours after first dose up to 2 tablets per day as needed Orally Once a day; Duration: 30 days 03/30/2025 Active Albuterol Sulfate HFA 108 (90 Base) MCG/ACT Aerosol Solution 2 puffs Inhalation four times a day prn; Duration: 30 days 04/04/2024 Active Tamsulosin HCl 0.4 MG Capsule 1 capsule Oral Once a day; Duration: 90 days Active Gabapentin 300 MG Capsule 1 capsule Oral ly 4 times a day; Duration: 90 days 04/04/2024 Active HYDROcodone-Acetaminophen 5-325 MG Tablet TAKE ONE TABLET BY MOUTH EVERY 4 HOURS NEEDED FOR PAIN FOR ONE WEEK Oral; Duration: 7 Days Not-Taking Immunizations Vaccine Route Administration Date Status Comme nts Flucelvax Trivalent, Syringe 0.5 mL, PF Unknown 024 Refused Social History Tobacco Use: Social History Observation Description Date Details (start date - stop date) Current Smoker NA - NA Social History Depression Screening Social Info Question Answer Notes depression screening findings Findings Positive (5+ without suicidality), Suicidality Present PHQ-9 Little interest or pleasure in doing things Not at all Feeling down, depressed, or hopeless More than h yuliet the days Trouble falling or staying a sleep, or sleeping too much Not at all Feeling tired or having little energy More than half the days Poor appetite or overeating Not at all Feeling bad about yourself, or that you are a failure, or have let yourself or your family down Not at all Trouble concentrating on thi ngs, such as reading the newspaper or watching television Not at all Moving or speaking so slowly that other people could have noticed. Or the opposite ? being so fidgety or restless that you have been moving around a lot more than usual Not at all Thoughts that you would be b jyoti off , or of hurting yourself in some way Several days (Consider Suicide Assessment Risk) Total Score 5 Interpretation Mild Depression Drugs/Alcohol: Social Info Question Answer Notes Alcohol Screen (Audit-C) Did you have a drink containing alcohol in the past year? Yes How often did you have a drink containing alcohol in the past year? Monthly or less (1 point) Points 1 Interpretation Negative Tobacco Use: Social Info Question Answer Notes Tobacco Control (Standard) Tobacco use: Current smoker How many cigarettes a day do you smoke? 31 or more How soon after you wake up do you smoke your first cigarette? Within 5 minutes Are you interested in quitting? Not ready to quit Section Notes: Depression screen completed 01/26/2023 score 8 Depression screen completed 01/26/2023 score 8 Depression screen completed 01/26/2023 score 8 Depression screen completed 01/26/2023 score 8 Depression screen completed 01/26/2023 score 8 Depression screen completed 04/04/2024 score 5 Depression screen completed 04/04/2024 score 5 Depression screen completed 04/04/2024 score 5 Depression screen completed 04/04/2024 score 5 Problems Problem Type SNOMED Code ICD Code Onset Dates Problem Status W/U Status Risk Notes Problem Hypothyroidism (04616773) Hypothyroidism, unspecified (E03.9) Active confirmed Problem Tobacco user (235732756) Nicotine dependence, cigarettes, uncomplicated (F17.210) Active confirmed Problem Anxiety (94363799) Anxiety (F41.9) Active confi rmed Problem Sleep apnea (13196808) Sleep apnea in adult (G47.30) Active confirmed Problem Depression (908094136) Depression (F32.9) Active confirmed Problem Hypothyroid (35737695) Hypothyroid (E03.9) Active confirmed Problem Erectile dysfunction (disorder) (790101220) ED (erectile dysfunction) (N52.9) Active confirmed Problem Methamphetamine abuse (159184852) Methamphetamine abuse (F15.10) Active confirmed Problem Benign prostatic hyperplasia (639491737) BPH (benign prostatic hyperplasia) (N40.0) Active confirmed Problem Osteoarthritis (729474216) Osteoarthritis (M19.90) Active confirmed Problem Hyperlipidemia (66180244) Hyperlipidemia (E78.5) Active confirmed Problem Tinnitus (97802059) Tinnitus (H93.19) Active confirmed Problem Tomography - chest abnormal (051004726) Abnormal CT of the chest (R93.89) Active confirmed Problem Mild recurrent major depression (53411853) Depression, major, recurrent, mild (F33.0) Active confirmed Problem Chronic obstructive pulmonary disease (93303103) Chronic obstructive pulmonary disease (COPD) (J44.9) Active confirmed Problem Decreased vision (068355924) Decreased vision (H54.7) Active confirmed Problem Primary hypertension (91766480) Primary hypertension (I10) Active confirmed Vital Signs Heart Rate 72 /min 02/10/2025 Temperature 97.3 degrees Fahrenheit 02/10/2025 Respiratory Rate 20 /min 02/10/2025 Height-cm 187.96 cm 02/10/2025 Oximetry 95 % 02/10/2025 Blood pressure diastolic 68 mm Hg 02/10/2025 Weight-kg 78.47 kg 02/10/2025 Height 74 in 02/10/2025 Blood pressure systolic 142 mm Hg 02/10/2025 Weight 173 lbs 02/10/2025 BMI 22.21 kg/m2 02/10/2025 Encounters Encounter Location Date Provider Diagnosis [facility] [place] [address] [facility] [address] [place] [address] 11/10/2024 [facility] Osteoarthritis M19.9 0 ; Primary hypertension I10 ; Hyperlipidemia E78.5 ; BPH (benign prostatic hyperplasia) N40.0 ; Depression F32.9 ; Hypothyroid E03.9 ; Neuropathic pain M79.2 ; Anxiety F41.9 ; Prostate cancer screening Z12.5 ; ED (erectile dysfunction) N52.9 ; Leg pain M79.606 ; Chronic obstructive pulmonary disease (COPD) J44.9 and Muscle spasm M62.838 [facility] [address] [facility] [address] [place] [address] 06/07/2024 [facility] Chronic obstructive pulmonary disease (COPD) J44.9 ; Hyperlipidemia E78.5 ; Primary hypertension I10 ; Sleep apnea in adult G47.30 ; Osteoarthritis M19.90 ; Hypothyroidism, unspecified E03.9 ; Tobacco abuse Z72.0 ; Abnormal CT of the chest R93.89 ; Depression F32.9 and Anxiety F41.9 [facility] [address] [place] [address] 02/10/2025 [facility] Primary hypertension I10 ; Decreased vision H54.7 ; Hypothyroid E03.9 ; Prostate cancer screening Z12.5 and Colon cancer screening Z12.11 [facility] [address] [facility] [address] [place] [address] 03/14/2025 [facility] [address] [facility] [address] [place] [address] 03/06/2025 [facility] [address] [facility] [address] [place] [address] 02/16/2025 [facility] [address] [facility] [address] [place] [address] 07/15/2024 [facility] [address] [facility] [address] [place] [address] 03/30/2025 [facility] Assessments Encounter Date Diagnosis (ICD Code) Assessment Notes Treatment Notes Treatment Clinical Notes Section Notes 06/07/2024 Chronic obstructive pulmonary disease (COPD) (ICD-10 - J44.9) 06/07/2024 Hyperlipidemia (ICD-10 - E78.5) rosuvastatin 11/10/2024 Osteoarthritis (ICD-10 - M19.90) diclofenac prednisone 11/10/2024 Primary hypertension (ICD-10 - I10) metoprolol cbc cmp lipids 02/10/2025 Decreased vision (ICD-10 - H54.7) rudolph eye 02/10/2025 Primary hypertension (ICD-10 - I10) cbc cmp lipids continue meds 02/10/2025 Hypothyroid (ICD-10 - E03.9) tsh conitnue meds 11/10/2024 Hyperlipidemia (ICD-10 - E78.5) lipids rosuvastatin 06/07/2024 Primary hypertension (ICD-10 - I10) metoprolol 06/07/2024 Sleep apnea in adult (ICD-10 - G47.30) 02/10/2025 Prostate cancer screening (ICD-10 - Z12.5) psa 11/10/2024 BPH (benign prostatic hyperplasia) (ICD-10 - N40.0) flomax 02/10/2025 Colon cancer screening (ICD-10 - Z12.11) cologuard 11/10/2024 Depression (ICD-10 - F32.9) citalopram 06/07/2024 Osteoarthritis (ICD-10 - M19.90) diclofenac 06/07/2024 Hypothyroidism, unspecified (ICD-10 - E03.9) 11/10/2024 Hypothyroid (ICD-10 - E03.9) levothyroxine tsh 11/10/2024 Neuropathic pain (ICD-10 - M79.2) gabapentin 06/07/2024 Tobacco abuse (ICD-10 - Z72.0) 06/07/[address] of the chest (ICD-10 - R93.89) ct chest 11/10/2024 Anxiety (ICD-10 - F41.9) buspar 11/10/2024 Prostate cancer screening (ICD-10 - Z12.5) psa 06/07/2024 Depression (ICD-10 - F32.9) celexa 06/07/2024 Anxiety (ICD-10 - F41.9) buspar 11/10/2024 ED (erectile dysfunction) (ICD-10 - N52.9) viagra 11/10/2024 Leg pain (ICD-10 - M79.606) 11/10/2024 Chronic obstructive pulmonary disease (COPD) (ICD-10 - J44.9) albuteral hfa 11/10/2024 Muscle spasm (ICD-10 - M62.838) flexeril 06/07/2024 Other Questions asked and answered; discharged to home. 11/10/2024 Other Questions asked and answered; discharged to home. 02/10/2025 Other Questions asked and answered; discharged to home. Venipuncture: Performed by:Mary JAMES Attempts:x1 Location: RAC Needle gauge: 22g Patient tolerated well. Plan Of Treatment Pending Test Test Name Order Date CT Chest w/ + w/o Contrast diagnostic-71 [id number] 06/07/2024 Cologuard 02/10/2025 Insurance Providers Payer Name Payer Address Payer Phone Subscriber Number Group Number Insured Name Patient Relationship to Insured Coverage Start Date Coverage End Date NOT IN NETWORK - [employer] Medicare Dual Complete HMO [address] [address] [place] [address] [phone] [id number] ALONDRA PALMA Self - patient is the insured Medications Administered Medication Instructions Date of Administration Dosage Notes DEPO-Medrol 10/15/2023 40 mg [facility] [id number] 3-01 pt tolerated well/instructed to wait 20 min dexAMETHasone 10/15/2023 4 mg [facility] 87798-3 423-00 pt tolerated well/instructed to wait 20 min Medical (General) History Medical History History ICD Code sleep apnea COPD Surgical History Surgery Date(Month/Year) surg to left hand hernia repair jaw wiring Hospitalization History Reason Date(Month/Year) see surgical history
[2025-05-26 03:30] VITALS: BP 150/84; PULSE 72; RESP 16; TEMP 36.7; O2SAT 98; BMI 22.4
--- NOTE | 2025-05-26 04:04 | XRR_ITS ---
PROCEDURE INFORMATION: Exam: XR Chest Exam date and time: 05/26/2025 4:07 AM Age: 70 years old Clinical indication: C/O cough TECHNIQUE: Imaging protocol: Radiologic exam of the chest. Views: 1 view. COMPARISON: CR XR chest 1V portable [id number] 06/13/2024 2:55 AM FINDINGS: Lungs: Low lung volumes with bilateral hilar bronchovascular crowding. Mild interstitial prominence at the lung bases. No concerning focal airspace opacity. Pleural spaces: Unremarkable. No pleural effusion. No pneumothorax. Heart/Mediastinum: No significant cardiomegaly. Bones/joints: No acute osseous abnormality. Degenerative disc disease through the thoracic spine. XR/XR chest 1V portable [id number] IMPRESSION: Very mild interstitial prominence, as can be seen with atypical/viral pneumonia. No concerning focal airspace opacity is seen to suggest bacterial pneumonia.
--- NOTE | 2025-05-26 04:27 | W.ED.URI ---
HPI - URI/Sore Throat General: Chief Complaint: Upper Respiratory Infection Stated Complaint: SOB,Throat swelling,headache Time Seen by Provider: 05/26/25 03:59 History of Present Illness: This 70-year-old gentleman was in his usual state of health until awakening at approximately 2:00 AM this morning with acute onset of throat swelling sensation. He reports that while his airway was not completely blocked, he experienced significant respiratory restriction. This was accompanied by the development of a headache and chest gurgling sounds. The patient has had a productive cough for approximately two weeks, producing phlegm that has not been green or purulent in nature. However, during this acute episode, his cough became dry and unproductive. He notes some improvement in breathing after exposure to cool air and after using his albuterol inhaler. The patient denies any recent antibiotic treatment for these symptoms. He reports being on approximately 11 medications but has not had any recent changes to his regimen related to these respiratory symptoms. Related Data Home Medications ?Medication ?Instructions ?Recorded ?Confirmed albuterol sulfate 90 mcg/actuation 2 puff inhalation 6XD PRN 01/23/23 06/13/24 aerosol inhaler Shortness Of Breath Or Wheezing diclofenac sodium 75 mg 75 mg PO BID PRN INFLAMATORY PAIN 12/22/23 06/13/24 tablet,delayed release levothyroxine 75 mcg tablet 75 mcg PO QAM 12/22/23 06/13/24 metoprolol succinate 50 mg 50 mg PO DAILY 12/22/23 06/13/24 tablet,extended release 24 hr sildenafil 100 mg tablet 100 mg PO DAILY PRN Erectile 12/22/23 06/13/24 Dysfunction tamsulosin 0.4 mg capsule 0.4 mg PO DAILY 12/22/23 06/13/24 buspirone 10 mg tablet 5 - 10 mg PO BID 06/13/24 06/13/24 citalopram 20 mg tablet 20 mg PO DAILY 06/13/24 06/13/24 gabapentin 300 mg capsule 300 mg PO BID 06/13/24 06/13/24 rosuvastatin 20 mg tablet 20 mg PO DAILY 06/13/24 06/13/24 tiotropium bromide 18 mcg capsule See Rx Instructions .Route .COMPLEX 06/13/24 06/13/24 with inhalation device (Spiriva with HandiHaler) Previous Rx's ?Medication ?Instructions ?Recorded aspirin 81 mg tablet,delayed 81 mg PO DAILY #30 tabs 01/23/23 release cyclobenzaprine 10 mg tablet 10 mg PO TID PRN muscle spasm #30 06/02/23 tabs doxycycline hyclate 100 mg tablet 100 mg PO BID 7 days #14 tabs 05/26/25 methylprednisolone 4 mg tablets in See Rx Instructions PO .COMPLEX 05/26/25 a dose pack (Medrol (Bandar)) #21 ea Allergies Allergy/AdvReac Type Severity Reaction Status Date / Time Sulfa (Sulfonamide Allergy ALGY-Rash Verified 12/22/23 11:48 Antibiotics) [facility] ED PFSH: Medical History Obstructive sleep apnea Chronic back pain COPD (chronic obstructive pulmonary disease) Lung cancer Schizophrenia Surgical History H/O hernia repair Family History Father CAD (coronary artery disease) Mother Postsurgical cardiac pacemaker in situ Social History Smoking and tobacco/nicotine status: current every day tobacco/nicotine user Alcohol intake: never Substance/Drug Use: current Physical Exam Const: COMMON NORMALS: no acute distress GENERAL APPEARANCE: cooperative; not ill appearing and not frail appearing HENMT: COMMON NORMALS: normocephalic, atraumatic and Normal external nose present HEAD & SCALP: normocephalic and atraumatic FACE & SINUS: normal facial exam and face symmetric NOSE: Normal external nose present THROAT: posterior oropharynx abnormal erythema; no exudates Eye: COMMON NORMALS: Equal, round and reactive pupils present and EOMs intact bilaterally PUPIL: Yes Equal, round and reactive pupils present Neck/C-Spine: GENERAL: Yes trachea midline Chest: CHEST: Yes Symmetrical chest wall rise Resp: COMMON NORMALS: normal respiratory effort, No retractions, No use of accessory muscles and clear to auscultation bilaterally AUSCULTATION: clear to auscultation bilaterally Cardio: COMMON NORMALS: regular rate and regular rhythm RATE: regular rate RHYTHM: regular rhythm GI: COMMON NORMALS: Normal to inspection, nondistended, normoactive bowel sounds present Extremity: COMMON NORMALS: no pedal edema Neuro: ROHAN COMA SCALE: document GCS findings [place] coma scale eye opening: Spontaneous Rohan coma scale verbal response: Orientated [place] coma scale motor response: Obey commands [place] coma scale total score: 15 SENSORY EXAM: Yes extremities (intact) Psych: COMMON NORMALS: speech normal SPEECH: Yes normal speech Skin: COMMON NORMALS: no rashes or lesions noted GENERAL SKIN EXAM: no rashes or lesions noted Course Vital Signs: Vital signs: Vital Signs Temperature 98.0 F 05/26/25 03:30 Pulse Rate 72 05/26/25 03:30 Respiratory Rate 16 05/26/25 03:30 Blood Pressure 150/84 05/26/25 03:30 Pulse Oximetry 98 05/26/25 03:30 Oxygen Delivery Me thod Room Air 05/26/25 03:30 MDM - URI/Sore Throat Medical Decision Making 70-year-old male with bronchitis symptoms. He is afebrile. He has normal oxygen saturations. Chest x-ray is negative for pneumonia, pneumothorax, effusion, etc. He is given a nebulizer treatment with some improvement. Given Solu-Medrol. He will be treated with antibiotics and a tapering dose of steroid. Outpatient follow-up. Return for worsening symptoms. He is stable for discharge. XR interpretation done by ED provider, pending radiology final review EKG Data EKG 1: Interpretation: EKG time 0334 read 0336. Sinus rhythm, rate 70, normal axis. Normal intervals. LVH criteria are met. QTc is 422. Other intervals normal. No ST wave changes. Discharge Plan Discharge Patient Disposition: Home Clinical Impression: COPD (chronic obstructive pulmonary disease) Qualifiers: COPD type: COPD with acute exacerbation Qualified Code(s): J44.1 - Chronic obstructive pulmonary disease with (acute) exacerbation Condition: Stable Prescriptions: New methylprednisolone [Medrol (Bandar)] 4 mg tablets,dose pack See Rx Instructions .ROUTE .COMPLEX Qty: 21 0RF Rx Instructions: orally per package directions doxycycline hyclate 100 mg tablet 100 mg PO BID 7 Days Qty: 14 0RF No Action cyclobenzaprine 10 mg tablet 10 mg PO TID PRN (Reason: muscle spasm) Qty: 30 0RF albuterol sulfate 90 mcg/actuation Hfa Aerosol Inhaler 2 puff INHALATION 6XD PRN (Reason: Shortness Of Breath Or Wheezing) aspirin 81 mg tablet,delayed release (DR/EC) 81 mg PO DAILY Qty: 30 0RF metoprolol succinate 50 mg tablet extended release 24 hr 50 mg PO DAILY sildenafil 100 mg tablet 100 mg PO DAILY PRN (Reason: Erectile Dysfunction) levothyroxine 75 mcg tablet 75 mcg PO QAM tamsulosin 0.4 mg capsule 0.4 mg PO DAILY diclofenac sodium 75 mg tablet,delayed release (DR/EC) 75 mg PO BID PRN (Reason: INFLAMATORY PAIN) citalopram 20 mg tablet 20 mg PO DAILY buspirone 10 mg tablet 5 - 10 mg PO BID gabapentin 300 mg capsule 300 mg PO BID rosuvastatin 20 mg tablet 20 mg PO DAILY tiotropium bromide [Spiriva with HandiHaler] 18 mcg capsule, w/inhalation device See Rx Instructions .ROUTE .COMPLEX Rx Instructions: INHALE THE CONTENTS OF ONE CAPSULE BY MOUTH ONCE DAILY. Discharge Orders: Discharge ED (Routine); Ordered 05/26/25 Ordered By: Anuj Laird Referrals: Jase,LUIS MIGUEL De La VegaN [Primary Care Provider, Nurse Practitioner] - 4-7 days Patient Instructions: COPD (Chronic Obstructive Pulmonary Disease) (ED), Opioid Safety, Pain Management, Patient Portal & Estephania Instructions Activity Restrictions/Additional Instructions: Stay hydrated. Medication as directed. Return for worsening symptoms. Call your doctor tomorrow for follow-up appointment. 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
[2025-05-26] MEDS: methylPREDNISolone sod succ 125 mg/2 mL INJ 80 MG IM (05:10)
[2025-05-26 05:11] VITALS: PULSE 57; RESP 16; O2SAT 97
[2025-05-26] MEDS: diphenhydrAMINE 50 mg/mL SDV 1mL IM (05:12)
[2025-05-26 05:20] VITALS: BP 151/80; PULSE 61; RESP 18; O2SAT 98
== END 2025-05-26 05:21 | disposition home or self-care (01) ==
PROVIDERS: Emergency Provider Emergency Medicine; PCP Nurse Practitioner Family
DX: J44.1 Chronic obstructive pulmonary disease with (acute) exacerbation (principal); Z79.82 Long term (current) use of aspirin; Z72.0 Tobacco use; Z85.118 Personal history of other malignant neoplasm of bronchus and lung
CPT/HCPCS: 71045; 94640; 96372; 99284; J1200; J2919; J9999